=== PATIENT | male | born 1955 | race Caucasian/White ===

== ENCOUNTER → 2016-06-18 | Outpatient (CLI) | payer MEDICARE, OTHER ==
--- NOTE | 2016-06-18 15:26 | XR ---
Abdomen HISTORY: Renal stone Correlation to abdomen film 25 July 2014, CT abdomen pelvis 27 August 2015 Degenerative disc changes are present in the visualized spine, there is a spinal curvature. There may be underlying femoral acetabular impingement within the hips. Postop changes are noted. Surgical cli ps in the right upper quadrant. Lung bases are clear. Overlying bowel gas, retained fecal debris may obscure underlying detail. Right-sided calculus is suspected mid to lower pole of the right kidney me asuring approximately 6 mm. IMPRESSION: Right-sided nephrolithiasis.
== END | disposition home or self-care (01) ==
LOC: RADXRMAIN 14:53
PROVIDERS: ATTEND Physician Assistant
DX: N20.0 Calculus of kidney (principal)
CPT/HCPCS: 74000

== ENCOUNTER → 2016-07-14 | Outpatient (CLI) | payer MEDICARE, OTHER ==
--- NOTE | 2016-07-14 14:16 | MR ---
MR lumbar spine wo con danika sciatica Multiplanar, multiecho imaging of the lumbar spine was obtained without contrast on a 3 Breann magnet. REFERENCE:None. FINDINGS: Paraspinal soft tissues are normal. There is a mild levoscoliosis. There are mild retrolisthesis of L1 on L2 and L2 on L3 and there is a grade 1 anterolisthesis of L4 a nd L5. Cord signal is normal. The conus ends normally at the level of the superior endplate of L2. At T12-L1, there is disc space loss. The intervertebral foramina appear well maintained. There is a b road-based disc displacement. The facets are unremarkable. At L1-2, there is severe disc space loss. There is a mild retrolisthesis. There is a bilobed disc dis placement. There is mild, bilateral intervertebral foraminal narrowing. There is mild hypertrophic ch marine and capsulitis within the facets. There is moderate central canal stenosis. At L2-3, there is severe disc space loss. There is a mild retrolisthesis. There is a broad-based disc displacement. There are hypertrophic changes in the facets. There is moderate central canal compromi se. There is mild right-sided intervertebral foraminal narrowing. At L3-4, there is disc space loss. There is a broad-based disc displacement extending into the interv ertebral foramina bilaterally causing intervertebral foraminal narrowing. There are fairly marked hyp ertrophic changes in the facets. There is moderate central canal stenosis. At L4-5, there is a grade 1 anterolisthesis of L4 on L5. This prominent pseudodisc. The intervertebra l foramina appear reasonably well-maintained. There are marked degenerative changes in the facets. At L5-S1, there is disc space loss. There is a broad-based disc protrusion extending into both interv ertebral foramina and causing bilateral intervertebral foraminal narrowing. There is effacement of th e thecal sac without definite neural compression. There is mild hypertrophic changes and capsulitis w ithin the facets. IMPRESSION: 1. DIFFUSE DEGENERATIVE DISC DISEASE AND FACET ARTHROPATHY. 2. MULTILEVEL INTERVERTEBRAL FORAMINAL NARROWING. 3. VARYING DEGREES OF CENTRAL CANAL COMPROMISE, MOST MARKED AT L1-2. 4. GRADE 1 ANTEROLISTHESIS OF L4 ON L5. 5. BROAD-BASED DISC PROTRUSION, L5-S1, EXTENDING INTO BOTH INTERVERTEBRAL FORAMINA AND CAUSING BILATE RAL INTERVERTEBRAL FORAMINAL NARROWING.
== END | disposition home or self-care (01) ==
LOC: RADMRIMAIN 12:03
PROVIDERS: ATTEND Specialist
DX: M99.73 Connective tissue and disc stenosis of intervertebral foramina of lumbar region (principal); M51.27 Other intervertebral disc displacement, lumbosacral region; M43.16 Spondylolisthesis, lumbar region; M51.36 Other intervertebral disc degeneration, lumbar region; M46.96 Unspecified inflammatory spondylopathy, lumbar region
CPT/HCPCS: 72148

== ENCOUNTER → 2016-07-14 | Outpatient (CLI) | payer MEDICARE, OTHER ==
--- NOTE | 2016-07-14 14:09 | MR ---
EXAMINATION TYPE: MR shoulder LT wo con DATE OF EXAM: 07/14/2016 1:41 PM COMPARISON: Chest x-ray April 22, 2015 HISTORY: Left shoulder pain with difficulty raising overhead. TECHNIQUE: Multiplanar, multisequence imaging of the left shoulder is performed without contrast. FINDINGS: Exam is noted suboptimal as is significantly degraded by patient motion. Rotator Cuff: Increased signal is seen in the distal supraspinatus and infraspinatus tendons without definitive focal partial or full-thickness retracted tear. Rotator cuff muscle bulk is preserved. Sub scapularis tendon is grossly intact on axial image 17. Acromioclavicular Joint: There is joint space loss with moderate spurring and capsular hypertrophy. I nferior fat plane is maintained. Distal acromion morphology is unremarkable. Glenohumeral Joint: There is small to moderate glenohumeral joint effusion. Labrum: The labrum appears grossly intact given limitation of non-arthrogram study. Biceps Tendon: The long head of biceps is in normal location within bicipital groove. Bone marrow signal: No focal abnormal marrow signal is appreciated. Other: No additional significant abnormality is appreciated. IMPRESSION: Suboptimal study, there is tendinosis of distal supraspinatus and infraspinatus tendons. No significant rotator cuff or labral tear is identified. Other findings as noted above.
== END | disposition home or self-care (01) ==
LOC: RADMRIMAIN 12:10
PROVIDERS: ATTEND Physical Medicine & Rehabilitation
DX: M67.814 Other specified disorders of tendon, left shoulder (principal); M25.812 Other specified joint disorders, left shoulder

== ENCOUNTER → 2016-10-12 | Outpatient (CLI) | payer OTHER ==
--- NOTE | 2016-10-12 14:02 | MR ---
EXAMINATION TYPE: MR cervical spine wo con DATE OF EXAM: 10/12/2016 11:54 AM COMPARISON: Prior MR cervical spine 28 February 2015 HISTORY: cervical facet syndrome TECHNIQUE: Multiplanar, multisequence images of the cervical spine were acquired. C2-C3: There is some mild right-sided foraminal encroachment. No sizable disc herniation or significa nt central canal stenosis.. C3-C4: Posterior central disc herniation causes anterior mass effect on the thecal sac. There is bila teral foraminal encroachment similar to prior exam. Mild anterolisthesis grade 1 C3-4. There may be c ontact of the disc herniation with the anterior cervical cord. C4-C5: Foraminal encroachment is present right greater than left. Disc herniation is somewhat smaller than on prior exam. There may be contact the anterior cervical cord, there is mild central canal cody nosis. C5-C6: Posterior extension of endplate disc complex results in moderate central canal stenosis. There is bilateral foraminal encroachment due to lateral extension of endplate disc complex, uncovertebral joint hypertrophy facet arthropathy. Findings similar to prior exam. C6-C7: Bilateral foraminal encroachment is present. Posterior extension of endplate disc complex resu lts in mild anterior mass effect on the thecal sac. C7-T1: Left-sided greater than right foraminal encroachment is present. Cervical segments are intact. There is normal alignment. Cervical spinal cord is of normal signal. Craniovertebral junction relationships are within normal limits. Patient is status post anterior ce rvical discectomy and cervical fusion. Susceptibility artifact is present due to the anterior hardwar e at C4-5. IMPRESSION: Multilevel degenerative disc disease is noted as on prior exam. Multilevel foraminal encroachment. Po stop changes.
--- NOTE | 2016-10-12 14:58 | MR ---
EXAMINATION TYPE: MR shoulder LT wo con DATE OF EXAM: 10/12/2016 11:55 AM COMPARISON: Prior shoulder MRI June HISTORY: pain in lt shoulder TECHNIQUE: Multiplanar, multisequence imaging of the left shoulder is performed without contrast. FINDINGS: Rotator Cuff: Abnormal thickening and increased signal is present within the rotator cuff similar to previous exam. Partial tear is suspected at the level of the posterior insertion of the rotator cuff. Acromioclavicular Joint: Hypertrophic changes present causing mass effect on the musculotendinous mauro ction of supraspinatus. Glenohumeral Joint: Intact. Mild arthropathy change is suspected with remodeling present at the humer al head. Labrum: Similar appearance to prior exam. No definite labral tear. Biceps Tendon: Long head of biceps tendon shows normal position in the bicipital groove, there is ravi e fluid signal present along the tendon. Bone marrow signal: Maintained. No significant marrow edema. Other: Distal acromial spur is suspected. Fluid signal present in the subacromial subdeltoid bursa. IMPRESSION: Findings are similar to prior exam. Partial tear is suspected of the rotator cuff, there is tendinosi s present, correlate for impingement. There is some motion on the exam. Additional findings above.
--- NOTE | 2016-10-12 15:05 | MR ---
EXAMINATION TYPE: MR shoulder RT wo con DATE OF EXAM: 10/12/2016 12:14 PM COMPARISON: NONE HISTORY: pain in rt shoulder TECHNIQUE: Multiplanar, multisequence imaging of the right shoulder is performed without contrast. FINDINGS: Rotator Cuff: There is abnormal increased signal involving the rotator cuff. Partial inferior surface tear is suspected of the infraspinatus, there is some motion on the exam. Abnormal thickening presen t at the rotator cuff tendon. Acromioclavicular Joint: Hypertrophic changes present causing mass effect on the musculotendinous mauro ction of supraspinatus Glenohumeral Joint: Intact. Labrum: Superior labrum shows a tear, findings compatible with SLAP lesion. Biceps Tendon: The long head of biceps is in normal location within bicipital groove. Bone marrow signal: No focal abnormal marrow signal is appreciated. Other: Fluid signal is present in the subacromial subdeltoid bursa. Suspect a small distal acromial s pur. IMPRESSION: Partial full-thickness tear of the rotator cuff, correlate for impingement. Findings suggest SLAP les ion.
== END | disposition home or self-care (01) ==
LOC: RADMRIMAIN 10:46
PROVIDERS: ATTEND Physical Medicine & Rehabilitation
DX: M75.111 Incomplete rotator cuff tear or rupture of right shoulder, not specified as traumatic (principal); M50.30 Other cervical disc degeneration, unspecified cervical region; M75.82 Other shoulder lesions, left shoulder; V89.2XXA Person injured in unspecified motor-vehicle accident, traffic, initial encounter; Z98.890 Other specified postprocedural states
CPT/HCPCS: 72141

== ENCOUNTER 2017-03-06 13:03 | Emergency (ER) | payer MEDICARE, OTHER ==
[2017-03-06 13:17] VITALS: BP 141/83; PULSE 63; RESP 18; TEMP 97.9
--- NOTE | 2017-03-06 14:31 | XR ---
EXAMINATION TYPE: XR forearm RT, XR wrist complete RT DATE OF EXAM: 03/06/2017 CLINICAL HISTORY: Pain since yesterday TECHNIQUE: Two views of the right forearm are obtained. 4 views of the right wrist are acquired. COMPARISON: None. FINDINGS: There is no acute fracture or dislocation seen in the right radius or ulna. The right elb ow and joint appears within normal limits. The overlying soft tissue appears within normal limits. Images of right wrist show no acute fracture or dislocation. The carpal joint spaces are maintained. Overlying soft tissue is unremarkable. IMPRESSION: Unremarkable studies.
--- NOTE | 2017-03-06 14:35 | ED ---
Extremity Problem HPI - General Chief complaint: Extremity Problem,Nontraumatic Stated complaint: Wrist/Hand Injury Time Seen by Provider: 03/06/17 13:44 Source: patient Mode of arrival: ambulatory Limitations: no limitations - History of Present Illness Initial comments: Patient is a right-handed 61-year-old male with medical history significant for right carpal tunnel syndrome, bilateral rotator cuff disease, chronic neck pain, and chronic lower back pain. Patient presents to the emergency department with chief complaint of right wrist pain that started yesterday at 12 PM. Patient currently rates pain 8 out of 10 described as sharp and burning. Pain is exacerbated with movement, minimally relieved at rest. Patient states the pain is radiating up his right forearm and down into his hand. Patient denies trauma or injury to right wrist. Patient states he see a neurologist in [place] for chronic pain management and received steroid injections approximately 2 weeks ago for neck and shoulder pain. Patient denies recent fevers, chills, nausea, vomiting, shortness of breath, chest pain, or abdominal pain. Patient reports chronic numbness and tingling to his right ring finger and right middle finger. Patient states he normally takes [place] and Lyrica for pain but is currently out of [place]. Patient states he took Lyrica this morning without relief. - Related Data Home Medications Medication Instructions Recorded Confirmed Amitriptyline HCl [Elavil] 75 mg PO HS 07/25/14 07/27/14 Aspirin EC [Ecotrin] 81 mg PO DAILY 07/25/14 07/27/14 Atorvastatin [Lipitor] 10 mg PO DAILY 07/25/14 07/27/14 Furosemide [Lasix] 20 mg PO DAILY 07/25/14 07/27/14 Lisinopril [Zestril] 5 mg PO DAILY 07/25/14 07/27/14 Metoprolol Tartrate [Lopressor] 25 mg PO BID 07/25/14 07/27/14 Modafinil [Provigil] 100 mg PO DAILY 07/25/14 07/27/14 Multivitamin [Men's Multi-Vitamin] 1 each PO DAILY 07/25/14 07/27/14 Potassium Chloride [K-Tab ER] 10 meq PO DAILY 07/25/14 07/27/14 Sertraline HCl [Zoloft] 100 mg PO DAILY 07/25/14 07/27/14 lamoTRIgine [LaMICtal] 150 mg PO BID 07/25/14 07/27/14 metFORMIN HCL [Glucophage] 500 mg PO DAILY 07/25/14 07/27/14 Ferrous Sulfate [Feosol] 325 mg PO DAILY 03/06/17 03/06/17 Fish Oil/Dha/Epa [Fish Oil 1,200 1 cap PO DAILY 03/06/17 03/06/17 mg Fish Oil] Gabapentin 800 mg PO BID 03/06/17 03/06/17 HYDROcodone/APAP 5-325MG [[place] 1 tab PO BID 03/06/17 03/06/17 5-325] Previous Rx's Medication Instructions Recorded HYDROcodone/APAP 5-325MG [[place] 1 tab PO Q4HR PRN #12 tab 03/06/17 5-325] Allergies Allergy/AdvReac Type Severity Reaction Status Date / Time codeine Allergy Hallucinati Verified 03/06/17 14:33 ons donepezil HCl [From Aricept] Allergy Hallucinati Verified 03/06/17 14:33 ons Penicillins Allergy Unknown Verified 03/06/17 14:33 Childhood Review of Systems ROS Statement: Those systems with pertinent positive or pertinent negative responses have been documented in the HPI. ROS Other: All systems not noted in ROS Statement are negative. Past Medical History Past Medical History: Diabetes Mellitus, Hyperlipidemia, Hypertension, Rheumatoid Arthritis (RA) Additional Past Medical History / Comment(s): brain injury, neuropathy, chronic back and shoulder pain History of Any Multi-Drug Resistant Organisms: None Reported Past Surgical History: Cholecystectomy, Hernia Repair Additional Past Surgical History / Comment(s): splenectomy, neck surg, left eye Past Psychological History: Anxiety, Bipolar, Depression, Schizophrenia Smoking Status: Current every day smoker Past Alcohol Use History: Daily Past Drug Use History: None Reported General Exam Limitations: no limitations General appearance: alert, in no apparent distress Head exam: Present: atraumatic, normocephalic, normal inspection Eye exam: Present: normal appearance ENT exam: Present: normal exam, mucous membranes moist, normal external ear exam Neck exam: Present: normal inspection, full ROM. Absent: tenderness, lymphadenopathy Respiratory exam: Present: normal lung sounds bilaterally. Absent: respiratory distress, wheezes, rales, rhonchi, chest wall tenderness Cardiovascular Exam: Present: regular rate, normal rhythm, normal heart sounds. Absent: systolic murmur GI/Abdominal exam: Present: soft, normal bowel sounds. Absent: distended, tenderness Right Elbow exam: Present: normal inspection, full ROM. Absent: tenderness, swelling Forearm Wrist exam: Present: normal inspection, tenderness (Right wrist tender to palpation over both distal ulnar and radial bones. Decreased range of motion with flexion and extension, ulnar and radial deviation secondary to pain. ). Absent: full ROM (Decreased range of motion), swelling, ecchymosis, deformity Hand Wrist exam: Absent: full ROM Neuro motor exam: Present: wrist extension intact (Painful), thumb IP flexion intact, thumb adduction intact, fingers 2-5 abduction intact. Absent: thumb opposition intact Neurosensory exam: Present: 2-point discrimination, radial nerve intact, median nerve intact. Absent: ulnar nerve intact Vascular: Present: normal capillary refill, radial pulse, brachial pulse, ulnar pulse. Absent: vascular compromise, Pallo Neurological exam: Present: alert, oriented X3 Psychiatric exam: Present: normal affect, normal mood Skin exam: Present: warm, dry, intact, normal color Course Vital Signs 03/06/17 13:14 Temperature 97.9 F Pulse Rate 63 Respiratory 18 Rate Blood Pressure 141/83 O2 Sat by Pulse 100 Oximetry Procedures - Orthopedic Splinting/Casting Injury #1 Side: right Upper Extremity Injury Location: wrist Upper Extremity Immobilizer: volar splint Additional Comments: No neurovascular compromise after splint application; the splint was in good alignment and the patient had good sensation and capillary refill at time of discharge. Medical Decision Making - Medical Decision Making Right wrist sprain. X-ray of right wrist and right forearm with no acute fracture or dislocation. Patient placed in a volar splint and given prescription for [place] 5 for 2 days until he can pick up attendant his regular prescription. Patient instructed to [facility]. Patient instructed to return to the emergency department with any new or worsening symptoms. Patient agrees to treatment plan. - Radiology Data Radiology results: report reviewed X-ray right wrist and right forearm: No acute fracture or dislocation seen on the right radius ulna. The right elbow joint appears within normal limits. Overlying soft tissue appears within normal limits. Images of right wrist show no acute fracture or dislocation. Carpal joint spaces are maintained. Overlying soft tissue is unremarkable. Disposition Clinical Impression: Right wrist sprain Disposition: HOME SELF-CARE Condition: Good Instructions: Splint Care (ED) Additional Instructions: Avoid activity that causes pain Ice 20 minutes 4 times a day usually for 2-3 days Splint applied to provide support and limit swelling Keep elevated as much as possible 24-48 hours. Return to the emergency department with symptoms of increased swelling, pain, numbness, tingling, or hand feeling cold to touch. Follow-up with primary service and orthopedic service as directed. Prescriptions: HYDROcodone/APAP 5-325MG [[place] 5-325] 1 tab PO Q4HR PRN #12 tab PRN Reason: Pain Referrals: Rishi Pettit DO [Primary Care Provider] - 1-2 days Rishi Rush DO [Doctor of Osteopathic Medicine] - 1-2 days Time of Disposition: 15:01
[2017-03-06] MEDS ORDERED: HYDROcodone/APAP 5-325MG 1 EACH TAB PO STA (14:57)
== END 2017-03-06 15:18 | disposition home or self-care (01) ==
LOC: EC 13:03
DX: S63.501A Unspecified sprain of right wrist, initial encounter (principal); M54.2 Cervicalgia; M54.5 Low back pain; G89.29 Other chronic pain; E78.5 Hyperlipidemia, unspecified; I10 Essential (primary) hypertension; M06.9 Rheumatoid arthritis, unspecified; E11.40 Type 2 diabetes mellitus with diabetic neuropathy, unspecified; F41.9 Anxiety disorder, unspecified; F31.9 Bipolar disorder, unspecified; F20.9 Schizophrenia, unspecified; F17.200 Nicotine dependence, unspecified, uncomplicated; Z79.82 Long term (current) use of aspirin; Z79.84 Long term (current) use of oral hypoglycemic drugs; Z79.891 Long term (current) use of opiate analgesic; Z79.899 Other long term (current) drug therapy; Z88.0 Allergy status to penicillin; Z88.5 Allergy status to narcotic agent; Z88.8 Allergy status to other drugs, medicaments and biological substances
CPT/HCPCS: 29125; 99283

== ENCOUNTER 2017-04-21 12:35 | Emergency (ER) | payer MEDICARE, OTHER ==
[2017-04-21 13:17] LABS: Basophils # (A) 0.1 k/uL (0-0.2); Basophils % (A) 1 %; CH 32.4; Eosinophils # (A) 0.5 k/uL (0-0.7); Eosinophils % (A) 4 %; HDW 2.54; HGB 15.2 gm/dL (13.0-17.5); Luc # (Auto) 0.19; Luc % (Auto) 2; Lymphocytes # (A) 3.6 k/uL (1.0-4.8); Lymphocytes % (A) 34 %; MCH 31.4 pg (25.0-35.0); MCHC 31.7 g/dL (31.0-37.0); MCV 98.8 fL (80.0-100.0); Mean Platelet Volume 7.8; Monocytes # (A) 0.8 k/uL (0-1.0); Monocytes % (A) 7 %; Neutrophils # (A) 5.6 k/uL (1.3-7.7); Neutrophils % (A) 52 %; RBC 4.86 m/uL (4.30-5.90); RDW 14.3 % (11.5-15.5); WBC 10.8 k/uL (3.8-10.6); WBC (Perox) 11.01
[2017-04-21 13:22] LABS: Partial Thromboplastin Time 24.5 sec (22.0-30.0); Prothrombin Time 10.3 sec (9.0-12.0)
--- NOTE | 2017-04-21 13:22 | ED ---
General Adult HPI - General Chief complaint: Fall Stated complaint: fall Time Seen by Provider: 04/21/17 12:40 Source: patient, EMS, RN notes reviewed Mode of arrival: EMS Limitations: no limitations - History of Present Illness Initial comments: 61-year-old male with history of traumatic brain injury presents status post fall fall. Patient fell striking his head. EMS believe there was loss of consciousness. Patient does not remember the events immediately after the fall. He does remember falling, states he lost his balance and tripped. Denied any preceding symptoms. Denied chest pain or shortness of breath. Currently complaining of head and neck pain and left shoulder pain. Denies chest pain, denies abdominal pain. Denies lower extremity pain. Patient was ambulatory after the fall. Denies fever or chills. Denies nausea vomiting or diarrhea. - Related Data Home Medications Medication Instructions Recorded Confirmed Amitriptyline HCl [Elavil] 75 mg PO HS 07/25/14 04/21/17 Aspirin EC [Ecotrin] 81 mg PO DAILY 07/25/14 04/21/17 Atorvastatin [Lipitor] 10 mg PO DAILY 07/25/14 04/21/17 Furosemide [Lasix] 20 mg PO DAILY 07/25/14 04/21/17 Lisinopril [Zestril] 5 mg PO DAILY 07/25/14 04/21/17 Metoprolol Tartrate [Lopressor] 25 mg PO BID 07/25/14 04/21/17 Modafinil [Provigil] 100 mg PO DAILY 07/25/14 04/21/17 Multivitamin [Men's Multi-Vitamin] 1 tab PO DAILY 07/25/14 04/21/17 Potassium Chloride [K-Tab ER] 10 meq PO DAILY 07/25/14 04/21/17 Sertraline HCl [Zoloft] 100 mg PO DAILY 07/25/14 04/21/17 lamoTRIgine [LaMICtal] 150 mg PO BID 07/25/14 04/21/17 metFORMIN HCL [Glucophage] 500 mg PO DAILY 07/25/14 04/21/17 Fish Oil/Dha/Epa [Fish Oil 1,200 1 cap PO DAILY 03/06/17 04/21/17 mg Fish Oil] Gabapentin 800 mg PO BID 03/06/17 04/21/17 Ferrous Sulfate [Iron] 325 mg PO DAILY 04/21/17 04/21/17 HYDROcodone/APAP 7.5-325MG [[place] 1 tab PO BID PRN 04/21/17 04/21/17 7.5-325] Allergies Allergy/AdvReac Type Severity Reaction Status Date / Time codeine Allergy Hallucinati Verified 04/21/17 12:54 ons donepezil HCl [From Aricept] Allergy Hallucinati Verified 04/21/17 12:54 ons Penicillins Allergy Unknown Verified 04/21/17 12:54 Childhood Review of Systems ROS Statement: Those systems with pertinent positive or pertinent negative responses have been documented in the HPI. ROS Other: All systems not noted in ROS Statement are negative. Past Medical History Past Medical History: Diabetes Mellitus, Hyperlipidemia, Hypertension, Rheumatoid Arthritis (RA) Additional Past Medical History / Comment(s): brain injury, neuropathy, chronic back and shoulder pain History of Any Multi-Drug Resistant Organisms: None Reported Past Surgical History: Cholecystectomy, Hernia Repair Additional Past Surgical History / Comment(s): splenectomy, neck surg, left eye Past Psychological History: Anxiety, Bipolar, Depression, Schizophrenia Smoking Status: Current every day smoker Past Alcohol Use History: Daily Past Drug Use History: None Reported General Exam Limitations: no limitations General appearance: alert, in no apparent distress Head exam: Present: atraumatic, normocephalic Eye exam: Absent: PERRL (Left pupil nonreactive status post lensectomy) ENT exam: Present: normal exam Neck exam: Present: normal inspection. Absent: tenderness Respiratory exam: Present: normal lung sounds bilaterally. Absent: respiratory distress Cardiovascular Exam: Present: regular rate, normal rhythm GI/Abdominal exam: Present: soft. Absent: distended, tenderness Extremities exam: Present: normal inspection. Absent: full ROM, tenderness Back exam: Present: normal inspection, full ROM. Absent: tenderness Neurological exam: Present: alert, oriented X3. Absent: motor sensory deficit Psychiatric exam: Present: normal affect, normal mood Skin exam: Present: warm, dry, intact. Absent: cyanosis, diaphoretic Course Vital Signs 04/21/17 04/21/17 04/21/17 12:41 13:45 15:00 Temperature 98.6 F Pulse Rate 65 56 L 71 Respiratory 18 18 20 Rate Blood Pressure 135/77 151/56 141/58 O2 Sat by Pulse 97 97 99 Oximetry EKG Findings - EKG Comments: EKG Findings:: EKG shows normal sinus rhythm, ventricular rate 64, NC interval 162, QRS duration 112, QTC 420, no signs of arrhythmia or ischemia Medical Decision Making - Medical Decision Making 61-year-old presents status post fall. Patient states he lost his balance, mechanical fall. Complaining of head and neck pain. As well as shoulder pain. Laboratory studies obtained, within normal limits. EKG shows no arrhythmia or ischemia. CT head is negative for intracranial process, CT cervical spine negative for fracture subluxation. X-ray of shoulder negative for fracture dislocation. Chest x-ray shows possible right 10th rib fracture, however patient has no pain in this region. Doubt acute fracture. Pelvis x-ray shows no acute findings. Patient will follow-up with primary care physician. Discharged in stable condition. - Lab Data Result diagrams: 04/21/17 13:00 04/21/17 13:00 Lab Results 04/21/17 04/21/17 04/21/17 Range/Units 13:00 13:00 13:00 WBC 10.8 H (3.8-10.6) k/uL RBC 4.86 (4.30-5.90) m/uL Hgb 15.2 (13.0-17.5) gm/dL Hct 48.0 (39.0-53.0) % MCV 98.8 (80.0-100.0) fL MCH 31.4 (25.0-35.0) pg MCHC 31.7 (31.0-37.0) g/dL RDW 14.3 (11.5-15.5) % Plt Count 306 (150-450) k/uL Neutrophils % 52 % Lymphocytes % 34 % Monocytes % 7 % Eosinophils % 4 % Basophils % 1 % Neutrophils # 5.6 (1.3-7.7) k/uL Lymphocytes # 3.6 (1.0-4.8) k/uL Monocytes # 0.8 (0-1.0) k/uL Eosinophils # 0.5 (0-0.7) k/uL Basophils # 0.1 (0-0.2) k/uL PT 10.3 (9.0-12.0) sec INR 1.0 (<1.2) APTT 24.5 (22.0-30.0) sec Sodium 139 (137-145) mmol/L Potassium 4.4 (3.5-5.1) mmol/L Chloride 102 (98-107) mmol/L Carbon Dioxide 29 (22-30) mmol/L Anion Gap 8 mmol/L BUN 13 (9-20) mg/dL Creatinine 0.76 (0.66-1.25) mg/dL Est GFR (MDRD) Af Amer >60 (>60 ml/min/1.73 sqM) Est GFR (MDRD) Non-Af >60 (>60 ml/min/1.73 sqM) Glucose 95 (74-99) mg/dL Calcium 9.7 (8.4-10.2) mg/dL Total Bilirubin 0.3 (0.2-1.3) mg/dL AST 21 (17-59) U/L ALT 30 (21-72) U/L Alkaline Phosphatase 109 (38-126) U/L Total Protein 7.4 (6.3-8.2) g/dL Albumin 4.2 (3.5-5.0) g/dL Disposition Clinical Impression: Fall, Shoulder contusion, Closed head injury Disposition: HOME SELF-CARE Condition: Good Instructions: Fall Prevention for Older Adults (ED), Concussion (ED), Facial Contusion (ED) Referrals: Rishi Pettit DO [Primary Care Provider] - 1-2 days Time of Disposition: 15:40
[2017-04-21 13:30] LABS: ALT 30 U/L (21-72); AST 21 U/L (17-59); Alkaline Phosphatase 109 U/L (38-126); Anion Gap 8 mmol/L; Blood Urea Nitrogen 13 mg/dL (9-20); Calcium 9.7 mg/dL (8.4-10.2); Carbon Dioxide 29 mmol/L (22-30); Chloride 102 mmol/L (98-107); Glucose 95 mg/dL (74-99); Non-African American GFR(MDRD) >60 (>60 ml/min/1.73 sqM); Potassium 4.4 mmol/L (3.5-5.1); Sodium 139 mmol/L (137-145); Total Bilirubin 0.3 mg/dL (0.2-1.3); Total Protein 7.4 g/dL (6.3-8.2)
--- NOTE | 2017-04-21 14:05 | CT ---
EXAMINATION TYPE: CT brain cspine wo con DATE OF EXAM: 04/21/2017 COMPARISON: CT cervical spine April 08, 2015. CT brain December 17, 2011 HISTORY: Patient poor historian. Fall. CT DLP: 1836 mGycm. Automated Exposure Control for Dose Reduction was Utilized. TECHNIQUE: CT scan of the head and cervical spine are performed without contrast. FINDINGS: There is no acute intracranial hemorrhage or midline shift identified. The ventricles an d sulci are within normal limits in size. Some vague areas of low-attenuation throughout the white ma tter redemonstrated, this is nonspecific finding but most likely on basis of product of chronic small vessel ischemic change in patient this age. There is mild to moderate mucosal thickening in visualiz ed portion of ethmoid and sphenoid sinuses as well as inferior frontal sinuses. Cervical spine is visualized in its entirety from C1 through upper thoracic levels and demonstrates s table and straightened alignment without evidence of acute fracture or dislocation. Prevertebral sof t tissue appears within normal limits. The C1-C2 articulation is within normal limits on the coronal images. There is new anterior fusion plate and anterior disc material C4-C5 level. There is now moderate to s evere disc space narrowing posteriorly at this level. There is persistent moderate to severe spurring and disc space narrowing C5-C6 and C6-C7 levels. Spinal canal is grossly preserved. Review of axial images show some uncovertebral facet degenerative changes right C2-C3 level, and bilateral C3-C4 leve l contributing to bilateral neural foraminal narrowing. There are some marginal spurring contributing to bilateral neural foraminal narrowing in the mid to lower cervical spine. Emphysematous change is seen in visualized lung apices. Prominent but subcentimeter lymph nodes scattered throughout the neck are appreciated bilaterally. IMPRESSION: 1. There is no acute fracture or dislocation evident in the cervical spine. Interval surgery C4-C5 le rolando. Stable and straightening alignment is noted. 2. No acute intracranial hemorrhage or midline shift. Mild to moderate nonspecific white matter bennett es most likely on basis of product of chronic small vessel ischemic change in patient of this age red emonstrated.
--- NOTE | 2017-04-21 15:06 | XR ---
EXAMINATION TYPE: XR chest 1V portable DATE OF EXAM: 04/21/2017 COMPARISON: Prior chest x-ray 04/22/2015 HISTORY: Fall, pain TECHNIQUE: Single frontal view of the chest is obtained. FINDINGS: There is no focal air space opacity, pleural effusion, or pneumothorax seen. The cardiac silhouette size is within normal limits. There are overlying cardiac leads. The osseous structures a re remarkable for possible displaced posterior rib fracture on the right 10th rib. IMPRESSION: Possible posterior right 10th rib fracture.
--- NOTE | 2017-04-21 15:07 | XR ---
AP pelvis HISTORY: Trauma and pain Single frontal view of the pelvis, no comparisons Bone mineralization, joint spaces and alignment are maintained. Degenerative disc changes in the visu alized spine. Postop changes are noted in the abdomen. IMPRESSION: No acute fracture or dislocation is evident.
--- NOTE | 2017-04-21 15:09 | XR ---
Left shoulder HISTORY: Trauma and pain 3 views of the left shoulder No comparisons Hypertrophic change present at the acromioclavicular joint. Ossific density present lateral to the pr oximal left humerus is well-corticated and not felt likely to be acute. Alignment, bone mineralizatio n are maintained. Left lung apex as visualized is normal. Suspect local soft tissue swelling. IMPRESSION: No acute fracture or dislocation.
[2017-04-21] MEDS ORDERED: MORPHINE SULFATE 2 MG/ML SYRINGE IVP STA (15:47)
[2017-04-21] MEDS ORDERED: KETOROLAC 30 MG/ML 1 ML VIAL IVP STA (15:47)
[2017-04-21 16:10] VITALS: BP 124/68; PULSE 66; RESP 18; TEMP 98.3
== END 2017-04-21 16:15 | disposition home or self-care (01) ==
LOC: EC 12:35
DX: S40.012A Contusion of left shoulder, initial encounter (principal); S09.90XA Unspecified injury of head, initial encounter; H27.02 Aphakia, left eye; M54.2 Cervicalgia; E78.5 Hyperlipidemia, unspecified; I10 Essential (primary) hypertension; G62.9 Polyneuropathy, unspecified; E11.9 Type 2 diabetes mellitus without complications; G89.29 Other chronic pain; F31.9 Bipolar disorder, unspecified; F41.9 Anxiety disorder, unspecified; F17.200 Nicotine dependence, unspecified, uncomplicated; Z79.82 Long term (current) use of aspirin; Z79.84 Long term (current) use of oral hypoglycemic drugs; Z79.899 Other long term (current) drug therapy; Z88.0 Allergy status to penicillin; Z88.5 Allergy status to narcotic agent; Z88.8 Allergy status to other drugs, medicaments and biological substances; Z98.890 Other specified postprocedural states; W01.10XA Fall on same level from slipping, tripping and stumbling with subsequent striking against unspecified object, initial encounter; Y92.59 Other trade areas as the place of occurrence of the external cause
CPT/HCPCS: 36415; 93005; 80053; 85025; 85610; 85730; 71010; 72170; 73030; 72125; 70450; 99285; 96374; 96375; J1885; J2270

== ENCOUNTER → 2017-06-21 | Outpatient (CLI) | payer MEDICARE, OTHER ==
[2017-06-21 15:43] LABS: Basophils # (A) 0.1 k/uL (0-0.2); Basophils % (A) 1 %; Eosinophils # (A) 0.3 k/uL (0-0.7); Eosinophils % (A) 3 %; HCT 50.3 % (39.0-53.0); HGB 16.4 gm/dL (13.0-17.5); Lymphocytes # (A) 4.1 k/uL (1.0-4.8); Lymphocytes % (A) 35 %; MCH 31.5 pg (25.0-35.0); MCHC 32.6 g/dL (31.0-37.0); MCV 96.6 fL (80.0-100.0); Mean Platelet Volume 7.5; Monocytes # (A) 0.6 k/uL (0-1.0); Monocytes % (A) 5 %; Neutrophils # (A) 6.3 k/uL (1.3-7.7); Neutrophils % (A) 54 %; Platelet Count 281 k/uL (150-450); RBC 5.21 m/uL (4.30-5.90); RDW 13.4 % (11.5-15.5); WBC 11.7 k/uL (3.8-10.6)
[2017-06-21 16:14] LABS: ALT 25 U/L (21-72); AST 20 U/L (17-59); Albumin 4.8 g/dL (3.5-5.0); Alkaline Phosphatase 126 U/L (38-126); Anion Gap 12 mmol/L; Blood Urea Nitrogen 15 mg/dL (9-20); Calcium 10.9 mg/dL (8.4-10.2); Carbon Dioxide 31 mmol/L (22-30); Chloride 99 mmol/L (98-107); Cholesterol 158 mg/dL (<200); Creatine Kinase 83 U/L (55-170); Glucose 108 mg/dL (74-99); HDL Cholesterol 47 mg/dL (40-60); LDL Cholesterol,Calculated 91 mg/dL (0-99); Sodium 142 mmol/L (137-145); Total Bilirubin 0.6 mg/dL (0.2-1.3); Total Protein 8.2 g/dL (6.3-8.2); Triglycerides 98 mg/dL (<150)
== END | disposition home or self-care (01) ==
LOC: LABWHC1 14:40
PROVIDERS: ATTEND Physician Assistant Medical
DX: E78.2 Mixed hyperlipidemia (principal); E11.9 Type 2 diabetes mellitus without complications; I10 Essential (primary) hypertension; E55.9 Vitamin D deficiency, unspecified
CPT/HCPCS: 36415; 80053; 80061; 82306; 82550; 84153; 84154; 84443; 85025

== ENCOUNTER 2017-10-14 18:36 | Emergency (ER) | payer MEDICARE, OTHER ==
[2017-10-14 18:56] VITALS: BP 126/73; PULSE 83; RESP 18; TEMP 99.1
--- NOTE | 2017-10-14 19:40 | XR ---
EXAMINATION TYPE: XR foot limited RT DATE OF EXAM: 10/14/2017 COMPARISON: NONE HISTORY: Laceration. Pain. TECHNIQUE: 2 views FINDINGS: There is some spurring at the first MP joint. I see no fracture nor dislocation. There is n o sign of a foreign body. There are small plantar and Achilles calcaneal spurs. IMPRESSION: Mild spurring. No fracture seen. No foreign body seen.
--- NOTE | 2017-10-14 19:50 | ED ---
Lower Extremity Injury HPI - General Chief Complaint: Extremity Injury, Lower Stated Complaint: Stepped on glass Time Seen by Provider: 10/14/17 19:13 Source: patient, RN notes reviewed Mode of arrival: ambulatory Limitations: no limitations - History of Present Illness Initial Comments: This is a 62-year-old male who presents to the emergency department with chief complaint of right foot injury. Patient states that 2 hours prior to arrival he was walking barefoot outside. He states that he stepped on what he thought was a piece of glass. He states that he felt something in there and pulled but was unsure if he pulled it out. He called his friend who came over and cleaned the wound with alcohol and then wrapped it. Patient states that when he steps down he feels something in his foot. Denies any other injuries or trauma. Denies recent fevers or chills, chest pain or shortness breath, abdominal pain, nausea or vomiting. - Related Data Home Medications Medication Instructions Recorded Confirmed Amitriptyline HCl [Elavil] 75 mg PO HS 07/25/14 10/14/17 Aspirin EC [Ecotrin] 81 mg PO DAILY 07/25/14 10/14/17 Atorvastatin [Lipitor] 10 mg PO DAILY 07/25/14 10/14/17 Furosemide [Lasix] 20 mg PO DAILY 07/25/14 10/14/17 Lisinopril [Zestril] 5 mg PO DAILY 07/25/14 10/14/17 Metoprolol Tartrate [Lopressor] 25 mg PO BID 07/25/14 10/14/17 Modafinil [Provigil] 100 mg PO DAILY 07/25/14 10/14/17 Multivitamin [Men's Multi-Vitamin] 1 tab PO DAILY 07/25/14 10/14/17 Potassium Chloride [K-Tab ER] 10 meq PO DAILY 07/25/14 10/14/17 Sertraline HCl [Zoloft] 100 mg PO DAILY 07/25/14 10/14/17 lamoTRIgine [LaMICtal] 150 mg PO BID 07/25/14 10/14/17 metFORMIN HCL [Glucophage] 500 mg PO DAILY 07/25/14 10/14/17 Fish Oil/Dha/Epa [Fish Oil 1,200 1 cap PO DAILY 03/06/17 10/14/17 mg Fish Oil] Gabapentin 800 mg PO BID 03/06/17 10/14/17 Ferrous Sulfate [Iron] 325 mg PO DAILY 04/21/17 10/14/17 HYDROcodone/APAP 7.5-325MG [[place] 1 tab PO BID PRN 04/21/17 10/14/17 7.5-325] Allergies Allergy/AdvReac Type Severity Reaction Status Date / Time codeine Allergy Hallucinati Verified 10/14/17 19:13 ons donepezil HCl [From Aricept] Allergy Hallucinati Verified 10/14/17 19:13 ons Penicillins Allergy Unknown Verified 10/14/17 19:13 Childhood Review of Systems ROS Statement: Those systems with pertinent positive or pertinent negative responses have been documented in the HPI. ROS Other: All systems not noted in ROS Statement are negative. Past Medical History Past Medical History: Diabetes Mellitus, Hyperlipidemia, Hypertension, Rheumatoid Arthritis (RA) Additional Past Medical History / Comment(s): brain injury, neuropathy, chronic back and shoulder pain History of Any Multi-Drug Resistant Organisms: None Reported Past Surgical History: Cholecystectomy, Hernia Repair Additional Past Surgical History / Comment(s): splenectomy, neck surg, left eye Past Psychological History: Anxiety, Bipolar, Depression, Schizophrenia Smoking Status: Current every day smoker Past Alcohol Use History: Daily Past Drug Use History: None Reported General Exam - General Exam Comments Initial Comments: General: Awake and alert, well-developed; in no apparent distress. Patient lying comfortably in ED stretcher. HEENT: Head atraumatic, normocephalic. Pupils are equal, round and reactive to light. Extraocular movements intact. Oropharynx moist without erythema or exudate. Neck: Supple. Normal ROM. Cardiovascular: Regular rate and rhythm. No murmurs, rubs or gallops. Chest symmetrical. Respiratory: Lungs clear to auscultation bilaterally. No wheezes, rales or rhonchi. Normal respiratory effort with no use of accessory muscles. Musculoskeletal: Normal ROM, no tenderness bilateral upper and lower extremities. Ambulates with a cane. Skin: [place], warm and dry. There is an approximately 1.0 cm superficial laceration distal lateral plantar surface of the right foot. No bleeding. Neurological: Alert and oriented x3. CN II-XII grossly intact. Speech is fluent and answers are appropriate. No focal neuro deficits. Psychiatric: Normal mood and affect. No overt signs of depression or anxiety noted. Limitations: no limitations Course Vital Signs 10/14/17 18:53 Temperature 99.1 F Pulse Rate 83 Respiratory 18 Rate Blood Pressure 126/73 O2 Sat by Pulse 96 Oximetry Medical Decision Making - Medical Decision Making This is a 62-year-old male who presents to the emergency department with chief complaint of right foot injury. Patient states that he believes that there is a piece of glass stuck in his foot. There is an approximately 1.0 cm superficial linear laceration at the plantar surface of the right foot. This area was irrigated and cleansed extensively. Wound was explored. No evidence of a foreign body. X-ray was obtained which also revealed no evidence for foreign body. Tetanus will be updated. Patient's vital signs are stable and he is in acute distress. He will be discharged home at this time. All questions answered. - Radiology Data Radiology results: report reviewed, image reviewed X-ray right foot impression: Mild sprain. No fracture seen. No foreign body seen. Disposition Clinical Impression: Laceration of right foot Disposition: HOME SELF-CARE Condition: Good Instructions: Laceration (ED) Additional Instructions: Please follow up with primary care provider within 1-2 days. Return to emergency department if symptoms should worsen or any concerns arise. Is patient prescribed a controlled substance at d/c from ED?: No Referrals: Rishi Pettit DO [Primary Care Provider] - 1-2 days Time of Disposition: 19:50
[2017-10-14] MEDS ORDERED: DIPH,PERTUS(ACELL)TETVAC-LF 0.5 ML VIAL IM ONE (20:00)
== END 2017-10-14 20:16 | disposition home or self-care (01) ==
LOC: EC 18:36
DX: S91.311A Laceration without foreign body, right foot, initial encounter (principal); E78.5 Hyperlipidemia, unspecified; I10 Essential (primary) hypertension; M06.9 Rheumatoid arthritis, unspecified; E11.40 Type 2 diabetes mellitus with diabetic neuropathy, unspecified; F31.9 Bipolar disorder, unspecified; F20.9 Schizophrenia, unspecified; F41.9 Anxiety disorder, unspecified; F17.200 Nicotine dependence, unspecified, uncomplicated; Z79.82 Long term (current) use of aspirin; Z79.899 Other long term (current) drug therapy; Z79.84 Long term (current) use of oral hypoglycemic drugs; Z88.0 Allergy status to penicillin; Z88.5 Allergy status to narcotic agent; Z88.8 Allergy status to other drugs, medicaments and biological substances; Z23 Encounter for immunization; W25.XXXA Contact with sharp glass, initial encounter
CPT/HCPCS: 90471; 90715; 99283

== ENCOUNTER 2018-03-12 06:22 | Emergency (ER) | payer MEDICARE, OTHER ==
[2018-03-12 06:42] VITALS: TEMP 98
[2018-03-12] MEDS ORDERED: ORPHENADRINE 30 MG/ML 2 ML VIAL IVP STA (07:21)
[2018-03-12] MEDS ORDERED: KETOROLAC 30 MG/ML 1 ML VIAL IVP STA ×2 (07:21→09:13)
--- NOTE | 2018-03-12 07:24 | ED ---
Back Pain HPI - General Chief Complaint: Back Pain/Injury Stated Complaint: Lower Back Pain Time Seen by Provider: 03/12/18 07:00 Source: patient, RN notes reviewed Limitations: no limitations - History of Present Illness Initial Comments: This is a 62-year-old male with a history of closed head injury and history of cervical disc surgery as well as lumbar disc disease who states he had the onset 2 days ago stabbing severe left low back pain that radiates down to his left buttock. He denies any injury denies any cough or sneeze a slip and falls bending or lifting. He states that he does have a closed head injury and sometimes memory isn't the best. He denies any fevers chills nausea vomiting sweats dysuria hematuria. No weakness to his lower extremities no urinary or fecal incontinence. No other modifying factors he is not sure when he did he also states she's not been sleeping very well because of the pain. MD Complaint: back pain - Related Data Home Medications Medication Instructions Recorded Confirmed Amitriptyline HCl [Elavil] 75 mg PO HS 07/25/14 03/12/18 Aspirin EC [Ecotrin] 81 mg PO DAILY 07/25/14 03/12/18 Atorvastatin [Lipitor] 10 mg PO DAILY 07/25/14 03/12/18 Furosemide [Lasix] 20 mg PO DAILY 07/25/14 03/12/18 Lisinopril [Zestril] 5 mg PO DAILY 07/25/14 03/12/18 Metoprolol Tartrate [Lopressor] 25 mg PO BID 07/25/14 03/12/18 Modafinil [Provigil] 100 mg PO DAILY 07/25/14 03/12/18 Multivitamin [Men's Multi-Vitamin] 1 tab PO DAILY 07/25/14 03/12/18 Potassium Chloride [K-Tab ER] 10 meq PO DAILY 07/25/14 03/12/18 Sertraline HCl [Zoloft] 100 mg PO DAILY 07/25/14 03/12/18 lamoTRIgine [LaMICtal] 150 mg PO BID 07/25/14 03/12/18 metFORMIN HCL [Glucophage] 500 mg PO DAILY 07/25/14 03/12/18 Fish Oil/Dha/Epa [Fish Oil 1,200 1 cap PO DAILY 03/06/17 03/12/18 mg Fish Oil] Gabapentin 800 mg PO BID 03/06/17 03/12/18 Ferrous Sulfate [Iron] 325 mg PO DAILY 04/21/17 03/12/18 HYDROcodone/APAP 7.5-325MG [[place] 1 tab PO BID PRN 04/21/17 03/12/18 7.5-325] Previous Rx's Medication Instructions Recorded Ibuprofen 800 mg PO Q6HR PRN #20 tablet 03/12/18 Ketorolac [Toradol] 10 mg PO Q6HR #20 tab 03/12/18 Allergies Allergy/AdvReac Type Severity Reaction Status Date / Time codeine Allergy Hallucinati Verified 10/14/17 19:13 ons donepezil HCl [From Aricept] Allergy Hallucinati Verified 10/14/17 19:13 ons Penicillins Allergy Unknown Verified 10/14/17 19:13 Childhood Review of Systems ROS Statement: Those systems with pertinent positive or pertinent negative responses have been documented in the HPI. ROS Other: All systems not noted in ROS Statement are negative. Past Medical History Past Medical History: Diabetes Mellitus, Hyperlipidemia, Hypertension, Rheumatoid Arthritis (RA) Additional Past Medical History / Comment(s): brain injury, neuropathy, chronic back and shoulder pain History of Any Multi-Drug Resistant Organisms: None Reported Past Surgical History: Cholecystectomy, Hernia Repair Additional Past Surgical History / Comment(s): splenectomy, neck surg, left eye Past Psychological History: Anxiety, Bipolar, Depression, Schizophrenia Smoking Status: Current every day smoker Past Alcohol Use History: Daily Past Drug Use History: None Reported General Exam - General Exam Comments Initial Comments: This is a well-developed well-nourished awake alert oriented 3 male Limitations: no limitations General appearance: alert, anxious Head exam: Present: atraumatic, normocephalic, normal inspection Eye exam: Present: normal appearance, PERRL, EOMI. Absent: scleral icterus, conjunctival injection, periorbital swelling ENT exam: Present: normal exam, mucous membranes moist Neck exam: Present: normal inspection. Absent: tenderness, meningismus, lymphadenopathy Respiratory exam: Present: normal lung sounds bilaterally. Absent: respiratory distress, wheezes, rales, rhonchi, stridor Cardiovascular Exam: Present: regular rate, normal rhythm, normal heart sounds. Absent: systolic murmur, diastolic murmur, rubs, gallop, clicks GI/Abdominal exam: Present: soft, normal bowel sounds. Absent: distended, tenderness, guarding, rebound, rigid Rectal exam: Present: deferred Extremities exam: Present: normal inspection, full ROM, normal capillary refill. Absent: tenderness, pedal edema, joint swelling, calf tenderness Back exam: Present: normal inspection, tenderness, paraspinal tenderness. Absent: full ROM, CVA tenderness (R), CVA tenderness (L), muscle spasm, vertebral tenderness (Tenderness of the left SI joint into the left gluteus consistent with sciatica) Neurological exam: Present: alert, oriented X3, CN II-XII intact, reflexes normal. Absent: motor sensory deficit Psychiatric exam: Present: normal mood, flat affect Skin exam: Present: warm, dry, intact, normal color. Absent: rash Course Vital Signs 03/12/18 06:37 Temperature 98.0 F Pulse Rate 70 Respiratory 20 Rate Blood Pressure 124/75 O2 Sat by Pulse 96 Oximetry - Reevaluation(s) Reevaluation #1: 03/12/18 09:29 Reevaluation the patient reveals improvement in his pain Medical Decision Making - Medical Decision Making I did discuss findings with the patient he will be discharged with appropriate medication is a follow-up with his doctor return when necessary - Lab Data Result diagrams: 03/12/18 07:41 Lab Results 03/12/18 03/12/18 Range/Units 07:41 07:41 Sodium 141 (137-145) mmol/L Potassium 5.4 H (3.5-5.1) mmol/L Chloride 104 (98-107) mmol/L Carbon Dioxide 26 (22-30) mmol/L Anion Gap 11 mmol/L BUN 21 H (9-20) mg/dL Creatinine 0.75 (0.66-1.25) mg/dL Est GFR (CKD-EPI)AfAm >90 (>60 ml/min/1.73 sqM) Est GFR (CKD-EPI)NonAf >90 (>60 ml/min/1.73 sqM) Glucose 138 H (74-99) mg/dL Calcium 10.1 (8.4-10.2) mg/dL Magnesium 2.1 (1.6-2.3) mg/dL Total Bilirubin 0.4 (0.2-1.3) mg/dL AST 23 (17-59) U/L ALT 29 (21-72) U/L Alkaline Phosphatase 94 (38-126) U/L Total Protein 7.4 (6.3-8.2) g/dL Albumin 4.3 (3.5-5.0) g/dL Urine Color Light Yellow Urine Appearance Clear (Clear) Urine pH 5.0 (5.0-8.0) Ur Specific [place] 1.010 (1.001-1.035) Urine Protein Negative (Negative) Urine Glucose (UA) Negative (Negative) Urine Ketones Negative (Negative) Urine Blood Negative (Negative) Urine Nitrite Negative (Negative) Urine Bilirubin Negative (Negative) Urine Urobilinogen <2.0 (<2.0) mg/dL Ur Leukocyte Esterase Negative (Negative) - Radiology Data Radiology results: report reviewed (I did review the imaging and reports evidence of degenerative disease in the lumbar spine), image reviewed Disposition Clinical Impression: Mechanical back pain, Sciatica Disposition: HOME SELF-CARE Condition: Good Instructions: Chronic Back Pain (ED), Acute Low Back Pain (ED), Sciatica (ED), Lower Back Exercises (ED) Prescriptions: Ibuprofen 800 mg PO Q6HR PRN #20 tablet PRN Reason: Pain Ketorolac [Toradol] 10 mg PO Q6HR #20 tab Is patient prescribed a controlled substance at d/c from ED?: No Referrals: Rishi Pettit DO [Primary Care Provider] - 1-2 days
[2018-03-12 07:55] LABS: Appearance,Urine Clear (Clear); Bilirubin,Urine Negative (Negative); Blood,Urine Negative (Negative); Color,Urine Light Yellow; Glucose,Urine (UA) Negative (Negative); Ketones,Urine Negative (Negative); Leukocyte Esterase,Urine Negative (Negative); Nitrite,Urine Negative (Negative); Protein,Urine Negative (Negative); Urobilinogen,Urine <2.0 mg/dL (<2.0)
[2018-03-12 08:06] LABS: ALT 29 U/L (21-72); AST 23 U/L (17-59); Albumin 4.3 g/dL (3.5-5.0); Alkaline Phosphatase 94 U/L (38-126); Anion Gap 11 mmol/L; Blood Urea Nitrogen 21 mg/dL (9-20); Calcium 10.1 mg/dL (8.4-10.2); Carbon Dioxide 26 mmol/L (22-30); Chloride 104 mmol/L (98-107); Glucose 138 mg/dL (74-99); Magnesium 2.1 mg/dL (1.6-2.3); Potassium 5.4 mmol/L (3.5-5.1); Sodium 141 mmol/L (137-145); Total Bilirubin 0.4 mg/dL (0.2-1.3); Total Protein 7.4 g/dL (6.3-8.2)
--- NOTE | 2018-03-12 08:13 | XR ---
EXAMINATION TYPE: XR lumbosacral spine min 4V , 5 VIEWS DATE OF EXAM ORDERED: 03/12/2018 HISTORY: Pain. COMPARISON: Previous study dated 02/05/2013. FINDINGS: There has been a previous cholecystectomy as well as a ventral hernia. There is a mild levoscoliosis. This has increased from previous. There is an antegrade listhesis of L4 on L5 and retrograde listhesis of L3 on L4 and L2 on L1. There is diffuse disc space loss which is present previously. There is diffuse hypertrophic spondylosis and spondylosis deformans. The pedicles are intact. There is mild, diffuse facet arthropathy. IMPRESSION: 1. NO ACUTE OSSEOUS LESION. 2. EXTENSIVE DEGENERATIVE CHANGE. 3. POSTSURGICAL CHANGE.
[2018-03-12] MEDS ORDERED: methylPREDNISolone SOD SUCCI 125 MG/2 ML VIAL IV STA (09:12)
[2018-03-12 09:51] VITALS: BP 120/90; PULSE 61; RESP 18
== END 2018-03-12 09:53 | disposition home or self-care (01) ==
LOC: EC 06:22
DX: M54.40 Lumbago with sciatica, unspecified side (principal); I10 Essential (primary) hypertension; E78.5 Hyperlipidemia, unspecified; E11.9 Type 2 diabetes mellitus without complications; F31.9 Bipolar disorder, unspecified; F41.9 Anxiety disorder, unspecified; F17.200 Nicotine dependence, unspecified, uncomplicated; Z79.82 Long term (current) use of aspirin; Z79.84 Long term (current) use of oral hypoglycemic drugs; Z79.899 Other long term (current) drug therapy; Z88.0 Allergy status to penicillin; Z88.5 Allergy status to narcotic agent; Z88.8 Allergy status to other drugs, medicaments and biological substances
CPT/HCPCS: 36415; 80053; 83735; 81003; 72110; 99283; J2360; J2930; J1885

== ENCOUNTER 2018-03-20 17:30 | Emergency (ER) | payer MEDICARE, OTHER ==
[2018-03-20] MEDS ORDERED: KETOROLAC 30 MG/ML 1 ML VIAL IM STA (18:08)
--- NOTE | 2018-03-20 18:11 | ED ---
General Adult HPI - General Chief complaint: Extremity Problem,Nontraumatic Stated complaint: Possible DVT, Sent by Time Seen by Provider: 03/20/18 17:59 Source: patient, RN notes reviewed, old records reviewed Mode of arrival: wheelchair Limitations: no limitations - History of Present Illness Initial comments: 62-year-old male presented for evaluation of left leg swelling. Patient was sent in by his primary care physician with request for ultrasound DVT of the left lower extremity. Symptoms have been present for approximately one week. He does report some anterior knee pain as well states he has chronic back pain and has been favoring this leg. No specific injury or trauma. No fever or chills. No pain in the foot - Related Data Home Medications Medication Instructions Recorded Confirmed Amitriptyline HCl [Elavil] 75 mg PO HS 07/25/14 03/20/18 Aspirin EC [Ecotrin] 81 mg PO DAILY 07/25/14 03/20/18 Atorvastatin [Lipitor] 10 mg PO DAILY 07/25/14 03/20/18 Furosemide [Lasix] 20 mg PO DAILY 07/25/14 03/20/18 Lisinopril [Zestril] 5 mg PO DAILY 07/25/14 03/20/18 Metoprolol Tartrate [Lopressor] 25 mg PO BID 07/25/14 03/20/18 Modafinil [Provigil] 100 mg PO DAILY 07/25/14 03/20/18 Multivitamin [Men's Multi-Vitamin] 1 tab PO DAILY 07/25/14 03/20/18 Potassium Chloride [K-Tab ER] 10 meq PO DAILY 07/25/14 03/20/18 Sertraline HCl [Zoloft] 100 mg PO DAILY 07/25/14 03/20/18 lamoTRIgine [LaMICtal] 150 mg PO BID 07/25/14 03/20/18 metFORMIN HCL [Glucophage] 500 mg PO DAILY 07/25/14 03/20/18 Fish Oil/Dha/Epa [Fish Oil 1,200 1 cap PO DAILY 03/06/17 03/20/18 mg Fish Oil] Gabapentin 800 mg PO BID 03/06/17 03/20/18 Ferrous Sulfate [Iron] 325 mg PO DAILY 04/21/17 03/20/18 HYDROcodone/APAP 7.5-325MG [[place] 1 tab PO BID PRN 04/21/17 03/20/18 7.5-325] Previous Rx's Medication Instructions Recorded Ibuprofen 800 mg PO Q6HR PRN #20 tablet 03/12/18 Allergies Allergy/AdvReac Type Severity Reaction Status Date / Time codeine Allergy Hallucinati Verified 03/20/18 18:34 ons donepezil HCl [From Aricept] Allergy Hallucinati Verified 03/20/18 18:34 ons Penicillins Allergy Unknown Verified 03/20/18 18:34 Childhood Review of Systems ROS Statement: Those systems with pertinent positive or pertinent negative responses have been documented in the HPI. ROS Other: All systems not noted in ROS Statement are negative. Past Medical History Past Medical History: Diabetes Mellitus, Hyperlipidemia, Hypertension, Rheumatoid Arthritis (RA) Additional Past Medical History / Comment(s): brain injury, neuropathy, chronic back and shoulder pain History of Any Multi-Drug Resistant Organisms: None Reported Past Surgical History: Cholecystectomy, Hernia Repair Additional Past Surgical History / Comment(s): splenectomy, neck surg, left eye Past Psychological History: Anxiety, Bipolar, Depression, Schizophrenia Smoking Status: Current every day smoker Past Alcohol Use History: Daily Past Drug Use History: None Reported General Exam Limitations: no limitations General appearance: alert, in no apparent distress Head exam: Present: atraumatic, normocephalic Eye exam: Present: normal appearance, PERRL Neck exam: Present: normal inspection. Absent: tenderness, meningismus Respiratory exam: Present: normal lung sounds bilaterally. Absent: respiratory distress, wheezes, rales Cardiovascular Exam: Present: regular rate, normal rhythm GI/Abdominal exam: Present: soft. Absent: distended, tenderness, guarding Extremities exam: Present: pedal edema, calf tenderness, other (Left leg 1+ Pitting Edema, distal pulses 2+. No erythema. Normal range of motion at the hip, knee, and ankle on the left.) Neurological exam: Present: alert, oriented X3, CN II-XII intact. Absent: motor sensory deficit Psychiatric exam: Present: normal affect, normal mood Skin exam: Present: warm, dry. Absent: cyanosis, diaphoretic Course Vital Signs 03/20/18 03/20/18 17:31 18:55 Temperature 98.2 F 98.1 F Pulse Rate 75 71 Respiratory 18 16 Rate Blood Pressure 161/81 144/104 O2 Sat by Pulse 96 96 Oximetry Medical Decision Making - Medical Decision Making 62-year-old male presenting with left lower extremity swelling, concern for DVT. Patient's primary care sent him for study of the left leg. Ultrasound is obtained, negative for acute DVT. X-rays also obtained as patient had some anterior knee tenderness, this is negative for acute bony abnormality. Patient will continue anti-inflammatories at home. Follow-up with primary care physician. Disposition Clinical Impression: Osteoarthritis, Dependent edema Disposition: HOME SELF-CARE Condition: Good Instructions: Osteoarthritis (ED) Is patient prescribed a controlled substance at d/c from ED?: No Referrals: Rishi Pettit DO [Primary Care Provider] - 1-2 days Time of Disposition: 20:20
[2018-03-20 18:58] VITALS: TEMP 98.1
--- NOTE | 2018-03-20 20:09 | XR ---
PROCEDURE: XR knee complete LT 3V DATE AND TIME: 03/20/2018 6:37 PM CLINICAL INDICATION: [facility] Pain TECHNIQUE: Department protocol. 3V COMPARISON: 02/05/2013 FINDINGS: There is no fracture or malalignment. The soft tissues are unremarkable. IMPRESSION: NO ACUTE PROCESS.
--- NOTE | 2018-03-20 20:12 | US ---
EXAMINATION TYPE: US venous doppler duplex LE LT DATE OF EXAM: 03/20/2018 7:11 PM COMPARISON: NONE CLINICAL HISTORY: Pain. Pain. SIDE PERFORMED: Left TECHNIQUE: The lower extremity deep venous system is examined utilizing real time linear array sonog gato with graded compression, doppler sonography and color-flow sonography. VESSELS IMAGED: External Iliac Vein (EIV) Common Femoral Vein Deep Femoral Vein Greater Saphenous Vein * Femoral Vein Popliteal Vein Small Saphenous Vein * Proximal Calf Veins (* superficial vessels) FINDINGS: Grayscale, color doppler, spectral doppler imaging performed of the deep veins of the lower extremities. There is normal flow, compressibility, vascular waveforms. IMPRESSION: NEGATIVE FOR DVT, LEFT LOWER EXTREMITY.
[2018-03-20 21:00] VITALS: BP 142/89; PULSE 75; RESP 18
== END 2018-03-20 21:00 | disposition home or self-care (01) ==
LOC: EC 17:30
DX: M19.90 Unspecified osteoarthritis, unspecified site (principal); R60.0 Localized edema; M25.569 Pain in unspecified knee; G89.29 Other chronic pain; M54.9 Dorsalgia, unspecified; E78.5 Hyperlipidemia, unspecified; I10 Essential (primary) hypertension; E11.40 Type 2 diabetes mellitus with diabetic neuropathy, unspecified; F31.9 Bipolar disorder, unspecified; F41.9 Anxiety disorder, unspecified; F17.200 Nicotine dependence, unspecified, uncomplicated; Z88.0 Allergy status to penicillin; Z88.5 Allergy status to narcotic agent; Z88.8 Allergy status to other drugs, medicaments and biological substances; Z79.82 Long term (current) use of aspirin; Z79.84 Long term (current) use of oral hypoglycemic drugs; Z79.899 Other long term (current) drug therapy; Z98.890 Other specified postprocedural states
CPT/HCPCS: 73562; 93971; 99284; 96372; J1885

== ENCOUNTER → 2018-06-28 | Outpatient (CLI) | payer MEDICARE ==
[2018-06-28 12:39] LABS: Basophils # (A) 0.1 k/uL (0-0.2); Basophils % (A) 1 %; Eosinophils # (A) 0.4 k/uL (0-0.7); Eosinophils % (A) 5 %; HCT 45.1 % (39.0-53.0); HGB 14.9 gm/dL (13.0-17.5); Lymphocytes # (A) 3.3 k/uL (1.0-4.8); Lymphocytes % (A) 37 %; MCH 32.3 pg (25.0-35.0); MCHC 33.1 g/dL (31.0-37.0); MCV 97.6 fL (80.0-100.0); Mean Platelet Volume 7.4; Monocytes # (A) 0.6 k/uL (0-1.0); Monocytes % (A) 6 %; Neutrophils # (A) 4.3 k/uL (1.3-7.7); Neutrophils % (A) 49 %; Platelet Count 313 k/uL (150-450); RBC 4.62 m/uL (4.30-5.90); RDW 13.6 % (11.5-15.5); WBC 8.9 k/uL (3.8-10.6)
[2018-06-28 19:48] LABS: Albumin/Globulin Ratio 1.9 (1.60-3.17); Anion Gap 4.4 mmol/L (4.00-12.00); Calcium 9.4 mg/dL (8.7-10.3); Carbon Dioxide 27.6 mmol/L (21.6-31.8); Globulin 2.1 g/dL (1.6-3.3); LDL Cholesterol,Calculated 52.2 mg/dL (0.0-131.0); Potassium 4.7 mmol/L (3.5-5.5); Total Bilirubin 0.5 mg/dL (0.2-1.2); Total Protein 6.1 g/dL (6.2-8.2); VLDL Calculation 30.8 mg/dL (5.00-40.00)
== END | disposition home or self-care (01) ==
LOC: LABWHC1 11:13
PROVIDERS: ATTEND Urology
DX: E78.2 Mixed hyperlipidemia (principal); E83.52 Hypercalcemia; E11.42 Type 2 diabetes mellitus with diabetic polyneuropathy; I10 Essential (primary) hypertension; Z12.5 Encounter for screening for malignant neoplasm of prostate; R97.20 Elevated prostate specific antigen [PSA]
CPT/HCPCS: 36415; 80053; 80061; 82550; 84153; 84443; 85025

== ENCOUNTER 2018-11-26 06:37 | Emergency (ER) | payer MEDICARE ==
[2018-11-26 06:47] VITALS: BP 170/84; PULSE 79; RESP 17; TEMP 97.4
[2018-11-26] MEDS ORDERED: HYDROcodone/APAP 10-325MG 1 EACH TAB PO ONE (07:03)
[2018-11-26] MEDS ORDERED: KETOROLAC 60 MG/2 ML VIAL IM STA (07:03)
--- NOTE | 2018-11-26 07:07 | ED ---
Upper Extremity HPI - General Chief Complaint: Extremity Injury, Upper Stated Complaint: Lt Arm numbness Time Seen by Provider: 11/26/18 06:55 Source: patient, RN notes reviewed Mode of arrival: ambulatory Limitations: no limitations - History of Present Illness Initial Comments: This a 63-year-old male presents emergency Department chief complaint of left arm pain and numbness. This is a chronic issue in which she's had cubital tunnel surgery in the past. Patient states he never alleviated symptoms. He's been having worsening symptoms over the last week. Patient currently takes ibuprofen, Mackay, gabapentin. Patient states that he cannot tolerate the pain today. He has no associated weakness. Patient denies any trauma. Denies any neck pain but he does admit that he's had prior neck surgery. Denies chest pain or shortness of breath. Patient states that he's been keeping his elbow bent in a flexed 90 angle. Patient has not contacted his PCP regarding the symptoms. Patient also complains of intermittent symptoms in his right arm symptoms are all pertaining to the fifth digit. Extremities - Related Data Home Medications Medication Instructions Recorded Confirmed Amitriptyline HCl [Elavil] 75 mg PO HS 07/25/14 03/20/18 Aspirin EC [Ecotrin] 81 mg PO DAILY 07/25/14 03/20/18 Atorvastatin [Lipitor] 10 mg PO DAILY 07/25/14 03/20/18 Furosemide [Lasix] 20 mg PO DAILY 07/25/14 03/20/18 Lisinopril [Zestril] 5 mg PO DAILY 07/25/14 03/20/18 Metoprolol Tartrate [Lopressor] 25 mg PO BID 07/25/14 03/20/18 Modafinil [Provigil] 100 mg PO DAILY 07/25/14 03/20/18 Multivitamin [Men's Multi-Vitamin] 1 tab PO DAILY 07/25/14 03/20/18 Potassium Chloride [K-Tab ER] 10 meq PO DAILY 07/25/14 03/20/18 Sertraline HCl [Zoloft] 100 mg PO DAILY 07/25/14 03/20/18 lamoTRIgine [LaMICtal] 150 mg PO BID 07/25/14 03/20/18 metFORMIN HCL [Glucophage] 500 mg PO DAILY 07/25/14 03/20/18 Fish Oil/Dha/Epa [Fish Oil 1,200 1 cap PO DAILY 03/06/17 03/20/18 mg Fish Oil] Gabapentin 800 mg PO BID 03/06/17 03/20/18 Ferrous Sulfate [Iron] 325 mg PO DAILY 04/21/17 03/20/18 HYDROcodone/APAP 7.5-325MG [[place] 1 tab PO BID PRN 04/21/17 03/20/18 7.5-325] Previous Rx's Medication Instructions Recorded Ibuprofen 800 mg PO Q6HR PRN #20 tablet 03/12/18 Allergies Allergy/AdvReac Type Severity Reaction Status Date / Time codeine Allergy Hallucinati Verified 03/20/18 18:34 ons donepezil HCl [From Aricept] Allergy Hallucinati Verified 03/20/18 18:34 ons Penicillins Allergy Unknown Verified 03/20/18 18:34 Childhood Review of Systems ROS Statement: Those systems with pertinent positive or pertinent negative responses have been documented in the HPI. ROS Other: All systems not noted in ROS Statement are negative. Past Medical History Past Medical History: Diabetes Mellitus, Hyperlipidemia, Hypertension, Rheumatoid Arthritis (RA) Additional Past Medical History / Comment(s): brain injury, neuropathy, chronic back and shoulder pain History of Any Multi-Drug Resistant Organisms: None Reported Past Surgical History: Cholecystectomy, Hernia Repair Additional Past Surgical History / Comment(s): splenectomy, neck surg, left eye Past Psychological History: Anxiety, Bipolar, Depression, Schizophrenia Smoking Status: Current every day smoker Past Alcohol Use History: Daily Past Drug Use History: None Reported General Exam Limitations: no limitations General appearance: alert, in no apparent distress Head exam: Present: atraumatic, normocephalic, normal inspection ENT exam: Present: mucous membranes moist Neck exam: Present: normal inspection, full ROM. Absent: tenderness, meningismus, lymphadenopathy Respiratory exam: Present: normal lung sounds bilaterally. Absent: respiratory distress, wheezes, rales, rhonchi, stridor Cardiovascular Exam: Present: regular rate, normal rhythm, normal heart sounds. Absent: systolic murmur, diastolic murmur, rubs, gallop, clicks Extremities exam: Present: other (Full range motion of bilateral upper extremities, Reflexes and 2 seconds radial pulses equal bilaterally +5/5 no erythema no swelling) Neurological exam: Present: alert, oriented X3, CN II-XII intact, reflexes normal. Absent: motor sensory deficit Course Vital Signs 11/26/18 06:43 Temperature 97.4 F L Pulse Rate 79 Respiratory 17 Rate Blood Pressure 170/84 O2 Sat by Pulse 95 Oximetry Medical Decision Making - Medical Decision Making 63-year-old male presented for left and right arm/hand numbness and pain. This is related to acute tunnel syndrome. Patient we given a shot of Toradol, given Mackay he is R Young gabapentin and Mackay at home. He is advised follow-up with Dr. Suh return parameters were discussed. Disposition Clinical Impression: Cubital tunnel syndrome Disposition: HOME SELF-CARE Condition: Stable Instructions (If sedation given, give patient instructions): Cubital Tunnel Syndrome (ED) Additional Instructions: Please return to the Emergency Department if symptoms worsen or any other concerns. Is patient prescribed a controlled substance at d/c from ED?: No Referrals: Eva Rodríguez, JAZZY [Primary Care Provider] - 1-2 days Stevie Andrea DO [Medical Doctor] - 1-2 days Time of Disposition: 07:06
== END 2018-11-26 07:28 | disposition home or self-care (01) ==
LOC: EC 06:37
DX: G56.23 Lesion of ulnar nerve, bilateral upper limbs (principal); E78.5 Hyperlipidemia, unspecified; I10 Essential (primary) hypertension; E11.40 Type 2 diabetes mellitus with diabetic neuropathy, unspecified; F41.9 Anxiety disorder, unspecified; F31.9 Bipolar disorder, unspecified; F20.9 Schizophrenia, unspecified; F17.200 Nicotine dependence, unspecified, uncomplicated; Z79.84 Long term (current) use of oral hypoglycemic drugs; Z79.82 Long term (current) use of aspirin; Z79.899 Other long term (current) drug therapy; Z88.0 Allergy status to penicillin; Z88.5 Allergy status to narcotic agent; Z88.8 Allergy status to other drugs, medicaments and biological substances
CPT/HCPCS: 99283; 96372; J1885

== ENCOUNTER → 2018-12-20 | Outpatient (CLI) | payer OTHER ==
--- NOTE | 2018-12-20 12:15 | MR ---
EXAMINATION TYPE: MR cervical spine wo/w con DATE OF EXAM: 12/20/2018 COMPARISON: Prior cervical spine MRI 04/30/2016 HISTORY: radiculopathy TECHNIQUE: Multiplanar, multisequence images of the cervical spine were acquired utilizing 10 mL intravenous Jose avist gadolinium contrast. Diffusion weighted imaging was performed. C2-C3: There is some right-sided foraminal encroachment similar to prior exam, uncovertebral joint hy pertrophy is present. No evident disc herniation or significant spinal stenosis. C3-C4: Similar findings are present. There is foraminal encroachment bilaterally due to uncovertebral joint hypertrophy and facet arthropathy, there is a mild anterolisthesis grade 1 C3-4. Posterior bro ad-based disc bulge may contact the anterior cervical cord, there is mild to moderate central stenosi s. C4-C5: Bilateral foraminal encroachment is present right greater than left. There is uncovertebral jatin int hypertrophy and facet arthropathy change. Mild to moderate central stenosis, question some mild d ecreased AP distance of the cervical cord. C5-C6: Broad-based posterior disc bulge contacts the anterior cervical cord, there is moderate to sev ere central canal stenosis which may progressed slightly in the interval. Bilateral foraminal encroac hment is present. C6-C7: Broad-based posterior disc bulge, posterior extension endplate disc complex causes some mild a nterior mass effect on the thecal sac, there is mild central stenosis. Bilateral foraminal encroachme nt is present due to uncovertebral joint hypertrophy facet arthropathy. C7-T1: Posterior broad-based disc bulge causes mild anterior mass effect on the thecal sac. Bilateral foraminal encroachment is present. Cervical segments are intact. Patient is status post anterior cervical fusion and discectomy at C4-5. There is multilevel loss of disc height and signal at intervertebral levels, endplate discogenic mar row signal change with spondylosis. There is stable alignment. Cervical spinal cord is of normal sig nal. Craniovertebral junction relationships are within normal limits. No abnormal enhancement follo wing contrast administration. IMPRESSION: Multilevel spinal stenosis, degenerative disc disease, foraminal encroachment, postop changes.
== END | disposition home or self-care (01) ==
LOC: RADMRIMAIN 07:17
PROVIDERS: ATTEND Physical Medicine & Rehabilitation
DX: M48.02 Spinal stenosis, cervical region (principal); M50.10 Cervical disc disorder with radiculopathy, unspecified cervical region; Z98.890 Other specified postprocedural states
CPT/HCPCS: 72156; A9585

== ENCOUNTER → 2018-12-21 | Outpatient (CLI) | payer MEDICARE, OTHER ==
[2018-12-21 12:34] LABS: Basophils # (A) 0.1 k/uL (0-0.2); Basophils % (A) 1 %; Eosinophils # (A) 0.5 k/uL (0-0.7); Eosinophils % (A) 4 %; HCT 46.8 % (39.0-53.0); HGB 15.2 gm/dL (13.0-17.5); Lymphocytes # (A) 4.9 k/uL (1.0-4.8); Lymphocytes % (A) 34 %; MCH 32.2 pg (25.0-35.0); MCHC 32.6 g/dL (31.0-37.0); MCV 98.8 fL (80.0-100.0); Mean Platelet Volume 7.6; Monocytes # (A) 0.9 k/uL (0-1.0); Monocytes % (A) 6 %; Neutrophils # (A) 7.8 k/uL (1.3-7.7); Neutrophils % (A) 54 %; Platelet Count 299 k/uL (150-450); RBC 4.74 m/uL (4.30-5.90); RDW 13.5 % (11.5-15.5); WBC 14.7 k/uL (3.8-10.6)
[2018-12-21 19:17] LABS: African American GFR (CKD) 111.7 (60.0-200.0); Albumin 4.6 g/dL (3.80-4.90); Albumin/Globulin Ratio 2.19 (1.60-3.17); Globulin 2.1 g/dL (1.6-3.3); LDL Cholesterol,Calculated 67.4 mg/dL (0.0-131.0); Potassium 5.2 mmol/L (3.5-5.5); Total Bilirubin 0.4 mg/dL (0.2-1.2); Total Protein 6.7 g/dL (6.2-8.2); VLDL Calculation 31.6 mg/dL (5.00-40.00)
== END | disposition home or self-care (01) ==
LOC: LABWHC1 12:04
PROVIDERS: ATTEND Physician Assistant Medical
DX: I10 Essential (primary) hypertension (principal); E11.42 Type 2 diabetes mellitus with diabetic polyneuropathy; E83.52 Hypercalcemia; E78.2 Mixed hyperlipidemia; Z12.5 Encounter for screening for malignant neoplasm of prostate
CPT/HCPCS: 36415; 80053; 80061; 82550; 84443; 85025

== ENCOUNTER 2019-01-13 16:59 | Emergency (ER) | payer MEDICARE, OTHER ==
[2019-01-13 17:09] VITALS: BP 124/72; PULSE 75; RESP 18; TEMP 97.6
--- NOTE | 2019-01-13 18:07 | XR ---
EXAMINATION TYPE: XR foot complete LT DATE OF EXAM: 01/13/2019 COMPARISON: NONE HISTORY: Possible foreign body TECHNIQUE: 3 views FINDINGS: There is narrowing and spurring at the first tarsometatarsal joint. I see no fracture nor d islocation. There is plantar calcaneal spurring. There are no erosions. IMPRESSION: No evidence of a foreign body. 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
[2019-01-13] MEDS ORDERED: LIDOCAINE 1% INJ 10MG/ML (20 ML MDV) SQ ONE (18:13)
--- NOTE | 2019-01-13 18:14 | ED ---
Skin/Abscess/FB HPI - General Chief complaint: Skin/Abscess/Foreign Body Stated complaint: Object in Left Foot Time Seen by Provider: 01/13/19 17:36 Source: patient, RN notes reviewed Mode of arrival: wheelchair Limitations: no limitations - History of Present Illness Initial comments: This a 63-year-old male presents emergency Department chief complaint foreign body in his left foot. Patient states that he stepped on something outside and he felt a poke. Patient is unsure what this was. Patient states is up-to-date on his tetanus. Denies any paresthesias. Patient states he has done at his foot was unable to get anything out. - Related Data Home Medications Medication Instructions Recorded Confirmed Amitriptyline HCl [Elavil] 75 mg PO HS 07/25/14 03/20/18 Aspirin EC [Ecotrin] 81 mg PO DAILY 07/25/14 03/20/18 Atorvastatin [Lipitor] 10 mg PO DAILY 07/25/14 03/20/18 Furosemide [Lasix] 20 mg PO DAILY 07/25/14 03/20/18 Lisinopril [Zestril] 5 mg PO DAILY 07/25/14 03/20/18 Metoprolol Tartrate [Lopressor] 25 mg PO BID 07/25/14 03/20/18 Modafinil [Provigil] 100 mg PO DAILY 07/25/14 03/20/18 Multivitamin [Men's Multi-Vitamin] 1 tab PO DAILY 07/25/14 03/20/18 Potassium Chloride [K-Tab ER] 10 meq PO DAILY 07/25/14 03/20/18 Sertraline HCl [Zoloft] 100 mg PO DAILY 07/25/14 03/20/18 lamoTRIgine [LaMICtal] 150 mg PO BID 07/25/14 03/20/18 metFORMIN HCL [Glucophage] 500 mg PO DAILY 07/25/14 03/20/18 Fish Oil/Dha/Epa [Fish Oil 1,200 1 cap PO DAILY 03/06/17 03/20/18 mg Fish Oil] Gabapentin 800 mg PO BID 03/06/17 03/20/18 Ferrous Sulfate [Iron] 325 mg PO DAILY 04/21/17 03/20/18 HYDROcodone/APAP 7.5-325MG [Standard 1 tab PO BID PRN 04/21/17 03/20/18 7.5-325] Previous Rx's Medication Instructions Recorded Ibuprofen 800 mg PO Q6HR PRN #20 tablet 03/12/18 Cephalexin [Keflex] 500 mg PO Q6HR #28 cap 01/13/19 Allergies Allergy/AdvReac Type Severity Reaction Status Date / Time codeine Allergy Hallucinati Verified 03/20/18 18:34 ons donepezil HCl [From Aricept] Allergy Hallucinati Verified 03/20/18 18:34 ons Penicillins Allergy Unknown Verified 03/20/18 18:34 Childhood Review of Systems ROS Statement: Those systems with pertinent positive or pertinent negative responses have been documented in the HPI. ROS Other: All systems not noted in ROS Statement are negative. Past Medical History Past Medical History: Diabetes Mellitus, Hyperlipidemia, Hypertension, Rheumatoid Arthritis (RA) Additional Past Medical History / Comment(s): brain injury, neuropathy, chronic back and shoulder pain History of Any Multi-Drug Resistant Organisms: None Reported Past Surgical History: Cholecystectomy, Hernia Repair Additional Past Surgical History / Comment(s): splenectomy, neck surg, left eye Past Psychological History: Anxiety, Bipolar, Depression, Schizophrenia Smoking Status: Current every day smoker Past Alcohol Use History: Daily Past Drug Use History: None Reported General Exam Limitations: no limitations General appearance: alert, in no apparent distress Head exam: Present: atraumatic, normocephalic, normal inspection Respiratory exam: Present: normal lung sounds bilaterally. Absent: respiratory distress, wheezes, rales, rhonchi, stridor Cardiovascular Exam: Present: regular rate, normal rhythm, normal heart sounds. Absent: systolic murmur, diastolic murmur, rubs, gallop, clicks Extremities exam: Present: other (Left foot there is small opening in the callused skin there is no obvious foreign body no redness no drainage.) Skin exam: Present: warm, dry, intact, normal color. Absent: rash Course Vital Signs 01/13/19 17:07 Temperature 97.6 F Pulse Rate 75 Respiratory 18 Rate Blood Pressure 124/72 O2 Sat by Pulse 99 Oximetry Procedures - Procedures Initial comment: Procedure foreign body removal soft tissue: There is cleaned with alcohol wipe, 1% without epinephrine was used to anesthetize area 5 mL I did use a #10 scalpel to remove callous, skin is able to identify a glass piece/foreign body and was removed. Medical Decision Making - Medical Decision Making 63-year-old male presented for foreign body in his left foot. X-rays were negative. I did do an procedure and was able to remove a small piece of glass. Patient will be discharged on antibiotics there is cleaned and dressed. Disposition Clinical Impression: Foreign body in foot, left Disposition: HOME SELF-CARE Condition: Stable Instructions (If sedation given, give patient instructions): Soft Tissue Foreign Body (ED) Additional Instructions: Please return to the Emergency Department if symptoms worsen or any other concerns. Prescriptions: Cephalexin [Keflex] 500 mg PO Q6HR #28 cap Is patient prescribed a controlled substance at d/c from ED?: No Referrals: Rishi Pettit DO [Primary Care Provider] - 1-2 days Time of Disposition: 18:44
== END 2019-01-13 19:16 | disposition home or self-care (01) ==
LOC: EC 16:59
DX: S90.852A Superficial foreign body, left foot, initial encounter (principal); E11.40 Type 2 diabetes mellitus with diabetic neuropathy, unspecified; E78.5 Hyperlipidemia, unspecified; I10 Essential (primary) hypertension; F41.9 Anxiety disorder, unspecified; F32.9 Major depressive disorder, single episode, unspecified; F20.9 Schizophrenia, unspecified; F17.200 Nicotine dependence, unspecified, uncomplicated; Z79.82 Long term (current) use of aspirin; Z79.84 Long term (current) use of oral hypoglycemic drugs; Z79.899 Other long term (current) drug therapy; Z88.5 Allergy status to narcotic agent; Z88.8 Allergy status to other drugs, medicaments and biological substances; Z88.0 Allergy status to penicillin; W45.8XXA Other foreign body or object entering through skin, initial encounter; Y92.009 Unspecified place in unspecified non-institutional (private) residence as the place of occurrence of the external cause
CPT/HCPCS: 73630; 99283; 10120; J2001

== ENCOUNTER 2019-01-18 07:18 | Day surgery (SDC) | payer MEDICARE, OTHER ==
[2019-01-15 13:17] VITALS: BMI 31.8
[~2019-01-18 07:18] MED LIST: LACTATED RINGERS 1,000 ML IV SCH; LIDOCAINE 1% 20 ML VIAL (10MG/ML) FOR IV START INTRADERMA PRN
[2019-01-18] MEDS ORDERED: LACTATED RINGERS 1,000 ML IV ONE (07:21)
[2019-01-18 07:38] VITALS: TEMP 97.4
[2019-01-18 07:39] LABS: Glucose,Whole Blood 134 mg/dL (75-99)
[2019-01-18] MEDS ORDERED: PROPOFOL 10 MG/ML 20 ML VIAL IV ONE (07:43)
[2019-01-18 08:46] VITALS: RESP 16
--- NOTE | 2019-01-18 09:00 | P.PCN ---
Date of Procedure: 01/18/19 Description of Procedure: BRIEF HISTORY: Patient is a 63-year-old pleasant male scheduled for an elective colonoscopy as a part of screening for malignant neoplasm colon. Patient has reported history of colonoscopy but is unsure what the indication was and what the findings were. Denies any change in bowel habits, blood per rectum, constipation or diarrhea. Denies any family history of colon cancer. PROCEDURE PERFORMED: Colonoscopy. PREOPERATIVE DIAGNOSIS: Screening for malignant neoplasm of the colon. ESTIMATED BLOOD LOSS: Minimal. IV sedation per Anesthesia. PROCEDURE: After informed consent was obtained, the patient, was brought into the endoscopy unit. IV sedation was administered by Anesthesia under continuous monitoring. Digital rectal examination was normal. Initially the Olympus CF-190 flexible video colonoscope was then inserted in the rectum, gradually advanced into the cecum without any difficulty. Careful examination was performed as the scope was gradually being withdrawn. Ileocecal valve and the appendiceal orifice were visualized and appeared normal. Prep was excellent. Mucosa of the cecum, ascending colon, transverse colon, descending colon, sigmoid colon, and rectum appeared normal. Retroflexion was performed in the rectum and no lesions were se en, with mild internal hemorrhoids noted. The patient tolerated the procedure well. IMPRESSION: Normal-appearing colon from rectum to cecum. Mild internal hemorrhoids. RECOMMENDATIONS: Findings of this examination were discussed with the patient and his friend. Okay to resume diet and medications. Repeat colonoscopy in 10 years, unless polyps were previously noted in which case colonoscopy should be in 5 years.
[2019-01-18 09:29] VITALS: BP 158/87; PULSE 67
== END 2019-01-18 10:13 | disposition home or self-care (01) ==
LOC: ORWHC2ENDO 07:18
PROVIDERS: ATTEND Internal Medicine
DX: Z12.11 Encounter for screening for malignant neoplasm of colon (principal); K64.8 Other hemorrhoids; Z90.49 Acquired absence of other specified parts of digestive tract; E78.5 Hyperlipidemia, unspecified; I10 Essential (primary) hypertension; G47.33 Obstructive sleep apnea (adult) (pediatric); F17.200 Nicotine dependence, unspecified, uncomplicated; F41.9 Anxiety disorder, unspecified; F32.9 Major depressive disorder, single episode, unspecified; G43.909 Migraine, unspecified, not intractable, without status migrainosus; G62.9 Polyneuropathy, unspecified; M06.9 Rheumatoid arthritis, unspecified; Z79.84 Long term (current) use of oral hypoglycemic drugs; Z79.82 Long term (current) use of aspirin; Z79.899 Other long term (current) drug therapy; Z88.5 Allergy status to narcotic agent; Z88.0 Allergy status to penicillin; Z88.2 Allergy status to sulfonamides; Z88.8 Allergy status to other drugs, medicaments and biological substances; Z80.0 Family history of malignant neoplasm of digestive organs
CPT/HCPCS: J2704; G0121

== ENCOUNTER → 2019-03-12 | Outpatient (CLI) | payer MEDICARE, OTHER ==
[2019-03-13 00:38] LABS: African American GFR (CKD) 111.7 (60.0-200.0); Non-African American GFR(CKD) 96.4 (60.0-200.0); Potassium 4.9 mmol/L (3.5-5.5)
== END | disposition home or self-care (01) ==
LOC: LABWHC1 14:43
PROVIDERS: ATTEND Physician Assistant Medical
DX: R25.2 Cramp and spasm (principal)
CPT/HCPCS: 36415; 82565; 83735; 84132; 84520

== ENCOUNTER → 2019-06-22 | Outpatient (CLI) | payer MEDICARE ==
[2019-06-22 17:04] LABS: Basophils # (A) 0.2 k/uL (0-0.2); Basophils % (A) 2 %; Eosinophils # (A) 0.5 k/uL (0-0.7); Eosinophils % (A) 4 %; HCT 45.5 % (39.0-53.0); HGB 14.8 gm/dL (13.0-17.5); Lymphocytes # (A) 4.1 k/uL (1.0-4.8); Lymphocytes % (A) 33 %; MCH 32.1 pg (25.0-35.0); MCHC 32.6 g/dL (31.0-37.0); MCV 98.5 fL (80.0-100.0); Mean Platelet Volume 8.3; Monocytes # (A) 0.7 k/uL (0-1.0); Monocytes % (A) 5 %; Neutrophils # (A) 6.6 k/uL (1.3-7.7); Neutrophils % (A) 54 %; Platelet Count 301 k/uL (150-450); RBC 4.62 m/uL (4.30-5.90); RDW 13.3 % (11.5-15.5); WBC 12.4 k/uL (3.8-10.6)
[2019-06-22 23:30] LABS: African American GFR (CKD) 93.1 (60.0-200.0); Albumin 4.4 g/dL (3.80-4.90); Albumin/Globulin Ratio 2.32 (1.60-3.17); Anion Gap 3.7 mmol/L (4.00-12.00); Calcium 9.6 mg/dL (8.7-10.3); Carbon Dioxide 32.3 mmol/L (21.6-31.8); Chol/HDL Ratio 4.47; Globulin 1.9 g/dL (1.6-3.3); LDL Cholesterol,Calculated 45.2 mg/dL (0.0-131.0); Non-African American GFR(CKD) 80.3 (60.0-200.0); Potassium 4.3 mmol/L (3.5-5.5); Total Bilirubin 0.5 mg/dL (0.2-1.2); Total Protein 6.3 g/dL (6.2-8.2); VLDL Calculation 65.8 mg/dL (5.00-40.00)
== END | disposition home or self-care (01) ==
LOC: LABWHC1 16:41
PROVIDERS: ATTEND Physician Assistant Medical
DX: E78.2 Mixed hyperlipidemia (principal); E11.42 Type 2 diabetes mellitus with diabetic polyneuropathy; I10 Essential (primary) hypertension; Z12.5 Encounter for screening for malignant neoplasm of prostate
CPT/HCPCS: 36415; 80053; 80061; 82550; 84443; 85025

== ENCOUNTER 2019-10-16 17:55 | Inpatient (IN) | payer MEDICARE ==
[2019-10-16] MEDS ORDERED: SODIUM CHLORIDE 0.9% 1,000 ML IV STA (18:12)
--- NOTE | 2019-10-16 18:15 | ED ---
General Adult HPI - General Chief complaint: Dizziness Stated complaint: Dizziness, Headache Time Seen by Provider: 10/16/19 18:02 Source: patient, EMS, RN notes reviewed Mode of arrival: EMS Limitations: no limitations - History of Present Illness Initial comments: Patient is a pleasant 64-year-old male presenting to the emergency department with dizziness. Patient states he has had mild symptoms for a couple of weeks, worse the past couple of days. Patient feels somewhat weak all over. Patient is having difficulty with walking now. Patient thinks he has been eating and drinking close to normal. No vomiting or diarrhea. Patient has been having some headaches that have been moderate to severe. Headaches are not sudden onset and have been gradual onset over hours and waxing and waning. - Related Data Home Medications Medication Instructions Recorded Confirmed Amitriptyline HCl [Elavil] 75 mg PO HS 07/25/14 01/18/19 Aspirin EC [Ecotrin] 81 mg PO DAILY 07/25/14 01/18/19 Atorvastatin [Lipitor] 10 mg PO DAILY 07/25/14 01/18/19 Furosemide [Lasix] 20 mg PO DAILY 07/25/14 01/18/19 Lisinopril [Zestril] 5 mg PO DAILY 07/25/14 01/18/19 Metoprolol Tartrate [Lopressor] 25 mg PO BID 07/25/14 01/18/19 Modafinil [Provigil] 100 mg PO DAILY 07/25/14 01/18/19 Multivitamin [Men's Multi-Vitamin] 1 tab PO DAILY 07/25/14 01/18/19 Potassium Chloride [K-Tab ER] 10 meq PO DAILY 07/25/14 01/18/19 Sertraline HCl [Zoloft] 100 mg PO DAILY 07/25/14 01/18/19 lamoTRIgine [LaMICtal] 150 mg PO BID 07/25/14 01/18/19 metFORMIN HCL [Glucophage] 500 mg PO DAILY 07/25/14 01/18/19 Fish Oil/Dha/Epa [Fish Oil 1,200 1 cap PO DAILY 03/06/17 01/18/19 mg Fish Oil] Gabapentin 800 mg PO BID 03/06/17 01/18/19 HYDROcodone/APAP 7.5-325MG [[place] 1 tab PO BID 04/21/17 01/18/19 7.5-325] Previous Rx's Medication Instructions Recorded Ibuprofen 800 mg PO Q6HR PRN #20 tablet 03/12/18 Allergies Allergy/AdvReac Type Severity Reaction Status Date / Time codeine Allergy Hallucinati Verified 10/16/19 18:03 ons donepezil HCl [From Aricept] Allergy Hallucinati Verified 10/16/19 18:03 ons Penicillins Allergy Unknown Verified 10/16/19 18:03 Childhood Sulfa (Sulfonamide Allergy Unknown Verified 10/16/19 18:03 Antibiotics) Childhood Review of Systems ROS Statement: Those systems with pertinent positive or pertinent negative responses have been documented in the HPI. ROS Other: All systems not noted in ROS Statement are negative. Constitutional: Denies: fever Eyes: Denies: eye pain ENT: Denies: ear pain Respiratory: Denies: cough, dyspnea Cardiovascular: Denies: chest pain Endocrine: Denies: fatigue Gastrointestinal: Denies: abdominal pain, vomiting Genitourinary: Denies: dysuria Musculoskeletal: Denies: back pain Skin: Denies: rash Neurological: Reports: as per HPI, headache, weakness (Generalized, nonlocalized). Denies: confusion Past Medical History Past Medical History: Diabetes Mellitus, Hyperlipidemia, Hypertension, Rheumatoid Arthritis (RA) Additional Past Medical History / Comment(s): brain injury, neuropathy, chronic back and shoulder pain History of Any Multi-Drug Resistant Organisms: None Reported Past Surgical History: Cholecystectomy, Hernia Repair Additional Past Surgical History / Comment(s): splenectomy, neck surg, left eye Past Psychological History: Anxiety, Bipolar, Depression, Schizophrenia Smoking Status: Current every day smoker Past Alcohol Use History: Daily Past Drug Use History: None Reported General Exam Limitations: no limitations General appearance: alert, in no apparent distress Head exam: Present: normocephalic Eye exam: Present: normal appearance, PERRL, EOMI ENT exam: Present: normal oropharynx Neck exam: Present: normal inspection Respiratory exam: Present: normal lung sounds bilaterally Cardiovascular Exam: Present: regular rate, normal rhythm Expanded Peripheral pulses: 2+: Radial (R), Radial (L), Dorsalis Pedis (R), Dorsalis Pedis (L) GI/Abdominal exam: Present: soft. Absent: distended, tenderness, pulsatile mass Extremities exam: Present: normal inspection Neurological exam: Present: alert, oriented X3, CN II-XII intact. Absent: motor sensory deficit Expanded Speech: Present: fluid speech Cranial nerves: EOM's Intact: Normal Sensory exam: Upper Extremity Light Touch: Normal, Lower Extremity Light Touch: Normal Motor strength exam: RUE: 5, LUE: 5, RLE: 5, LLE: 5 Eye Response: (4) open spontaneously Motor Response: (6) obeys commands Verbal Response: (5) oriented Psychiatric exam: Present: normal affect, normal mood Skin exam: Present: normal color Course Vital Signs 10/16/19 10/16/19 17:57 19:00 Temperature 98.0 F Pulse Rate 73 73 Respiratory 18 18 Rate Blood Pressure 79/48 95/56 O2 Sat by Pulse 96 99 Oximetry Medical Decision Making - Medical Decision Making Case was discussed in detail with Dr. Iniguez who did evaluate patient and will admit covering for Dr. Kerr ut. - Lab Data Result diagrams: 10/16/19 18:16 10/16/19 18:16 Lab Results 10/16/19 10/16/19 10/16/19 Range/Units 18:16 18:16 18:16 WBC 14.6 H (3.8-10.6) k/uL RBC 4.27 L (4.30-5.90) m/uL Hgb 13.9 (13.0-17.5) gm/dL Hct 42.0 (39.0-53.0) % MCV 98.2 (80.0-100.0) fL MCH 32.4 (25.0-35.0) pg MCHC 33.0 (31.0-37.0) g/dL RDW 13.1 (11.5-15.5) % Plt Count 266 (150-450) k/uL Neutrophils % 59 % Lymphocytes % 27 % Monocytes % 8 % Eosinophils % 3 % Basophils % 1 % Neutrophils # 8.6 H (1.3-7.7) k/uL Lymphocytes # 3.9 (1.0-4.8) k/uL Monocytes # 1.2 H (0-1.0) k/uL Eosinophils # 0.4 (0-0.7) k/uL Basophils # 0.1 (0-0.2) k/uL PT 10.1 (9.0-12.0) sec INR 1.0 (<1.2) APTT 24.9 (22.0-30.0) sec D-Dimer 4.66 H (<0.60) mg/L FEU Sodium 134 L (137-145) mmol/L Potassium 5.0 (3.5-5.1) mmol/L Chloride 101 (98-107) mmol/L Carbon Dioxide 22 (22-30) mmol/L Anion Gap 11 mmol/L BUN 50 H (9-20) mg/dL Creatinine 4.53 H (0.66-1.25) mg/dL Est GFR (CKD-EPI)AfAm 15 (>60 ml/min/1.73 sqM) Est GFR (CKD-EPI)NonAf 13 (>60 ml/min/1.73 sqM) Glucose 82 (74-99) mg/dL Plasma Lactic Acid John (0.7-2.0) mmol/L Calcium 9.2 (8.4-10.2) mg/dL Phosphorus 7.5 H (2.5-4.5) mg/dL Magnesium 2.3 (1.6-2.3) mg/dL Total Bilirubin 0.8 (0.2-1.3) mg/dL AST 29 (17-59) U/L ALT 20 (4-49) U/L Alkaline Phosphatase 98 (38-126) U/L Total Protein 7.0 (6.3-8.2) g/dL Albumin 4.0 (3.5-5.0) g/dL 10/16/19 Range/Units 18:16 WBC (3.8-10.6) k/uL RBC (4.30-5.90) m/uL Hgb (13.0-17.5) gm/dL Hct (39.0-53.0) % MCV (80.0-100.0) fL MCH (25.0-35.0) pg MCHC (31.0-37.0) g/dL RDW (11.5-15.5) % Plt Count (150-450) k/uL Neutrophils % % Lymphocytes % % Monocytes % % Eosinophils % % Basophils % % Neutrophils # (1.3-7.7) k/uL Lymphocytes # (1.0-4.8) k/uL Monocytes # (0-1.0) k/uL Eosinophils # (0-0.7) k/uL Basophils # (0-0.2) k/uL PT (9.0-12.0) sec INR (<1.2) APTT (22.0-30.0) sec D-Dimer (<0.60) mg/L FEU Sodium (137-145) mmol/L Potassium (3.5-5.1) mmol/L Chloride (98-107) mmol/L Carbon Dioxide (22-30) mmol/L Anion Gap mmol/L BUN (9-20) mg/dL Creatinine (0.66-1.25) mg/dL Est GFR (CKD-EPI)AfAm (>60 ml/min/1.73 sqM) Est GFR (CKD-EPI)NonAf (>60 ml/min/1.73 sqM) Glucose (74-99) mg/dL Plasma Lactic Acid John 1.3 (0.7-2.0) mmol/L Calcium (8.4-10.2) mg/dL Phosphorus (2.5-4.5) mg/dL Magnesium (1.6-2.3) mg/dL Total Bilirubin (0.2-1.3) mg/dL AST (17-59) U/L ALT (4-49) U/L Alkaline Phosphatase (38-126) U/L Total Protein (6.3-8.2) g/dL Albumin (3.5-5.0) g/dL - Radiology Data Radiology results: report reviewed (Computed tomography scan the brain shows stable mild changes of chronic small vessel ischemic disease. No acute in tercranial abnormality.), image reviewed (Chest x-ray shows focal left basilar opacity) Critical Care Time Critical Care Time: Yes Total Critical Care Time: 33 Disposition Clinical Impression: Community acquired pneumonia, Hypotension, ARF (acute renal failure) Disposition: ADMITTED IP TO THIS HOSP Is patient prescribed a controlled substance at d/c from ED?: No Decision Time: 19:27
--- NOTE | 2019-10-16 18:49 | XR ---
EXAMINATION TYPE: XR chest 1V portable DATE OF EXAM: 10/16/2019 Comparison: 04/21/2017 Clinical History: 64-year-old male General weakness Findings: Heart upper limits of normal in size. Aorta and pulmonary vasculature within normal limits. Focal lef t basilar opacity. No sizable effusion. Impression: Focal left basilar opacity. Correlate for possible early developing pneumonia. Follow-up as indicated .
--- NOTE | 2019-10-16 19:12 | CT ---
EXAMINATION TYPE: CT brain wo con DATE OF EXAM: 10/16/2019 COMPARISON: 04/21/2017 HISTORY: 64-year-old male with weakness TECHNIQUE: Examination was done in axial plane without intravenous contrast. Coronal and sagittal r econstructions performed. CT DLP: 1099.4 mGycm Automated exposure control for dose reduction was used. FINDINGS: There is no evidence of acute intracranial hemorrhage, acute ischemic changes, mass, mass-effect, or extra-axial fluid collection. There is no effacement of cerebral sulci or basal subarachnoid cister ns. There is no hydrocephalus. There is no midline shift. Hill-white matter distinction is preserv ed. Mild patchy periventricular white matter hypodensities. Stable subcortical hypodensity in the anterio r left subinsular region. Moderate mucosal thickening throughout the ethmoid air cells. Mastoid air cells are well pneumatized. Orbits and globes appear intact. IMPRESSION: Stable mild changes of chronic small vessel ischemic disease. No acute intracranial abnormality seen.
[2019-10-16] MEDS ORDERED: AZITHROMYCIN 500 MG in SODIUM CHLORIDE 0.9% 250 ML IVPB STA (19:19)
[2019-10-16] MEDS ORDERED: PNEUMONIA PROTOCOL UTILIZED 1 EACH MISC PO PRN (19:19)
[2019-10-16 19:29] LABS: Basophils # (A) 0.1 k/uL (0-0.2); Basophils % (A) 1 %; Eosinophils # (A) 0.4 k/uL (0-0.7); Eosinophils % (A) 3 %; HGB 13.9 gm/dL (13.0-17.5); Lymphocytes # (A) 3.9 k/uL (1.0-4.8); Lymphocytes % (A) 27 %; MCH 32.4 pg (25.0-35.0); MCV 98.2 fL (80.0-100.0); Mean Platelet Volume 8.9; Monocytes # (A) 1.2 k/uL (0-1.0); Monocytes % (A) 8 %; Neutrophils # (A) 8.6 k/uL (1.3-7.7); Neutrophils % (A) 59 %; Platelet Count 266 k/uL (150-450); RBC 4.27 m/uL (4.30-5.90); RDW 13.1 % (11.5-15.5); WBC 14.6 k/uL (3.8-10.6)
[2019-10-16 19:34] LABS: Calcium 9.2 mg/dL (8.4-10.2); Magnesium 2.3 mg/dL (1.6-2.3); Phosphorus 7.5 mg/dL (2.5-4.5); Total Bilirubin 0.8 mg/dL (0.2-1.3)
[2019-10-16 19:51] LABS: Partial Thromboplastin Time 24.9 sec (22.0-30.0); Prothrombin Time 10.1 sec (9.0-12.0)
[2019-10-16 19:58] LABS: D-Dimer 4.66 mg/L FEU (<0.60)
[2019-10-16] MEDS: SODIUM CHLORIDE 0.9% 1,000 ML IV SCH (20:03)
[2019-10-16 20:59] LABS: C Reactive Protein 9.6 mg/L (<10.0)
--- NOTE | 2019-10-16 23:25 | HP ---
HISTORY AND PHYSICAL CHIEF COMPLAINTS: Dizziness and headache as well as weakness. HISTORY OF PRESENT ILLNESS: This 64-year-old gentleman with a past medical history of multiple medical problems, including diabetes mellitus, hypertension, hyperlipidemia, history of rheumatoid arthritis, history of traumatic brain injury, history of cholecystectomy, anxiety, bipolar depression, schizophrenia, nicotine dependence, being followed by [facility] and Dr. Rishi Pettit in the outpatient setting, was not feeling well over the past several days. The patient was apparently feeling weak and tired. The patient came to [facility] for further evaluation and treatment. The patient also has some difficulty in walking. The patient has been eating and drinking. No fever. No diarrhea. No contact with any sick individuals. At the time of admission the patient was found to be hypotensive with a blood pressure of 79/48. After IV fluids, blood pressure improved to 95/56. The basic labs showed some significant renal failure at 4.53, indicating prerenal acute renal failure. White count was elevated to 14.7. Patient was admitted for further evaluation and treatment. There is no history of any fever, rigor or chills. No history of headache, loss of consciousness, seizures at this time. PAST MEDICAL HISTORY: Diabetes mellitus, hypertension, hyperlipidemia, rheumatoid arthritis, history of brain injury, history of cholecystectomy, anxiety, bipolar, depression. HOME MEDICATIONS: 1. Glucophage 500 mg p.o. daily. 2. Lamictal 150 mg p.o. b.i.d. 3. Zoloft 100 mg p.o. daily. 4. K-Tab 10 mEq p.o. daily. 5. Multivitamins 1 p.o. daily. 6. Provigil 100 mg p.o. daily. 7. Lopressor 25 mg p.o. b.i.d. 8. Zestril 5 mg p.o. daily. 9. Ibuprofen 800 mg q.6 p.r.n. 10.[place] 7.5 mg b.i.d. 11.Gabapentin 800 mg p.o. b.i.d. 12.Lasix 20 mg p.o. daily. 13.Fish oil 1 p.o. daily. 14.Lipitor 10 mg p.o. daily. 15.Ecotrin 81 mg p.o. daily. 16.Elavil 75 mg at bedtime. ALLERGIES: CODEINE, ARICEPT, PENICILLIN, SULFA. FAMILY HISTORY: No history of heart disease or strokes in the family. SOCIAL HISTORY: History of smoking. Occasional alcohol intake. REVIEW OF SYSTEMS: ENT: No diminished hearing. No diminished vision. CARDIOVASCULAR SYSTEM: No angina, palpitations. RESPIRATORY SYSTEM: No cough, hemoptysis. GI: As mentioned earlier. : As mentioned earlier. NERVOUS SYSTEM: As mentioned earlier. ALLERGY/IMMUNOLOGY: No asthma, hayfever. MUSCULOSKELETAL: As mentioned earlier. HEMATOLOGY/ONCOLOGY: No history of anemia. ENDOCRINE: Diabetes mellitus. CONSTITUTIONAL: As mentioned earlier. DERMATOLOGY: Negative. RHEUMATOLOGY: Negative. PSYCHIATRY: As mentioned earlier. PHYSICAL EXAMINATION: Patient is alert, oriented x3. The pulse is 73, blood pressure 79/48, respiration 18, temperature 98 degrees, pulse ox 96% on room air. HEENT: Conjunctivae normal. Oral mucosa dry. NECK: No jugular venous distention. No carotid bruit. No lymph node enlargement. CARDIOVASCULAR SYSTEM: S1, S2 muffled. No S3. No S4. RESPIRATORY SYSTEM: Breath sounds diminished at the bases. A few scattered rhonchi. No crackles. ABDOMEN: Soft, non-tender. No mass palpable. LEGS: No edema. No swelling. NERVOUS SYSTEM: Higher functions as mentioned earlier. Moves all 4 limbs. No focal motor or sensory deficit. LYMPHATICS: No lymph node palpable in neck, axillae or groin. SKIN: No ulcer, rash, bleeding. JOINTS: No active deforming arthropathy. LABS: WBC 14.6, hemoglobin 13.9. Sodium 134, potassium 5, creatinine 4.53. ASSESSMENT: 1. Severe acute renal failure, possibly acute prerenal renal failure with acute tubular necrosis. 2. Severe dehydration, present on admission. 3. Generalized weakness. Rule out COVID-19. 4. Hyponatremia. 5. Increased white count. 6. History of diabetes mellitus, type 2. 7. Hypertension. 8. Hyperlipidemia. 9. History of rheumatoid arthritis. 10.History of traumatic brain injury. 11.History of peripheral neuropathy. 12.Degenerative joint disease with chronic back and shoulder pain. 13.History of cholecystectomy. 14.History of splenectomy. 15.History of anxiety, bipolar, depression, schizophrenia. 16.History of nicotine dependence. 17.History of alcohol usage daily. RECOMMENDATIONS AND DISCUSSION: In this 64-year-old gentleman who presented with multiple complex medical issues, we will monitor the patient closely, continue the current medications. Exact etiology of the renal failure is unknown at this time. The patient's symptoms are also not explained at this time. Will continue with hydration. Nephrology consultation. I would also obtain cultures and initiate the patient on empiric IV antibiotics. COVID-19 has been requested. Otherwise, we will proceed with the basic labs, including UA with micro. See orders for further details. Further recommendations to follow. A copy of this dictation is being forwarded to Dr. Pettit, who is the primary physician. Discussed with the patient at length, who understands and agrees. MMODL / IJN: [id number] /
--- NOTE | 2019-10-16 23:26 | NM ---
EXAMINATION TYPE: NM pul vent and perfuse DATE OF EXAM: 10/16/2019 COMPARISON: NONE HISTORY: Weakness. Fatigue. Elevated d-dimer TECHNIQUE: Utilizing inhalation of 34.6 mCi Tc 99m DTPA aerosol and intravenous injection of 5.3 mCi of Tc 99m MAA, ventilation and perfusion images are acquired post injection in multiple projections. FINDINGS: There are small subsegmental perfusion defects in the anterior segment of the right upper lobe and in the superior segment left lower lobe. Perfusion abnormalities are small compared to the multiple hermelinda tilation abnormalities. IMPRESSION: There is evidence of airway disease with multiple segmental sized ventilation abnormalities. No signi ficant perfusion defect. There is a low probability of pulmonary embolism.
[2019-10-17] MEDS: lamoTRIgine 100 MG TAB PO SCH ×3 (00:52→20:36)
[2019-10-17] MEDS: AMITRIPTYLINE HCL 25 MG TAB PO SCH ×2 (00:52→20:35)
[2019-10-17] MEDS: METOPROLOL TARTRATE 25 MG TAB PO SCH ×2 (00:53→08:29)
[2019-10-17 01:15] LABS: Appearance,Urine Cloudy (Clear); Bacteria,Urine Rare /hpf; Bilirubin,Urine Negative (Negative); Blood,Urine Moderate (Negative); Calcium Oxalate Crystals,Urine Occasional /hpf; Color,Urine Yellow; Glucose,Urine (UA) Negative (Negative); Hyaline Casts,Urine 191 /lpf (0-2); Ketones,Urine Negative (Negative); Leukocyte Esterase,Urine Negative (Negative); Mucus,Urine Occasional /hpf; Nitrite,Urine Negative (Negative); PH, Urine 5.5 (5.0-8.0); Protein,Urine 1+ (Negative); RBC,Urine 26 /hpf (0-5); Specific Gravity,Urine 1.016 (1.001-1.035); Squamous Epithelial Cell,Urine 1 /hpf (0-4); Urobilinogen,Urine <2.0 mg/dL (<2.0); WBC,Urine 5 /hpf (0-5)
[2019-10-17 06:33] LABS: Basophils # (A) 0.1 k/uL (0-0.2); Basophils % (A) 1 %; Eosinophils # (A) 0.6 k/uL (0-0.7); Eosinophils % (A) 4 %; HCT 41.5 % (39.0-53.0); HGB 13.5 gm/dL (13.0-17.5); Lymphocytes # (A) 3.1 k/uL (1.0-4.8); Lymphocytes % (A) 25 %; MCH 31.8 pg (25.0-35.0); MCHC 32.6 g/dL (31.0-37.0); MCV 97.7 fL (80.0-100.0); Mean Platelet Volume 9.1; Monocytes # (A) 0.9 k/uL (0-1.0); Monocytes % (A) 7 %; Neutrophils # (A) 7.5 k/uL (1.3-7.7); Neutrophils % (A) 60 %; Platelet Count 265 k/uL (150-450); RBC 4.25 m/uL (4.30-5.90); RDW 12.9 % (11.5-15.5); WBC 12.5 k/uL (3.8-10.6)
[2019-10-17 06:43] LABS: Potassium 4.1 mmol/L (3.5-5.1)
--- NOTE | 2019-10-17 07:45 | XR ---
EXAMINATION TYPE: XR chest 1V DATE OF EXAM: 10/17/2019 COMPARISON: 10/16/2019 HISTORY: Abnormal x-ray TECHNIQUE: Single frontal view of the chest is obtained. FINDINGS: Subsegmental changes at the lung bases persist. No overt failure. No pneumothorax. Postsur gical change overlying the cervical spine. Heart size stable. IMPRESSION: Basilar atelectasis or infiltrate stable.
[2019-10-17] MEDS: HYDROcodone/APAP 7.5-325MG 1 EACH TAB PO SCH ×2 (08:27→20:36)
[2019-10-17] MEDS: GABAPENTIN 400 MG CAP PO SCH ×2 (08:29→20:36)
[2019-10-17] MEDS: ASPIRIN 81 MG PO SCH (08:29)
[2019-10-17] MEDS ORDERED: SERTRALINE 100 MG TAB PO SCH (09:00)
[2019-10-17] MEDS ORDERED: FUROSEMIDE 20 MG TAB PO SCH (09:00)
[2019-10-17] MEDS ORDERED: LISINOPRIL 20 MG TAB PO SCH (09:00)
[2019-10-17] MEDS ORDERED: ATORVASTATIN 10 MG TAB PO SCH (09:00)
[2019-10-17] MEDS ORDERED: metFORMIN 500 MG TAB PO SCH (09:00)
[2019-10-17] MEDS ORDERED: LISINOPRIL 5 MG TAB PO SCH (09:00)
[2019-10-17] MEDS: POTASSIUM CHLORIDE ER 10 MEQ TAB.ER.PRT PO SCH (09:49)
--- NOTE | 2019-10-17 13:01 | P.NPCON ---
History of Present Illness - Reason for Consult acute renal failure - History of Present Illness Reason for consultation: Acute kidney injury History of present illness: Patient is a 64-year-old male seen in renal consultation for acute kidney injury. Patient's creatinine was 4.53 on admission and is 1.83 today. Patient presented to the hospital due to dizziness. Patient states he went to his primary care physician's office and felt quite lightheaded when he got there. Patient states when he got out of the car he felt towards the car. He denies losing consciousness. He was then taken inside the doctor's office by wheelchair and subsequently sent here. He's currently receiving normal saline at 100 mL an hour. Admits to good urine output. No hematuria or dysuria. Denies chest pain or shortness of breath. No edema. He did receive 1 L of normal saline bolus on admission as well. Blood pressure was in the systolic 70s on admission and most recent blood pressure reading was 104/46. He was taking antihypertensives at home including lisinopril, hydrochlorothiazide and Lasix. Additionally he does admit to taking Motrin 800 mg 3 times daily for the last 1 year. He denies family history of renal disease. No abdominal pain. No fever. No cough. Vital signs are stable. General: The patient appeared well nourished and normally developed. HEENT: Head exam is unremarkable. Neck is without jugular venous distension. LUNGS: Lungs are clear to auscultation and percussion. Breath sounds decreased. HEART: Rate and Rhythm are regular. ABDOMEN: Soft, nontender. EXTREMITITES: No clubbing, cyanosis, or edema. Past Medical History Past Medical History: Diabetes Mellitus, Hyperlipidemia, Hypertension, Rheumatoid Arthritis (RA) Additional Past Medical History / Comment(s): brain injury, neuropathy, chronic back and shoulder pain History of Any Multi-Drug Resistant Organisms: None Reported Past Surgical History: Cholecystectomy, Hernia Repair Additional Past Surgical History / Comment(s): splenectomy, neck surg, left eye Past Psychological History: Anxiety, Bipolar, Depression, Schizophrenia Smoking Status: Current every day smoker Past Alcohol Use History: Daily Past Drug Use History: None Reported Medications and Allergies Home Medications Medication Instructions Recorded Confirmed Type Amitriptyline HCl [Elavil] 75 mg PO HS 07/25/14 10/17/19 History Aspirin EC [Ecotrin] 81 mg PO DAILY 07/25/14 10/17/19 History Atorvastatin [Lipitor] 10 mg PO DAILY 07/25/14 10/17/19 History Furosemide [Lasix] 20 mg PO DAILY 07/25/14 10/17/19 History Metoprolol Tartrate [Lopressor] 25 mg PO BID 07/25/14 10/17/19 History Modafinil [Provigil] 100 mg PO DAILY 07/25/14 10/17/19 History Multivitamin [Men's Multi-Vitamin] 1 tab PO DAILY 07/25/14 10/17/19 History Potassium Chloride [K-Tab ER] 10 meq PO Q48H 07/25/14 10/17/19 History Sertraline HCl [Zoloft] 100 mg PO DAILY 07/25/14 10/17/19 History lamoTRIgine [LaMICtal] 150 mg PO BID 07/25/14 10/17/19 History metFORMIN HCL [Glucophage] 500 mg PO DAILY 07/25/14 10/17/19 History Fish Oil/Dha/Epa [Fish Oil 1,200 1 cap PO DAILY 03/06/17 10/17/19 History mg Fish Oil] Gabapentin 800 mg PO TID 03/06/17 10/17/19 History HYDROcodone/APAP 7.5-325MG [[place] 1 tab PO BID 04/21/17 10/17/19 History 7.5-325] Ferrous Sulfate [Feosol] 325 mg PO DAILY 10/17/19 10/17/19 History Hydrochlorothiazide 25 mg PO DAILY 10/17/19 10/17/19 History Ibuprofen 800 mg PO TID PRN 10/17/19 10/17/19 History Lisinopril 20 mg PO BID 10/17/19 10/17/19 History Allergies Allergy/AdvReac Type Severity Reaction Status Date / Time codeine Allergy Hallucinati Verified 10/17/19 12:14 ons donepezil HCl [From Aricept] Allergy Hallucinati Verified 10/17/19 12:14 ons Penicillins Allergy Unknown Verified 10/17/19 12:14 Childhood Sulfa (Sulfonamide Allergy Unknown Verified 10/17/19 12:14 Antibiotics) Childhood Physical Exam Vitals: Vital Signs Temp Pulse Pulse Resp BP BP Pulse Ox 10/17/19 10:59 98 F 79 16 104/46 91 L 10/17/19 08:00 1 L 10/17/19 05:57 97.0 F L 77 16 101/56 96 10/17/19 05:00 80 16 10/17/19 04:00 76 18 106/63 10/17/19 03:00 18 10/17/19 00:33 97.1 F L 73 18 108/65 98 10/16/19 21:00 82 17 94/53 97 10/16/19 20:30 76 17 101/60 97 10/16/19 20:00 85 18 91/78 97 10/16/19 19:30 68 16 95/56 97 10/16/19 19:00 70 16 94/50 97 10/16/19 18:30 71 17 84/56 97 10/16/19 18:01 79/48 86 L 10/16/19 17:57 98.0 F 73 18 79/48 96 Intake and Output 10/16/19 10/17/19 10/17/19 22:59 06:59 14:59 Other: Weight 104.326 kg 104.326 kg Results - Lab Results Most recent lab results Calcium 9.0 mg/dL (8.4-10.2) 10/17/19 06:17 Phosphorus 7.5 mg/dL (2.5-4.5) H 10/16/19 18:16 Magnesium 2.3 mg/dL (1.6-2.3) 10/16/19 18:16 10/17/19 06:17 10/17/19 06:17 Assessment and Plan Plan: Assessment: 1. Acute kidney injury mostly prerenal secondary to hypotension and intravascular volume depletion. Creatinine was 4.53 on admission and is 1.83 today. Baseline creatinine near 1. 2. History of hypertension. Blood pressure currently in the lower side. Cortisol level normal. 3. Presyncope due to hypotension. 4. Diabetes mellitus. Plan: Maintain normal saline at 100 mL an hour. Discontinue all antihypertensives. Check a.m. cortisol level. Avoid nephrotoxins. Repeat electrolytes in the morning. Thank you for the consultation. I will continue to follow the patient with you during his hospital stay.
[2019-10-17] MEDS: SODIUM CHLORIDE 0.9% 1,000 ML IV SCH (17:12)
--- NOTE | 2019-10-17 19:44 | PN ---
PROGRESS NOTE DATE OF SERVICE: 10/17/2019 This 64-year-old gentleman who was admitted with severe acute renal failure also had possible acute tubular necrosis. The patient also had severe dehydration present on admission. COVID-19 is in progress at this time. The patient was given significant IV fluids. Creatinine has returned to 1.83 from 4.53. D-dimer was 4.66. The patient had a chest x-ray today that showed some bilateral atelectasis. Chest x-ray was personally reviewed by me. Otherwise, Nephrology has seen the patient and recommended continuing with IV fluids at 100 mL/hour and continue with antihypertensives, also. Past medical history reviewed. A V/Q scan was done which showed low probability. REVIEW OF SYSTEMS: CARDIOVASCULAR SYSTEM: No angina, palpitations. RESPIRATORY SYSTEM: As mentioned earlier. GI: As mentioned earlier. : No dysuria or retention. NERVOUS SYSTEM: No numbness, weakness. CURRENT MEDICATIONS: Reviewed. They include: 1. [place] 7.5 mg. 2. Elavil. 3. Aspirin 81 mg. 4. Lipitor 10 mg. 5. Zithromax. 6. Rocephin 1 gram. 7. Neurontin 800 mg. 8. Lamictal. 9. K-Dur. 10.Zoloft. PHYSICAL EXAMINATION: Patient is alert, oriented x3. Pulse 77, blood pressure 101/56, respirations 16, temperature 97 degrees, pulse ox 96% on 2 L. HEENT: Conjunctivae normal. NECK: No jugular venous distention. CARDIOVASCULAR SYSTEM: S1, S2 muffled. RESPIRATORY SYSTEM: Breath sounds diminished at the bases. A few scattered rhonchi and crackles. ABDOMEN: Soft, non-tender. LEGS: No edema. No swelling. NERVOUS SYSTEM: No focal deficit. LABS: WBC 12.3, hemoglobin 16.5, creatinine is 1.83. UA shows 26 WBCs. ASSESSMENT: 1. Severe acute renal failure, possibly prerenal acute renal failure with acute tubular necrosis, present on admission. 2. Severe dehydration, present on admission. 3. Generalized weakness; rule out COVID-19. 4. Hyponatremia. 5. Increased white count. 6. Bibasilar atelectasis. 7. History of diabetes mellitus, type 2. 8. Hypertension. 9. Hyperlipidemia. 10.History of rheumatoid arthritis. 11.History of traumatic brain injury. 12.History of peripheral neuropathy. 13.Degenerative joint disease with chronic back as well as shoulder pain. 14.History of cholecystectomy. 15.History of splenectomy. 16.Anxiety, bipolar, depression, schizophrenia. 17.History of nicotine dependence. 18.History of alcohol usage daily. RECOMMENDATIONS AND DISCUSSION: In this 64-year-old gentleman who presented with multiple complex medical issues, we will continue to monitor, continue with the cautious hydration, repeat labs and continue with the empiric antibiotics. The cultures are negative, but the patient is post splenectomy. Otherwise, continue the rest of the medications. I recommend that the patient follow up closely with Dr. Pettit after discharge. Further recommendations to follow. MMODL / IJN: [id number] /
[2019-10-17] MEDS: AZITHROMYCIN 500 MG TAB PO SCH (20:34)
[2019-10-17] MEDS: ATORVASTATIN 10 MG TAB PO SCH (20:41)
[2019-10-17] MEDS: SERTRALINE 100 MG TAB PO SCH (20:41)
[2019-10-18] MEDS: SODIUM CHLORIDE 0.9% 1,000 ML IV SCH ×2 (04:03→17:34)
[2019-10-18 08:08] LABS: African American GFR (CKD) >90 (>60 ml/min/1.73 sqM); Anion Gap 5 mmol/L; Blood Urea Nitrogen 22 mg/dL (9-20); Calcium 8.6 mg/dL (8.4-10.2); Carbon Dioxide 24 mmol/L (22-30); Chloride 107 mmol/L (98-107); Glucose 103 mg/dL (74-99); Magnesium 2.1 mg/dL (1.6-2.3); Non-African American GFR(CKD) >90 (>60 ml/min/1.73 sqM); Potassium 4.6 mmol/L (3.5-5.1); Sodium 136 mmol/L (137-145)
[2019-10-18 08:13] LABS: Basophils # (A) 0.1 k/uL (0-0.2); Basophils % (A) 1 %; Eosinophils # (A) 0.5 k/uL (0-0.7); Eosinophils % (A) 5 %; HCT 39.2 % (39.0-53.0); HGB 13.6 gm/dL (13.0-17.5); Lymphocytes % (A) 39 %; MCH 33.7 pg (25.0-35.0); MCHC 34.6 g/dL (31.0-37.0); MCV 97.3 fL (80.0-100.0); Mean Platelet Volume 9.3; Monocytes # (A) 0.7 k/uL (0-1.0); Monocytes % (A) 7 %; Neutrophils # (A) 4.7 k/uL (1.3-7.7); Neutrophils % (A) 45 %; Platelet Count 264 k/uL (150-450); RBC 4.03 m/uL (4.30-5.90); RDW 13.2 % (11.5-15.5); WBC 10.4 k/uL (3.8-10.6)
[2019-10-18] MEDS: GABAPENTIN 400 MG CAP PO SCH ×2 (08:16→20:01)
[2019-10-18] MEDS: POTASSIUM CHLORIDE ER 10 MEQ TAB.ER.PRT PO SCH (08:16)
[2019-10-18] MEDS: ASPIRIN 81 MG PO SCH (08:16)
[2019-10-18] MEDS: SERTRALINE 100 MG TAB PO SCH (08:16)
[2019-10-18] MEDS: lamoTRIgine 100 MG TAB PO SCH ×2 (08:17→20:00)
[2019-10-18] MEDS: ATORVASTATIN 10 MG TAB PO SCH (08:17)
[2019-10-18] MEDS: HYDROcodone/APAP 7.5-325MG 1 EACH TAB PO SCH ×2 (08:17→20:00)
--- NOTE | 2019-10-18 10:19 | P.PN ---
Subjective Patient is seen in follow for acute kidney injury. Creatinine was 4.5 on admission and is down to 0.74 today. Blood pressure stable. Oral intake is good. No vomiting or diarrhea. Vital signs are stable. General: The patient appeared well nourished and normally developed. HEENT: Head exam is unremarkable. Neck is without jugular venous distension. LUNGS: Lungs are clear to auscultation and percussion. Breath sounds decreased. HEART: Rate and Rhythm are regular. First and second heart sounds normal. ABDOMEN: Nontender, nondistended. EXTREMITITES: No clubbing, cyanosis, or edema. Objective - Vital Signs Vital signs: Vital Signs Temp 97.8 F 10/18/19 06:02 Pulse 72 10/18/19 06:02 Resp 16 10/18/19 06:02 BP 122/69 10/18/19 06:02 Pulse Ox 93 L 10/18/19 06:02 Intake & Output 10/17/19 10/18/19 10/18/19 18:59 06:59 18:59 Intake Total 1100 1340 240 Output Total 600 Balance 1100 740 240 Weight 104.326 kg Intake: Intake, IV Titration 700 1100 Amount Azithromycin 500 mg In 600 Sodium Chloride 0.9% 250 ml @ 250 mls/hr IVPB ONCE STA Rx#:[id number] Sodium Chloride 0.9% 1, 1100 000 ml @ 100 mls/hr IV . Q10H AYANNA Rx#:[id number] cefTRIAXone 1 gm In 100 Sodium Chloride 0.9% 50 ml @ 100 mls/hr IVPB ONCE STA Rx#:[id number] Oral 400 240 240 Output: Urine 600 Other: # Voids 2 2 - Labs CBC & Chem 7: 10/18/19 06:46 10/18/19 06:46 Labs: Abnormal Lab Results - Last 24 Hours (Table) 10/16/19 10/16/19 10/18/19 Range/Units 18:16 18:16 06:46 WBC 14.6 H (3.8-10.6) k/uL RBC 4.27 L 4.03 L (4.30-5.90) m/uL Neutrophils # 8.6 H (1.3-7.7) k/uL Monocytes # 1.2 H (0-1.0) k/uL Sodium (137-145) mmol/L BUN (9-20) mg/dL Glucose (74-99) mg/dL Procalcitonin 0.29 H (0.02-0.09) ng/mL 10/18/19 Range/Units 06:46 WBC (3.8-10.6) k/uL RBC (4.30-5.90) m/uL Neutrophils # (1.3-7.7) k/uL Monocytes # (0-1.0) k/uL Sodium 136 L (137-145) mmol/L BUN 22 H (9-20) mg/dL Glucose 103 H (74-99) mg/dL Procalcitonin (0.02-0.09) ng/mL Microbiology - Last 24 Hours (Table) 10/16/19 19:48 Blood Culture - Preliminary Blood No Growth after 24 hours Assessment and Plan Plan: Assessment: 1. Acute kidney injury mostly prerenal secondary to hypotension and intravascular volume depletion. Creatinine was 4.53 on admission and is 0.74 today. Baseline creatinine near 1. 2. History of hypertension. Controlled. Cortisol level normal. 3. Presyncope due to hypotension. Improved. 4. Diabetes mellitus. Plan: Decrease rate of normal saline to 50 mL an hour. Check orthostatic vital signs. Avoid nephrotoxins. I have advised the patient to avoid taking nonsteroidals on a regular basis.
--- NOTE | 2019-10-18 16:58 | PN ---
PROGRESS NOTE DATE OF SERVICE: 10/18/2019 This 64-year-old gentleman who was admitted with severe renal failure also had dehydration. The patient is also receiving empiric antibiotics. No chest pain. No palpitations. No fever. PHYSICAL EXAMINATION: Alert and oriented x3. Pulse is 72, blood pressure 137/77. No orthostatic changes. Respiration 16, temperature 97.8, pulse ox 93% on room air. HEENT: Conjunctivae normal. NECK: No jugular venous distention. CARDIOVASCULAR SYSTEM: S1, S2 muffled. RESPIRATORY SYSTEM: Breath sounds diminished at the bases. A few scattered rhonchi. No crackles. ABDOMEN: Soft, non-tender. LEGS: No edema. No swelling. NERVOUS SYSTEM: No focal deficit. LABS: WBC 10.4, hemoglobin 13.6, sodium 136. Cortisol is 8. ASSESSMENT: 1. Severe acute renal failure, possibly prerenal acute tubular necrosis with acute renal failure, present on admission. 2. Severe dehydration, present on admission. 3. Generalized weakness. COVID-19 ruled out. 4. Hyponatremia. 5. Increased white count. 6. Bibasilar atelectasis. 7. History of diabetes mellitus, type 2. 8. Hypertension. 9. Hyperlipidemia. 10.History of rheumatoid arthritis. 11.History of traumatic brain injury. 12.History of peripheral neuropathy. 13.History of degenerative joint disease with chronic back pain and left shoulder pain. 14.History of cholecystectomy. 15.History of splenectomy. 16.Anxiety, bipolar, depression, schizophrenia. 17.History of nicotine dependence. 18.History of alcohol usage daily. RECOMMENDATIONS AND DISCUSSION: I recommend to continue current medications, continue with the monitoring, symptomatic treatment. The cultures are negative at this time. The labs are as noted. Will continue to monitor. Continue with IV fluids cautiously. Cortisol level noted. As mentioned, other cultures are negative. Further recommendations to follow. MMODL / IJN: [id number] /
[2019-10-18] MEDS: AZITHROMYCIN 500 MG TAB PO SCH (17:33)
[2019-10-18] MEDS: AMITRIPTYLINE HCL 25 MG TAB PO SCH (20:00)
[2019-10-19 05:55] LABS: Basophils # (A) 0.1 k/uL (0-0.2); Basophils % (A) 1 %; Eosinophils # (A) 0.5 k/uL (0-0.7); Eosinophils % (A) 5 %; HCT 41.9 % (39.0-53.0); HGB 13.7 gm/dL (13.0-17.5); Lymphocytes % (A) 37 %; MCH 31.8 pg (25.0-35.0); MCHC 32.6 g/dL (31.0-37.0); MCV 97.6 fL (80.0-100.0); Mean Platelet Volume 8.6; Monocytes # (A) 0.8 k/uL (0-1.0); Monocytes % (A) 7 %; Neutrophils # (A) 5.2 k/uL (1.3-7.7); Neutrophils % (A) 48 %; Platelet Count 260 k/uL (150-450); RDW 12.7 % (11.5-15.5); WBC 10.8 k/uL (3.8-10.6)
[2019-10-19] MEDS: SODIUM CHLORIDE 0.9% 1,000 ML IV SCH (06:01)
[2019-10-19 06:05] LABS: African American GFR (CKD) >90 (>60 ml/min/1.73 sqM); Anion Gap 4 mmol/L; Blood Urea Nitrogen 20 mg/dL (9-20); Carbon Dioxide 26 mmol/L (22-30); Chloride 106 mmol/L (98-107); Glucose 98 mg/dL (74-99); Non-African American GFR(CKD) >90 (>60 ml/min/1.73 sqM); Potassium 4.8 mmol/L (3.5-5.1); Sodium 136 mmol/L (137-145)
[2019-10-19] MEDS: ATORVASTATIN 10 MG TAB PO SCH (09:33)
[2019-10-19] MEDS: ASPIRIN 81 MG PO SCH (09:33)
[2019-10-19] MEDS: GABAPENTIN 400 MG CAP PO SCH ×2 (09:34→21:07)
[2019-10-19] MEDS: lamoTRIgine 100 MG TAB PO SCH ×2 (09:34→21:07)
[2019-10-19] MEDS: HYDROcodone/APAP 7.5-325MG 1 EACH TAB PO SCH ×2 (09:34→21:06)
[2019-10-19] MEDS: POTASSIUM CHLORIDE ER 10 MEQ TAB.ER.PRT PO SCH (09:34)
[2019-10-19] MEDS: SERTRALINE 100 MG TAB PO SCH ×2 (09:47→21:13)
--- NOTE | 2019-10-19 13:15 | P.PN ---
Subjective Patient is seen in follow for acute kidney injury, now resolved. Blood pressure stable. Orthostatics negative. Oral intake is good. No vomiting or diarrhea. Vital signs are stable. General: The patient appeared well nourished and normally developed. HEENT: Head exam is unremarkable. Neck is without jugular venous distension. LUNGS: Lungs are clear to auscultation and percussion. Breath sounds decreased. HEART: Rate and Rhythm are regular. First and second heart sounds normal. ABDOMEN: Nontender, nondistended. EXTREMITITES: No clubbing, cyanosis, or edema. Objective - Vital Signs Vital signs: Vital Signs Temp 97.7 F 10/19/19 11:37 Pulse 68 10/19/19 11:37 Resp 18 10/19/19 11:37 BP 145/79 10/19/19 11:37 Pulse Ox 98 10/19/19 11:37 Intake & Output 10/18/19 10/19/19 10/19/19 18:59 06:59 18:59 Intake Total 1900 800 240 Balance 1900 800 240 Weight 105.5 kg Intake: Intake, IV Titration 450 800 Amount Sodium Chloride 0.9% 1, 400 400 000 ml @ 50 mls/hr IV . Q20H AYANNA Rx#:[id number] cefTRIAXone 1 gm In 50 400 Sodium Chloride 0.9% 50 ml @ 100 mls/hr IVPB Q24HR AYANNA Rx#:[id number] Oral 1450 240 Other: Voiding Method Toilet Urinal # Voids 2 1 - Labs CBC & Chem 7: 10/19/19 05:25 10/19/19 05:25 Labs: Abnormal Lab Results - Last 24 Hours (Table) 10/19/19 10/19/19 Range/Units 05:25 05:25 WBC 10.8 H (3.8-10.6) k/uL Sodium 136 L (137-145) mmol/L Microbiology - Last 24 Hours (Table) 10/16/19 19:48 Blood Culture - Preliminary Blood No Growth after 48 hours Assessment and Plan Plan: Assessment: 1. Acute kidney injury mostly prerenal secondary to hypotension and intravascular volume depletion. Creatinine was 4.53 on admission and is 0.73 today. Baseline creatinine near 1. 2. History of hypertension. Controlled. Cortisol level normal. 3. Presyncope due to hypotension. Improved. Orthostatics negative. 4. Diabetes mellitus. Plan: Heplock IVFs. Avoid nephrotoxins. I have advised the patient to avoid taking nonsteroidals on a regular basis.
--- NOTE | 2019-10-19 14:22 | P.DS ---
Providers Date of admission: 10/17/19 13:26 Expected date of discharge: 10/19/19 Attending physician: Noman Iniguez Consults: 10/16/19 19:49 Consult Physician Routine Consulting Provider: Vicente Stevens Consult Reason/Comments: arf Do you want consulting provider notified?: Yes Primary care physician: Rishi Pettit [facility] Course: Final diagnosis Severe acute renal failure, possibly prerenal acute tubular necrosis with acute renal failure, present on admission Severe dehydration, present on admission Generalized weakness. Covid 19 ruled out Hyponatremia Increased white blood count Bibasilar atelectasis History of diabetes mellitus type 2 Hypertension Hyperlipidemia next line history of rheumatoid arthritis history of traumatic brain injury History of peripheral neuropathy history of degenerative joint disease with chronic back pain and left shoulder pain History of cholecystectomy History of splenectomy anxiety, bipolar, depression, schizophrenia history of nicotine dependence History of alcohol use daily Discharge disposition Patient is being discharged in a stable condition with guarded prognosis to home and will follow-up with Dr. Pettit in the outpatient setting upon discharge. Total time taken is greater than 35 minutes. History of present illness This is a 64-year-old male who was recently admitted with severe renal failure and dehydration and was being closely monitored. Patient was seen evaluated by nephrology. Patient was treated with IV hydration along with empiric antibiotic and has shown improvement. Creatinine on admission was 4.53 and is currently 0.73. Patient instructed to avoid NSAIDs and will continue to hold metformin, Lasix, lisinopril, hydrochlorothiazide until follow-up with primary care provider. Patient is a diabetic and instructed to keep a diary of blood sugar readings for primary care follow-up along with following a low potassium diet. Currently no reports of chest pain, shortness of breath, or palpitations. Patient is afebrile. No reports of nausea or vomiting and patient is tolerating diet. Patient will be going home today. Guarded prognosis. On exam vital signs are stable. Temp is 97.7F, pulse is 68, respirations are 18, blood pressure is 145/79, oxygen saturation is 98% on room air. Cardio S1, S2 are muffled. Respiratory system shows diminished breath sounds at the bases with no wheezing or rhonchi noted. Abdomen is soft and obese, and nontender. Nervous system shows no focal deficits. Please refer to medication reconciliation sheet for a list of medications. Patient Condition at Discharge: Stable Plan - Discharge Summary Discharge Rx Participant: No New Discharge Prescriptions: New Azithromycin [Zithromax] 500 mg PO DAILY@1800 4 Days #4 tab Continue metFORMIN HCL [Glucophage] 500 mg PO DAILY Multivitamin [Men's Multi-Vitamin] 1 tab PO DAILY Aspirin EC [Ecotrin Low Dose] 81 mg PO DAILY Atorvastatin [Lipitor] 10 mg PO DAILY Sertraline HCl [Zoloft] 100 mg PO DAILY Potassium Chloride [K-Tab ER] 10 meq PO Q48H Modafinil [Provigil] 100 mg PO DAILY Amitriptyline HCl [Elavil] 75 mg PO HS lamoTRIgine [LaMICtal] 150 mg PO BID Gabapentin 800 mg PO TID Fish Oil/Dha/Epa [Fish Oil 1,200 mg Fish Oil] 1 cap PO DAILY HYDROcodone/APAP 7.5-325MG [[place] 7.5-325] 1 tab PO BID Ferrous Sulfate [Feosol] 325 mg PO DAILY Discontinued Metoprolol Tartrate [Lopressor] 25 mg PO BID Furosemide [Lasix] 20 mg PO DAILY Hydrochlorothiazide 25 mg PO DAILY Ibuprofen 800 mg PO TID PRN PRN Reason: Pain Lisinopril 20 mg PO BID Discharge Medication List Amitriptyline HCl [Elavil] 75 mg PO HS 07/25/14 [History] Aspirin EC [Ecotrin Low Dose] 81 mg PO DAILY 07/25/14 [History] Atorvastatin [Lipitor] 10 mg PO DAILY 07/25/14 [History] Modafinil [Provigil] 100 mg PO DAILY 07/25/14 [History] Multivitamin [Men's Multi-Vitamin] 1 tab PO DAILY 07/25/14 [History] Potassium Chloride [K-Tab ER] 10 meq PO Q48H 07/25/14 [History] Sertraline HCl [Zoloft] 100 mg PO DAILY 07/25/14 [History] lamoTRIgine [LaMICtal] 150 mg PO BID 07/25/14 [History] metFORMIN HCL [Glucophage] 500 mg PO DAILY 07/25/14 [History] Fish Oil/Dha/Epa [Fish Oil 1,200 mg Fish Oil] 1 cap PO DAILY 03/06/17 [History] Gabapentin 800 mg PO TID 03/06/17 [History] HYDROcodone/APAP 7.5-325MG [[place] 7.5-325] 1 tab PO BID 04/21/17 [History] Ferrous Sulfate [Feosol] 325 mg PO DAILY 10/17/19 [History] Azithromycin [Zithromax] 500 mg PO DAILY@1800 4 Days #4 tab 10/19/19 [Rx] Follow up Appointment(s)/Referral(s): Rishi Pettit DO [Primary Care Provider] - 1-2 days Ambulatory/Diagnostic Orders: Basic Metabolic Panel [LAB.AMB] Time Frame: 3 Days, Location: None Selected Activity/Diet/Wound Care/Special Instructions: Activity Limited until follow-up Continue current low potassium diet Follow-up with primary care provider upon discharge Continue holding lisinopril, Lasix, hydrochlorothiazide, metformin until follow- up with primary care provider this week Avoid NSAIDs Continue monitoring blood sugars and keep a diary for primary care follow-up Discharge Disposition: HOME SELF-CARE
--- NOTE | 2019-10-19 15:22 | P.PN ---
Subjective Progress Note Date: 10/19/19 Principal diagnosis: This is a 64-year-old male who was recently admitted with severe renal failure and dehydration and is being closely monitored. Nephrology following. Creatinine on admission was 4.53 and is currently 0.73 and was maintained on IV hydration. Patient continues to have some generalized weakness and may need physical therapy evaluation. No reports of chest pain, shortness of breath, or palpitations. Patient is afebrile. No reports of nausea or vomiting and patient is tolerating diet. Active Medications Hydrocodone Bitart/Acetaminophen ([place] 7.5-325) 1 each PO BID [facility] Last Admin: 10/19/19 09:34 Dose: 1 each Documented by: Amitriptyline HCl (Elavil) 75 mg PO HS [facility] Last Admin: 10/18/19 20:00 Dose: 75 mg Documented by: Aspirin (Aspirin) 81 mg PO DAILY [facility] Last Admin: 10/19/19 09:33 Dose: 81 mg Documented by: Atorvastatin Calcium (Lipitor) 10 mg PO DAILY [facility] Last Admin: 10/19/19 09:33 Dose: 10 mg Documented by: Azithromycin (Zithromax) 500 mg PO DAILY@1800 [facility] Last Admin: 10/18/19 17:33 Dose: 500 mg Documented by: Gabapentin (Neurontin) 800 mg PO BID [facility] Last Admin: 10/19/19 09:34 Dose: 800 mg Documented by: Ceftriaxone Sodium 1 gm/ (Sodium Chloride) 50 mls @ 100 mls/hr IVPB Q24HR [facility] Stop: 10/20/19 09:01 Last Admin: 10/19/19 09:33 Dose: 100 mls/hr Documented by: Lamotrigine (Lamictal) 150 mg PO BID [facility] Last Admin: 10/19/19 09:34 Dose: 150 mg Documented by: Miscellaneous Information (Pneumonia Protocol Utilized) 1 each PO ONCE PRN PRN Reason: Per Protocol Potassium Chloride (K-Dur 10) 10 meq PO DAILY [facility] Last Admin: 10/19/19 09:34 Dose: 10 meq Documented by: Sertraline HCl (Zoloft) 100 mg PO DAILY [facility] Last Admin: 10/19/19 09:47 Dose: Not Given Documented by: Objective - Vital Signs Vital signs: Vital Signs Temp 97.7 F 10/19/19 11:37 Pulse 68 05/29/20 11:37 Resp 18 10/19/19 11:37 BP 145/79 10/19/19 11:37 Pulse Ox 98 10/19/19 11:37 Intake & Output 10/18/19 10/19/19 10/19/19 18:59 06:59 18:59 Intake Total 1900 800 480 Balance 1900 800 480 Weight 105.5 kg Intake: Intake, IV Titration 450 800 Amount Sodium Chloride 0.9% 1, 400 400 000 ml @ 50 mls/hr IV . Q20H [facility] Rx#:[id number] cefTRIAXone 1 gm In 50 400 Sodium Chloride 0.9% 50 ml @ 100 mls/hr IVPB Q24HR [facility] Rx#:[id number] Oral 1450 480 Other: Voiding Method Toilet Urinal # Voids 2 1 3 - Exam Gen: This is a 64-year-old male sitting up in bed, awake, alert and oriented 3, well-developed, well-nourished. Temp is 97.7F, pulse is 68, respirations are 18, blood pressure is 145/79, oxygen saturation is 98% on room air. HEENT: Head is atraumatic, normocephalic. Pupils equal, round. Sclerae is anicteric. NECK: Supple. No JVD. No lymphadenopathy. No thyromegaly. LUNGS: Manage breath sounds at the bases with no wheezing or rhonchi noted. No intercostal retractions. HEART: S1, S2 are muffled ABDOMEN: Soft. Obese. Bowel sounds are present. No masses. No tenderness. EXTREMITIES: No pedal edema. No calf tenderness. NEUROLOGICAL: Patient is awake, alert and oriented x3. Cranial nerves 2 through 12 are grossly intact. - Labs CBC & Chem 7: 10/19/19 05:25 10/19/19 05:25 Labs: Abnormal Lab Results - Last 24 Hours (Table) 10/19/19 10/19/19 Range/Units 05:25 05:25 WBC 10.8 H (3.8-10.6) k/uL Sodium 136 L (137-145) mmol/L Microbiology - Last 24 Hours (Table) 10/16/19 19:48 Blood Culture - Preliminary Blood No Growth after 48 hours Assessment and Plan Assessment: Severe acute renal failure, possibly prerenal acute tubular necrosis with acute renal failure, present on admission Severe dehydration, present on admission Generalized weakness. Covid 19 ruled out Hyponatremia Increased white blood count Bibasilar atelectasis History of diabetes mellitus type 2 Hypertension Hyperlipidemia history of rheumatoid arthritis history of traumatic brain injury History of peripheral neuropathy history of degenerative joint disease with chronic back pain and left shoulder pain History of cholecystectomy History of splenectomy anxiety, bipolar, depression, schizophrenia history of nicotine dependence History of alcohol use daily Plan: Recommend continue current medications, management, and symptomatic treatment. She to continue on empiric antibiotics in the form of ceftriaxone along with oral Zithromax. IV fluids have been discontinued. Patient is eating and drinking with no reports of nausea or vomiting. PT/OT to evaluate the patient. Further recommendations to follow. Possible discharge in 24 hours.
[2019-10-19] MEDS: AZITHROMYCIN 500 MG TAB PO SCH (17:31)
[2019-10-19 21:01] VITALS: RESP 16
[2019-10-19] MEDS: AMITRIPTYLINE HCL 25 MG TAB PO SCH (21:06)
[2019-10-20] MEDS: ATORVASTATIN 10 MG TAB PO SCH (08:42)
[2019-10-20] MEDS: GABAPENTIN 400 MG CAP PO SCH (08:43)
[2019-10-20] MEDS: POTASSIUM CHLORIDE ER 10 MEQ TAB.ER.PRT PO SCH (08:43)
[2019-10-20] MEDS: HYDROcodone/APAP 7.5-325MG 1 EACH TAB PO SCH (08:43)
[2019-10-20] MEDS: lamoTRIgine 100 MG TAB PO SCH (08:44)
[2019-10-20] MEDS: ASPIRIN 81 MG PO SCH (08:46)
[2019-10-20 11:53] VITALS: BP 148/83; PULSE 68; TEMP 97.8
--- NOTE | 2019-10-20 12:55 | PN ---
PROGRESS NOTE Patient is seen for followup for acute kidney injury. Renal function has improved. Serum creatinine is actually down to 0.73. Patient is doing well. He is possibly going home. On examination, blood pressure was 148/83, heart rate 68 per minute, he is afebrile. Examination of the heart S1, S2. Examination of the lungs, bilateral breath sounds are heard. Abdomen is soft, nontender. Examination of lower extremities shows no significant edema. LAB: Show sodium of 136, potassium 4.8, chloride 106, BUN 20, creatinine 0.73, hemoglobin 13.7 g/dL. ASSESSMENT: 1. Acute kidney injury, currently improved. 2. Presyncope associated with hypotension. 3. Type 2 diabetes. 4. Previous history of hypotension with normal cortisol level. 5. Hypokalemia, maintained on potassium supplementation. Potassium is actually at 4.8 now. PLAN: Consider discontinuation of potassium for now and patient will need to monitor labs as outpatient. MMODL / IJN: [id number] /
--- NOTE | 2019-10-20 19:07 | DS ---
DISCHARGE SUMMARY DATE OF SERVICE: 10/20/2019 HISTORY OF PRESENT ILLNESS: This 64-year-old gentleman admitted with severe acute renal failure was treated with IV fluids empirically. Patient improved significantly. Patient had suspected pneumonia. Patient given IV antibiotics. COVID-19 was ruled out. Patient improved significantly. Patient discharged in stable condition. Guarded prognosis. On exam, vitals are stable. Cardiovascular S1/S2l. Abdomen soft. Nervous system: No focal deficits. Please refer to the previous dictation for discharge medication list and as well as discharge diagnosis. Prognosis remained guarded throughout hospitalization but currently stable. Recommend close followup in the outpatient setting with Dr. Pettit. CORINAL / BARBIEN: [id number] /
== END 2019-10-20 15:13 | disposition home or self-care (01) | DRG 683 ==
LOC: EC 17:55 → 5NMEDONC 19:21 → 3SCARD 21:15 → OBSVTOIN 10-17 13:26 → 3SCARD 10-17 16:26
PROVIDERS: ADMIT Hospitalist; ATTEND Hospitalist
DX: N17.0 Acute kidney failure with tubular necrosis (principal); E87.1 Hypo-osmolality and hyponatremia; J98.11 Atelectasis; E11.42 Type 2 diabetes mellitus with diabetic polyneuropathy; E66.9 Obesity, unspecified; E78.5 Hyperlipidemia, unspecified; E86.0 Dehydration; E87.6 Hypokalemia; F17.200 Nicotine dependence, unspecified, uncomplicated; F20.9 Schizophrenia, unspecified; F32.9 Major depressive disorder, single episode, unspecified; F41.9 Anxiety disorder, unspecified; G89.29 Other chronic pain; I10 Essential (primary) hypertension; M06.9 Rheumatoid arthritis, unspecified; M47.9 Spondylosis, unspecified; M19.012 Primary osteoarthritis, left shoulder; R55 Syncope and collapse; R26.2 Difficulty in walking, not elsewhere classified; I95.9 Hypotension, unspecified; Z11.59 Encounter for screening for other viral diseases; Z68.29 Body mass index [BMI] 29.0-29.9, adult; Z79.82 Long term (current) use of aspirin; Z79.84 Long term (current) use of oral hypoglycemic drugs; Z79.899 Other long term (current) drug therapy; Z79.891 Long term (current) use of opiate analgesic; Z87.820 Personal history of traumatic brain injury; Z90.49 Acquired absence of other specified parts of digestive tract; Z90.81 Acquired absence of spleen; Z88.5 Allergy status to narcotic agent; Z88.0 Allergy status to penicillin; Z88.2 Allergy status to sulfonamides; Z88.8 Allergy status to other drugs, medicaments and biological substances
CPT/HCPCS: 36415; 70450; 71045; 78582; 80048; 80053; 81001; 82533; 82728; 83605; 83615; 83735; 84100; 84145; 84443; 85025; 85379; 85610; 85730; 86140; 87040; 87635; 93005; 96361; 96365; 96366; 96367; 99291

== ENCOUNTER → 2019-12-05 | Outpatient (CLI) | payer MEDICARE, OTHER ==
--- NOTE | 2019-12-05 14:38 | XR ---
EXAMINATION TYPE: XR chest 2V DATE OF EXAM: 12/05/2019 COMPARISON: Chest radiograph 10/17/2019. HISTORY: Atelectasis. Presurgical. TECHNIQUE: Frontal and lateral views of the chest are obtained. FINDINGS: There is no focal air space opacity, pleural effusion, or pneumothorax seen. The cardiac silhouette size is within normal limits. The osseous structures are intact. IMPRESSION: No acute cardiopulmonary process.
== END | disposition home or self-care (01) ==
LOC: RADXRMAIN 11:54
PROVIDERS: ATTEND Physician Assistant Medical
DX: J98.11 Atelectasis (principal)
CPT/HCPCS: 71046

== ENCOUNTER → 2020-05-26 | Outpatient (CLI) | payer MEDICARE, OTHER ==
[2020-05-26 14:21] LABS: Basophils # (A) 0.1 k/uL (0-0.2); Basophils % (A) 1 %; Eosinophils # (A) 0.2 k/uL (0-0.7); Eosinophils % (A) 2 %; HCT 48.4 % (39.0-53.0); HGB 15.8 gm/dL (13.0-17.5); Lymphocytes # (A) 4.2 k/uL (1.0-4.8); Lymphocytes % (A) 36 %; MCH 31.4 pg (25.0-35.0); MCHC 32.6 g/dL (31.0-37.0); MCV 96.3 fL (80.0-100.0); Mean Platelet Volume 7.7; Monocytes # (A) 0.6 k/uL (0-1.0); Monocytes % (A) 5 %; Neutrophils # (A) 6.3 k/uL (1.3-7.7); Neutrophils % (A) 54 %; Platelet Count 340 k/uL (150-450); RBC 5.03 m/uL (4.30-5.90); WBC 11.8 k/uL (3.8-10.6)
[2020-05-26 20:09] LABS: African American GFR (CKD) 105.7 (60.0-200.0); Albumin 4.7 g/dL (3.80-4.90); Albumin/Globulin Ratio 1.96 (1.60-3.17); Anion Gap 6.6 mmol/L (4.00-12.00); BUN/Creat Ratio 16.67 Ratio (12.00-20.00); Calcium 10.2 mg/dL (8.7-10.3); Carbon Dioxide 28.4 mmol/L (21.6-31.8); Chol/HDL Ratio 3.54; Globulin 2.4 g/dL (1.6-3.3); LDL Cholesterol,Calculated 70.6 mg/dL (0.0-131.0); Non-African American GFR(CKD) 91.2 (60.0-200.0); Potassium 5.2 mmol/L (3.5-5.5); Total Bilirubin 0.4 mg/dL (0.2-1.2); Total Protein 7.1 g/dL (6.2-8.2); VLDL Calculation 28.4 mg/dL (5.00-40.00)
== END | disposition home or self-care (01) ==
LOC: LABWHC1 13:53
PROVIDERS: ATTEND Physician Assistant Medical
DX: I10 Essential (primary) hypertension (principal); E78.2 Mixed hyperlipidemia; E11.42 Type 2 diabetes mellitus with diabetic polyneuropathy; Z12.5 Encounter for screening for malignant neoplasm of prostate
CPT/HCPCS: 36415; 80053; 80061; 82550; 84443; 85025

== ENCOUNTER → 2020-11-28 | Outpatient (CLI) | payer MEDICARE, OTHER | END | disposition home or self-care (01) ==

== ENCOUNTER 2020-12-06 13:37 | Emergency (ER) | payer MEDICARE, OTHER ==
[2020-12-06 13:52] VITALS: BP 122/71; PULSE 80; RESP 18; TEMP 98
--- NOTE | 2020-12-06 14:23 | XR ---
EXAMINATION TYPE: XR finger RT DATE OF EXAM: 12/06/2020 COMPARISON: NONE HISTORY: Trauma. Crush injury. TECHNIQUE: 3 views FINDINGS: There is minor spurring at the IP joints of the middle finger. I see no fracture nor disloc ation. There is spurring at the third MP joint. IMPRESSION: No fracture seen. Mild osteoarthritis.
--- NOTE | 2020-12-06 14:29 | ED ---
General Adult HPI - General Chief complaint: Extremity Injury, Upper Stated complaint: Finger Injury Time Seen by Provider: 12/06/20 13:55 Source: patient, RN notes reviewed Mode of arrival: ambulatory Limitations: physical limitation - History of Present Illness Initial comments: Patient is a pleasant 65-year-old male presenting to the emergency Department with right middle finger injury. Patient excellently shut his right mid her finger in a door 2 or 3 days ago. Patient has discomfort since that time. Patient does have blood under his right fingernail with diffuse swelling and discomfort. Patient has difficulty with flexion at the DIP. No history of injury to this finger previously however patient does have history of similar injury to different finger. - Related Data Home Medications Medication Instructions Recorded Confirmed Amitriptyline HCl [Elavil] 75 mg PO HS 07/25/14 10/17/19 Aspirin EC [Ecotrin Low Dose] 81 mg PO DAILY 07/25/14 10/17/19 Atorvastatin [Lipitor] 10 mg PO DAILY 07/25/14 10/17/19 Modafinil [Provigil] 100 mg PO DAILY 07/25/14 10/17/19 Multivitamin [Men's Multi-Vitamin] 1 tab PO DAILY 07/25/14 10/17/19 Potassium Chloride [K-Tab ER] 10 meq PO Q48H 07/25/14 10/17/19 Sertraline HCl [Zoloft] 100 mg PO DAILY 07/25/14 10/17/19 lamoTRIgine [LaMICtal] 150 mg PO BID 07/25/14 10/17/19 metFORMIN HCL [Glucophage] 500 mg PO DAILY 07/25/14 10/17/19 Fish Oil/Dha/Epa [Fish Oil 1,200 1 cap PO DAILY 03/06/17 10/17/19 mg Fish Oil] Gabapentin 800 mg PO TID 03/06/17 10/17/19 HYDROcodone/APAP 7.5-325MG [[place] 1 tab PO BID 04/21/17 10/17/19 7.5-325] Ferrous Sulfate [Feosol] 325 mg PO DAILY 10/17/19 10/17/19 Previous Rx's Medication Instructions Recorded Azithromycin [Zithromax] 500 mg PO DAILY@1800 4 Days #4 tab 10/19/19 Allergies Allergy/AdvReac Type Severity Reaction Status Date / Time codeine Allergy Hallucinati Verified 12/06/20 13:53 ons donepezil HCl [From Aricept] Allergy Hallucinati Verified 12/06/20 13:53 ons ibuprofen Allergy Anaphylaxis Verified 12/06/20 13:53 Penicillins Allergy Unknown Verified 12/06/20 13:53 Childhood Sulfa (Sulfonamide Allergy Unknown Verified 12/06/20 13:53 Antibiotics) Childhood Review of Systems ROS Statement: Those systems with pertinent positive or pertinent negative responses have been documented in the HPI. ROS Other: All systems not noted in ROS Statement are negative. Past Medical History Past Medical History: Diabetes Mellitus, Hyperlipidemia, Hypertension, Rheumatoid Arthritis (RA) Additional Past Medical History / Comment(s): brain injury, neuropathy, chronic back and shoulder pain History of Any Multi-Drug Resistant Organisms: None Reported Past Surgical History: Cholecystectomy, Hernia Repair Additional Past Surgical History / Comment(s): splenectomy, neck surg, left eye Past Psychological History: Anxiety, Bipolar, Depression, Schizophrenia Smoking Status: Current every day smoker Past Alcohol Use History: Daily Past Drug Use History: None Reported General Exam Limitations: physical limitation General appearance: alert, in no apparent distress Head exam: Present: normocephalic Neck exam: Present: normal inspection. Absent: tenderness Respiratory exam: Present: normal lung sounds bilaterally Cardiovascular Exam: Present: regular rate, normal rhythm Extremities exam: Present: other (Right middle finger with tenderness and swelling near the DIP and distally. Fingernail with blood underneath and mild racing of the. Nail. Distal sensation is intact. Patient does have difficulty with flexion at the DIP) Neurological exam: Present: alert Psychiatric exam: Present: normal affect, normal mood Skin exam: Present: normal color Course Vital Signs 12/06/20 13:48 Temperature 98 F Pulse Rate 80 Respiratory 18 Rate Blood Pressure 122/71 O2 Sat by Pulse 99 Oximetry Procedures - Procedures Initial comment: Trephination: Verbal consent given Right middle fingernail cleansed with Betadine and washed off with water. 2 small holes placed in the nail using electrocautery with release of blood underneath. - Orthopedic Splinting/Casting Injury #1 Side: right Upper Extremity Injury Location: finger (Using finger splint, right middle finger) Medical Decision Making - Medical Decision Making Patient is advised that he will lose his fingernail. Patient is also advised to follow-up with orthopedics. - Radiology Data Radiology results: image reviewed (No evidence of fracture) Disposition Clinical Impression: Subungual hematoma Disposition: HOME SELF-CARE Condition: Stable Instructions (If sedation given, give patient instructions): Subungual Hematoma (ED) Additional Instructions: Please follow-up with primary care physician in the next couple days for recheck. Please also follow-up with orthopedics to evaluate for possible tendon injury. Use splint provided. Return for increased pain, swelling, worsening symptoms or other concerns. Is patient prescribed a controlled substance at d/c from ED?: No Referrals: Rishi Pettit DO [Primary Care Provider] - 1-2 days Rishi Rush DO [Doctor of Osteopathic Medicine] - 1-2 days Time of Disposition: 14:29
== END 2020-12-06 14:41 | disposition home or self-care (01) ==
LOC: EC 13:37
DX: S60.131A Contusion of right middle finger with damage to nail, initial encounter (principal); E11.9 Type 2 diabetes mellitus without complications; I10 Essential (primary) hypertension; M06.9 Rheumatoid arthritis, unspecified; E78.5 Hyperlipidemia, unspecified; F17.200 Nicotine dependence, unspecified, uncomplicated; Z88.5 Allergy status to narcotic agent; Z88.6 Allergy status to analgesic agent; Z88.0 Allergy status to penicillin; Z88.2 Allergy status to sulfonamides; Z88.8 Allergy status to other drugs, medicaments and biological substances; Z79.899 Other long term (current) drug therapy; Z79.82 Long term (current) use of aspirin; Z79.84 Long term (current) use of oral hypoglycemic drugs; W23.0XXA Caught, crushed, jammed, or pinched between moving objects, initial encounter
CPT/HCPCS: 11740; 99283

== ENCOUNTER → 2021-02-28 | Outpatient (CLI) | payer MEDICARE, OTHER ==
[2021-02-28 17:17] LABS: Basophils # (A) 0.13 X 10*3/uL (0.00-0.10); Eosinophils # (A) 0.48 X 10*3/uL (0.04-0.35); Eosinophils % (A) 3.7 %; HCT 46.2 % (39.6-50.0); HGB 15.5 g/dL (13.0-17.0); Lymphocytes # (A) 3.79 X 10*3/uL (0.90-5.00); Lymphocytes % (A) 29.2 %; MCHC 33.5 g/dL (32.0-37.0); MCV 98.5 fL (80.0-97.0); Mean Platelet Volume 10.7 fL (9.5-12.2); Monocytes # (A) 1.18 X 10*3/uL (0.20-1.00); Monocytes % (A) 9.1 %; Neutrophils # (A) 7.34 X 10*3/uL (1.80-7.70); Neutrophils % (A) 56.5 %; Platelet Count 386 X 10*3/uL (140-440); RBC 4.69 X 10*6/uL (4.40-5.60); RDW 14.3 % (11.5-14.5); WBC 12.98 X 10*3/uL (4.50-10.00)
[2021-02-28 20:57] LABS: African American GFR (CKD) 110.7 (60.0-200.0); Albumin 4.5 g/dL (3.8-4.9); Albumin/Globulin Ratio 1.65 (1.60-3.17); Anion Gap 14.4 mmol/L (4.00-12.00); BUN/Creat Ratio 11.62 Ratio (12.00-20.00); Blood Urea Nitrogen 9.2 mg/dL (9.0-27.0); Calcium 10.1 mg/dL (8.7-10.3); Carbon Dioxide 25.5 mmol/L (21.6-31.8); Chol/HDL Ratio 3.73 Ratio; Globulin 2.8 g/dL (1.6-3.3); HDL Cholesterol 41.3 mg/dL (40.00-60.00); LDL Cholesterol,Calculated 82.7 mg/dL (0.0-131.0); Non-African American GFR(CKD) 95.5 (60.0-200.0); Total Bilirubin 0.3 mg/dL (0.30-1.20); Total Protein 7.3 g/dL (6.2-8.2)
== END | disposition home or self-care (01) ==
LOC: LABWHC1 11:04
PROVIDERS: ATTEND Physician Assistant Medical
DX: Z12.5 Encounter for screening for malignant neoplasm of prostate (principal); I10 Essential (primary) hypertension; E78.2 Mixed hyperlipidemia; E11.42 Type 2 diabetes mellitus with diabetic polyneuropathy; E55.9 Vitamin D deficiency, unspecified
CPT/HCPCS: 36415; 80053; 80061; 82306; 82550; 84443; 85025

== ENCOUNTER → 2021-05-22 | Outpatient (CLI) | payer MEDICARE, OTHER ==
[2021-05-22 22:31] LABS: Urine Alcohol Negative (Negative); Urine Barbiturate Negative (Negative); Urine Cocaine Negative (Negative); Urine Methadone Negative (Negative); Urine Opiates Positive (Negative); Urine Phencyclidine Negative (Negative)
== END | disposition home or self-care (01) ==
LOC: LABMAIN 13:03
DX: M54.16 Radiculopathy, lumbar region (principal); Z79.891 Long term (current) use of opiate analgesic
CPT/HCPCS: 80306

== ENCOUNTER 2021-05-23 01:32 | Emergency (ER) | payer MEDICARE, OTHER ==
[2021-05-23 02:35] VITALS: RESP 18
--- NOTE | 2021-05-23 02:36 | ED ---
General Adult HPI - General Chief complaint: Chest Pain Stated complaint: rib pain Source: patient, EMS, RN notes reviewed Mode of arrival: EMS Limitations: no limitations - History of Present Illness Initial comments: This a 65-year-old male presents emergency Department with chief complaint of rib pain. Patient states that he had some discomfort after sneezing a few days ago but states that he has states that today presents for right rib pain. Patient reports no fevers or chills nonproductive cough. Patient states he has no falls no other trauma. - Related Data Home Medications Medication Instructions Recorded Confirmed Amitriptyline HCl [Elavil] 75 mg PO HS 07/25/14 10/17/19 Aspirin EC [Ecotrin Low Dose] 81 mg PO DAILY 07/25/14 10/17/19 Atorvastatin [Lipitor] 10 mg PO DAILY 07/25/14 10/17/19 Modafinil [Provigil] 100 mg PO DAILY 07/25/14 10/17/19 Multivitamin [Men's Multi-Vitamin] 1 tab PO DAILY 07/25/14 10/17/19 Potassium Chloride [K-Tab ER] 10 meq PO Q48H 07/25/14 10/17/19 Sertraline HCl [Zoloft] 100 mg PO DAILY 07/25/14 10/17/19 lamoTRIgine [LaMICtal] 150 mg PO BID 07/25/14 10/17/19 metFORMIN HCL [Glucophage] 500 mg PO DAILY 07/25/14 10/17/19 Fish Oil/Dha/Epa [Fish Oil 1,200 1 cap PO DAILY 03/06/17 10/17/19 mg Fish Oil] Gabapentin 800 mg PO TID 03/06/17 10/17/19 HYDROcodone/APAP 7.5-325MG [[place] 1 tab PO BID 04/21/17 10/17/19 7.5-325] Ferrous Sulfate [Feosol] 325 mg PO DAILY 10/17/19 10/17/19 Previous Rx's Medication Instructions Recorded Azithromycin [Zithromax] 500 mg PO DAILY@1800 4 Days #4 tab 10/19/19 Azithromycin [Zithromax Z-pack (6 0 mg PO DIRECTED #1 packet 05/23/21 tabs)] Cyclobenzaprine [Flexeril] 10 mg PO TID PRN #15 tab 05/23/21 Allergies Allergy/AdvReac Type Severity Reaction Status Date / Time codeine Allergy Hallucinati Verified 05/23/21 02:35 ons donepezil HCl [From Aricept] Allergy Hallucinati Verified 05/23/21 02:35 ons ibuprofen Allergy Anaphylaxis Verified 05/23/21 02:35 Penicillins Allergy Unknown Verified 05/23/21 02:35 Childhood Sulfa (Sulfonamide Allergy Unknown Verified 05/23/21 02:35 Antibiotics) Childhood Review of Systems ROS Statement: Those systems with pertinent positive or pertinent negative responses have been documented in the HPI. ROS Other: All systems not noted in ROS Statement are negative. Past Medical History Past Medical History: Diabetes Mellitus, Hyperlipidemia, Hypertension, Rheumatoid Arthritis (RA) Additional Past Medical History / Comment(s): brain injury, neuropathy, chronic back and shoulder pain History of Any Multi-Drug Resistant Organisms: None Reported Past Surgical History: Cholecystectomy, Hernia Repair Additional Past Surgical History / Comment(s): splenectomy, neck surg, left eye Past Psychological History: Anxiety, Bipolar, Depression, Schizophrenia Smoking Status: Current every day smoker Past Alcohol Use History: Daily Past Drug Use History: None Reported General Exam Limitations: no limitations General appearance: alert, in no apparent distress Head exam: Present: atraumatic, normocephalic, normal inspection Eye exam: Present: normal appearance, PERRL, EOMI. Absent: scleral icterus, conjunctival injection, periorbital swelling ENT exam: Present: normal exam, normal oropharynx, mucous membranes moist Neck exam: Present: normal inspection, full ROM. Absent: tenderness, meningismus, lymphadenopathy Respiratory exam: Present: normal lung sounds bilaterally, chest wall tenderness (Right anterior lateral). Absent: respiratory distress, wheezes, rales, rhonchi, stridor Cardiovascular Exam: Present: regular rate, normal rhythm, normal heart sounds. Absent: systolic murmur, diastolic murmur, rubs, gallop, clicks Course Vital Signs 05/23/21 02:32 Temperature 97.6 F Pulse Rate 78 Respiratory 18 Rate Blood Pressure 167/86 O2 Sat by Pulse 93 L Oximetry Medical Decision Making - Medical Decision Making Patient's chest x-ray shows evidence of pneumonia patient states he's slight cough though he has rib tenderness on the right consistent with costal injury. This is reproducible pain worse with movement. Patient will be given pain relief we discharged in stable condition with oral antibiotics. Disposition Clinical Impression: Rib pain on right side, Chest wall muscle strain, Acute costochondritis, Pneumonia Disposition: HOME SELF-CARE Condition: Stable Instructions (If sedation given, give patient instructions): Costochondritis (ED), Chest Pain (ED) Additional Instructions: Please return to the Emergency Department if symptoms worsen or any other concerns. Prescriptions: Cyclobenzaprine [Flexeril] 10 mg PO TID PRN #15 tab PRN Reason: Muscle Spasm Azithromycin [Zithromax Z-pack (6 tabs)] 0 mg PO DIRECTED #1 packet Is patient prescribed a controlled substance at d/c from ED?: No Referrals: Rishi Pettit DO [Primary Care Provider] - 1-2 days Time of Disposition: 03:50
--- NOTE | 2021-05-23 03:06 | XR ---
EXAMINATION TYPE: XR ribs RT w pa chest xray DATE OF EXAM: 05/23/2021 COMPARISON: Chest x-ray 12/05/2019 HISTORY: Pain. TECHNIQUE: 5 views FINDINGS: Heart and mediastinum are normal. There is a rounded 2 cm infiltrate over the left lower lo be. The right lung is clear. There is no pleural effusion or pneumothorax. The right ribs appear inta ct. There is no sign of a rib fracture. There are clips from cholecystectomy. IMPRESSION: No rib fracture. Normal heart. There is a small rounded infiltrate left lower lobe that a ppears new compared to old exam. Follow-up recommended.
[2021-05-23] MEDS ORDERED: HYDROmorphone 1 MG/ML 1 ML SYRINGE IM STA (03:46)
[2021-05-23] MEDS ORDERED: AZITHROMYCIN 250 MG TAB PO STA (03:46)
[2021-05-23] MEDS ORDERED: CYCLOBENZAPRINE 10 MG TAB PO STA (03:46)
[2021-05-23 04:23] VITALS: BP 161/85; PULSE 74; TEMP 98.6
== END 2021-05-23 04:27 | disposition home or self-care (01) ==
LOC: EC 01:32
DX: S29.011A Strain of muscle and tendon of front wall of thorax, initial encounter (principal); M94.0 Chondrocostal junction syndrome [Tietze]; J18.9 Pneumonia, unspecified organism; F17.200 Nicotine dependence, unspecified, uncomplicated; E11.9 Type 2 diabetes mellitus without complications; I10 Essential (primary) hypertension; E78.5 Hyperlipidemia, unspecified; Z88.6 Allergy status to analgesic agent; Z88.0 Allergy status to penicillin; Z88.2 Allergy status to sulfonamides; Z88.5 Allergy status to narcotic agent; Z79.82 Long term (current) use of aspirin; Z79.899 Other long term (current) drug therapy; Z79.84 Long term (current) use of oral hypoglycemic drugs; X58.XXXA Exposure to other specified factors, initial encounter
CPT/HCPCS: 71101; 99284; 96372; J1170

== ENCOUNTER → 2021-10-23 | Outpatient (CLI) | payer MEDICARE, OTHER ==
--- NOTE | 2021-10-23 12:26 | CTL ---
EXAMINATION TYPE: CT Low Dose Lung DATE OF EXAM ORDERED: 10/23/2021 HISTORY: Long-term tobacco use. Lung cancer screening CT DLP: 127.[address] CTDI: 3.5 mGy Automated exposure control for dose reduction was used. SCREENING VISIT: Baseline COMPARISON: None TECHNIQUE: Low dose computed tomography scan was performed through the chest at 1 mm thick sections a nd reconstructed images in multiple planes at 1 mm and [address] DIAGNOSTIC QUALITY: Satisfactory FINDINGS: LUNG NODULES: Present, detailed below: [id number] linear scarring in the anterior inferior ling sang has slightly more nodular appearance on coronal and sagittal images measuring 1.6 x 1.5 cm axial image 196. I strongly favor rounded atelectasis or nodular scarring, true pulmonary nodule not entire ly excluded. LUNGS: COPD: Severity: Mild to moderate Fibrosis: Severity: Additional focal curvilinear scarring in the right middle lobe abutting the peric ardial fat pad Lymph nodes: Nonspecific prominent 1.5 x 1.0 cm paratracheal lymph node axial image 21. Other findings: Elevated left hemidiaphragm. RIGHT PLEURAL SPACE: Effusion: None Calcification: None Thickening: None Pneumothorax: None LEFT PLEURAL SPACE: Effusion: None Calcification: None Thickening: None Pneumothorax: None HEART: Heart Size: Normal Coronary Calcification: Moderate 3 vesselNoneicardial Effusion: None OTHER FINoneGS: Upper abdoNone Benign calcification in the upper liver posteriorly axial image 49. Cholecystectomy cl ips. Anterior coils from ventral wall hernia repair surgery are partially imaged. Bony thorax: Slight scoliotic curvature with moderate multilevel spurring and disc space narrowing, t here is endplate sclerosis involving the T9-T10 level. SNoneclaviculNoneegion: None Ot : Prominent main pulmonary artery suggests underlying pulmonary hypertension. IMPRESSION: Mild to moderate underlying emphysematous change. Mild scarring with 1.6 cm nodular c omponent in the lingula. True pulmonary nodule not entirely excluded. CT LUNG RAD AND CT RECOMMENDATION: Consider PET/CT. Lung-Rad 4A Suspicious: Follow-up 3 month LDCT or PET/CT may be used when there is a > 8 mm solid com ponent.: S Modifier (other clinically nificant findings): None.
== END | disposition home or self-care (01) ==
LOC: RADCTMAIN 09:04
PROVIDERS: ATTEND Family Medicine
DX: Z12.2 Encounter for screening for malignant neoplasm of respiratory organs (principal); F17.210 Nicotine dependence, cigarettes, uncomplicated
CPT/HCPCS: 71271

== ENCOUNTER → 2021-11-20 | Outpatient (CLI) | payer MEDICARE, OTHER ==
[2021-11-20 14:19] LABS: Basophils % (A) 0.7 %; Eosinophils # (A) 0.55 X 10*3/uL (0.04-0.35); HCT 46.3 % (39.6-50.0); HGB 15.1 g/dL (13.0-17.0); Immature Grans, Automated 0.3 %; Lymphocytes # (A) 3.44 X 10*3/uL (0.90-5.00); Lymphocytes % (A) 25.1 %; MCH 31.7 pg (27.0-32.0); MCHC 32.6 g/dL (32.0-37.0); MCV 97.3 fL (80.0-97.0); Mean Platelet Volume 10.9 fL (9.5-12.2); Monocytes % (A) 7.3 %; NRBC Per 100 WBC 0 /100 WBCS (0.0-0.0); Neutrophils # (A) 8.56 X 10*3/uL (1.80-7.70); Neutrophils % (A) 62.6 %; Platelet Count 355 X 10*3/uL (140-440); RBC 4.76 X 10*6/uL (4.40-5.60); RDW 14.3 % (11.5-14.5); WBC 13.69 X 10*3/uL (4.50-10.00)
[2021-11-20 15:11] LABS: ALT 21 U/L (10-49); AST 17 U/L (14-35); African American GFR (CKD) 104.2 (60.0-200.0); Albumin 4.1 g/dL (3.8-4.9); Albumin/Globulin Ratio 1.58 (1.60-3.17); Alkaline Phosphatase 148 U/L (41-126); BUN/Creat Ratio 20.11 Ratio (12.00-20.00); Blood Urea Nitrogen 18.1 mg/dL (9.0-27.0); Calcium 9.3 mg/dL (8.7-10.3); Carbon Dioxide 25.4 mmol/L (20.0-27.5); Chloride 101 mmol/L (96-109); Chol/HDL Ratio 3.67 Ratio; Globulin 2.6 g/dL (1.6-3.3); Glucose 167 mg/dL (70-110); Non-African American GFR(CKD) 89.9 (60.0-200.0); Potassium 4.2 mmol/L (3.5-5.5); Sodium 137 mmol/L (135-145); Total Protein 6.7 g/dL (6.2-8.2)
== END | disposition home or self-care (01) ==
LOC: LABWHC1 09:00
PROVIDERS: ATTEND Physician Assistant Medical
DX: Z12.5 Encounter for screening for malignant neoplasm of prostate (principal); D64.9 Anemia, unspecified; E11.65 Type 2 diabetes mellitus with hyperglycemia; E78.2 Mixed hyperlipidemia; E83.52 Hypercalcemia; F10.10 Alcohol abuse, uncomplicated; F31.9 Bipolar disorder, unspecified; G40.909 Epilepsy, unspecified, not intractable, without status epilepticus
CPT/HCPCS: 36415; 80053; 80061; 84153; 84443; 85025

== ENCOUNTER → 2021-12-10 | Outpatient (CLI) | payer MEDICARE, OTHER ==
[2021-12-10 10:26] LABS: African American GFR (CKD) >90 (>60 ml/min/1.73 sqM); Blood Urea Nitrogen 22 mg/dL (9-20); Non-African American GFR(CKD) >90 (>60 ml/min/1.73 sqM)
--- NOTE | 2021-12-10 14:30 | CT ---
EXAMINATION TYPE: CT urogram wo/w con CT DLP: 3046.6 mGycm, Automated exposure control for dose reduction was used. DATE OF EXAM: 12/10/2021 11:15 AM COMPARISON: CLINICAL INDICATION:Male, 66 years old with history of R31.1 MICRO HEMATURIA; , Microscopic hematuria TECHNIQUE: Urogram with imaging of the abdomen and pelvis. Coronal and sagittal reformats were performed. 2D and 3D reconstructions are performed to assist visualization of the urinary tract on a separate workstat ion. Contrast used:100 mL of Isovue 370 without and with IV Contrast, Oral contrast used: None. FINDINGS: GENITOURINARY: RIGHT KIDNEY AND URETER: Multiple calculi measuring up to 9 mm.. No hydronephrosis or hydroureter. No renal mass or other lesions. No urothelial lesions: no filling defect, dilation, stricture or wall t hickening. LEFT KIDNEY AND URETER: No calculi. No hydronephrosis or hydroureter. No renal mass or other lesions. No urothelial lesions: no filling defect, dilation, stricture or wall thickening. URINARY BLADDER: distended, no calculi, mass or other lesions. REPRODUCTIVE: Unremarkable. ABDOMEN LIVER: Calcified granuloma noted. GALLBLADDER AND BILE DUCTS: Gallbladder surgically absent. PANCREAS: Unremarkable. SPLEEN: Splenosis. ADRENAL GLANDS: Unremarkable. STOMACH AND BOWEL: No evidence of bowel obstruction. PERITONEUM: No evidence of pneumoperitoneum, free fluid, or adenopathy. VASCULATURE: Atherosclerotic calcifications are present throughout the abdominal aorta and its branch es. MUSCULOSKELETAL: Multilevel degenerative changes are present throughout the thoracolumbar spine. Grad e 1 anterolisthesis of L4 and L5 with bilateral spondylolysis. There is disc uncovering. Additional m ultilevel disc bulging and osteophyte formation. SOFT TISSUE/ABDOMINAL WALL: Anterior abdominal wall postsurgical changes. Fatty changes to the bilate ral inguinal canals. Ventral wall repair changes with persistent hernia with loops of large bowel con tained within best appreciated on axial imaging. LOWER CHEST: Streaky atelectasis in the lung bases. IMPRESSION: 1. No evidence of urolithiasis or renal/urothelial neoplasm. 2. Right nonobstructing renal calculi. No evidence of hydronephrosis. 3. Persistent ventral wall hernia portions of large bowel, No evidence of bowel obstruction or wilmer ulation. 4. Fatty changes to the bilateral inguinal canals. 5. Moderate disc degeneration changes of the spine with grade 1 anterolisthesis of L4 and L5 with danika ateral spondylolysis. Multilevel disc bulging also present.
== END | disposition home or self-care (01) ==
LOC: RADCTMAIN 09:01
PROVIDERS: ATTEND Urology
DX: R31.1 Benign essential microscopic hematuria (principal)
CPT/HCPCS: 82565; 84520; 74178; 36415; 74400; Q9967

== ENCOUNTER 2022-01-22 16:31 | Emergency (ER) | payer MEDICARE, OTHER ==
[2022-01-22 16:49] VITALS: TEMP 98.5
--- NOTE | 2022-01-22 16:54 | ED ---
Wound/Laceration HPI - General Chief Complaint: Wound/Laceration Stated Complaint: L leg lac. 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 He reports that he immediately applied pressure to stop the bleeding. He denies the blade becoming embedded into any of the lacerations. He is unsure of his tetanus status. He has a past medical history significant for diabetes, hypertension, hyperlipidemia and rheumatoid arthritis. He denies any other complaints or concerns at this time. - Related Data Home Medications Medication Instructions Recorded Confirmed Amitriptyline HCl [Elavil] 75 mg PO HS 07/25/14 10/17/19 Aspirin EC [Ecotrin Low Dose] 81 mg PO DAILY 07/25/14 10/17/19 Atorvastatin [Lipitor] 10 mg PO DAILY 07/25/14 10/17/19 Multivitamin [Men's Multi-Vitamin] 1 tab PO DAILY 07/25/14 10/17/19 Potassium Chloride [K-Tab ER] 10 meq PO Q48H 07/25/14 10/17/19 Sertraline HCl [Zoloft] 100 mg PO DAILY 07/25/14 10/17/19 lamoTRIgine [LaMICtal] 150 mg PO BID 07/25/14 10/17/19 metFORMIN HCL [Glucophage] 500 mg PO DAILY 07/25/14 10/17/19 modafiniL [Provigil] 100 mg PO DAILY 07/25/14 10/17/19 Fish Oil/Dha/Epa [Fish Oil 1,200 1 cap PO DAILY 03/06/17 10/17/19 mg Fish Oil] Gabapentin 800 mg PO TID 03/06/17 10/17/19 HYDROcodone/APAP 7.5-325MG [[place] 1 tab PO BID 04/21/17 10/17/19 7.5-325] Ferrous Sulfate [Feosol] 325 mg PO DAILY 10/17/19 10/17/19 Previous Rx's Medication Instructions Recorded Azithromycin [Zithromax] 500 mg PO DAILY@1800 4 Days #4 tab 10/19/19 Azithromycin [Zithromax Z-pack (6 0 mg PO DIRECTED #1 packet 05/23/21 tabs)] Cyclobenzaprine [Flexeril] 10 mg PO TID PRN #15 tab 05/23/21 clindamycin HCL [Cleocin] 300 mg PO Q6HR 3 Days #12 cap 01/22/22 Allergies Allergy/AdvReac Type Severity Reaction Status Date / Time codeine Allergy Hallucinati Verified 01/22/22 16:49 ons donepezil HCl [From Aricept] Allergy Hallucinati Verified 01/22/22 16:49 ons ibuprofen Allergy Anaphylaxis Verified 01/22/22 16:49 Penicillins Allergy Unknown Verified 01/22/22 16:49 Childhood Sulfa (Sulfonamide Allergy Unknown Verified 01/22/22 16:49 Antibiotics) Childhood Review of Systems ROS Statement: Those systems with pertinent positive or pertinent negative responses have been documented in the HPI. ROS Other: All systems not noted in ROS Statement are negative. Past Medical History Past Medical History: Diabetes Mellitus, Hyperlipidemia, Hypertension, Rheumatoid Arthritis (RA) Additional Past Medical History / Comment(s): brain injury, neuropathy, chronic back and shoulder pain History of Any Multi-Drug Resistant Organisms: None Reported Past Surgical History: Cholecystectomy, Hernia Repair Additional Past Surgical History / Comment(s): splenectomy, neck surg, left eye Past Psychological History: Anxiety, Bipolar, Depression, Schizophrenia Smoking Status: Current every day smoker Past Alcohol Use History: Daily Past Drug Use History: None Reported General Exam Limitations: no limitations General appearance: alert, in no apparent distress Head exam: Present: atraumatic, normocephalic, normal inspection Eye exam: Present: normal appearance, PERRL, EOMI. Absent: scleral icterus, conjunctival injection, periorbital swelling ENT exam: Present: normal exam Neck exam: Present: normal inspection Respiratory exam: Absent: respiratory distress, accessory muscle use Left Lower Leg exam: Present: full ROM, tenderness, laceration (Multiple 3 deeper requiring suture closure. 2 surface lacerations and scattered abrasions noted.). Absent: dislocation Neurovascular tendon exam: Present: no vascular compromise Gait: observed and limited by pain Back exam: Present: normal inspection Neurological exam: Present: alert, oriented X3, CN II-XII intact Psychiatric exam: Present: normal affect, normal mood Course Vital Signs 01/22/22 01/22/22 16:45 18:53 Temperature 98.5 F Pulse Rate 90 77 Respiratory 18 16 Rate Blood Pressure 109/65 132/69 O2 Sat by Pulse 95 96 Oximetry Procedures - Laceration Laceration #1 Consent Obtained: verbal consent Indication: laceration Site: lower extremity Size (cm): 4 Description: linear Depth: simple, single layer Anesthetic Used: lidocaine 1% Anesthesia Technique: local infiltration Pre-repair: wound explored, irrigated extensively Type of Sutures: nylon Size of Sutures: 4-0 Number of Sutures: 6 Technique: simple, interrupted Patient Tolerated Procedure: well, no complications Laceration #2 Consent Obtained: verbal consent Indication: laceration Site: lower extremity Size (cm): 3 Description: linear Depth: simple, single layer Anesthetic Used: lidocaine 1% Anesthesia Technique: local infiltration Pre-repair: wound explored, extensive debridement, wound margins revised Size of Sutures: 4-0 Number of Sutures: 5 Patient Tolerated Procedure: well, no complications Laceration #3 Consent Obtained: verbal consent Indication: laceration Site: lower extremity Size (cm): 2 (2.5) Description: linear Depth: simple, single layer Anesthetic Used: lidocaine 1% Anesthesia Technique: local infiltration Pre-repair: wound explored, irrigated extensively Type of Sutures: nylon Size of Sutures: 4-0 Number of Sutures: 4 Technique: simple, interrupted Patient Tolerated Procedure: well, no complications Medical Decision Making - Medical Decision Making 66-year-old male presents with lacerations to lower extremity from a 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 Unknown tetanus status. Unknown debris in wound. Will update tetanus and obtain x-ray to rule out any foreign object. After x-ray will cleanse wounds and closed. X-ray negative for foreign bodies. Wounds extensively irrigated and second wound margins mildly revised due to burnt tissue from that. Sutures placed in lacerations 3. Area cleansed well. Procedure tolerated well. Localized wound care and suture care discussed with patient. Advised to follow-up with primary care provider or return to emergency room for suture removal in 7-10 days. Will give short course of clindamycin for prophylaxis in the setting of penicillin and sulfa allergy. Case discussed with Dr. Issa. - Radiology Data Radiology results: report reviewed, image reviewed X-ray negative left tibia and fibula exam. No fracture no foreign body. Disposition Clinical Impression: Laceration Disposition: HOME SELF-CARE Condition: Stable Instructions (If sedation given, give patient instructions): Care For Your Stitches (ED), Laceration (ED) Additional Instructions: Please complete course of antibiotics to prevent infection. Monitor lacerations for signs and symptoms of infection. Please cover wound is known to her in debris exposure. Please follow-up with your primary care provider for suture removal in 7-10 days. Your tetanus vaccine was updated during your states today and is current for the next 10 years. Please return to the Emergency Department if symptoms worsen or any other concerns. Prescriptions: clindamycin HCL [Cleocin] 300 mg PO Q6HR 3 Days #12 cap Is patient prescribed a controlled substance at d/c from ED?: No Referrals: Rishi Pettit DO [Primary Care Provider] - 1-2 days Time of Disposition: 18:34
[2022-01-22] MEDS ORDERED: LIDOCAINE 1% INJ 10MG/ML (20 ML MDV) SQ STA (17:08)
[2022-01-22] MEDS ORDERED: DIPH,PERTUS(ACELL)TETVAC-LF 0.5 ML VIAL IM ONE (17:09)
--- NOTE | 2022-01-22 17:31 | XR ---
EXAMINATION TYPE: XR tibia fibula LT DATE OF EXAM: 01/22/2022 COMPARISON: NONE HISTORY: Laceration TECHNIQUE: 4 views FINDINGS: There is a left knee prosthesis. Components are in anatomic position the ankle joint is int act. No fracture seen. There is no evidence of a foreign body. IMPRESSION: Negative left tibia and fibula exam. No fracture. No foreign body.
[2022-01-22 18:55] VITALS: BP 132/69; PULSE 77; RESP 16
== END 2022-01-22 18:54 | disposition home or self-care (01) ==
LOC: EC 16:31
DX: S81.812A Laceration without foreign body, left lower leg, initial encounter (principal); E11.9 Type 2 diabetes mellitus without complications; E78.5 Hyperlipidemia, unspecified; I10 Essential (primary) hypertension; F17.200 Nicotine dependence, unspecified, uncomplicated; Z23 Encounter for immunization; Z88.5 Allergy status to narcotic agent; Z88.6 Allergy status to analgesic agent; Z88.0 Allergy status to penicillin; Z88.2 Allergy status to sulfonamides; W19.XXXA Unspecified fall, initial encounter
CPT/HCPCS: 73590; 90715; 12004; 90471; 99283; J2001

== ENCOUNTER → 2022-04-20 | Outpatient (CLI) | payer MEDICARE, OTHER ==
--- NOTE | 2022-04-20 10:38 | CTL ---
EXAMINATION TYPE: CT Low Dose Lung DATE OF EXAM ORDERED: 04/20/2022 HISTORY: Long-term tobacco use. Lung cancer screening. And prior abnormal study. CT DLP: 115.[address] CTDI: 3.1 mGy Automated exposure control for dose reduction was used. SCREENING VISIT: First after baseline COMPARISON: Prior study October 23, 2021 TECHNIQUE: Low dose computed tomography scan was performed through the chest at 1 mm thick sections a nd reconstructed images in multiple planes at 1 mm and [address] DIAGNOSTIC QUALITY: Satisfactory FINDINGS: LUNG NODULES: Present, detailed below: Rjme-to-ajtottlv focal linear scarring in the anterior inferio r lingula has slightly more nodular appearance on coronal and sagittal images measuring near 1.6 x 1. 2 cm axial image 198. No significant change favoring focal scarring over true pulmonary nodule. No new greater than 6 mm pulmonary nodules. LUNGS: COPD: Severity: Mild to moderate Fibrosis: Severity: Additional focal curvilinear scarring in the right middle lobe abutting the peric ardial fat pad is redemonstrated Lymph nodes: Stable prominent 1.5 x 1.0 cm paratracheal lymph node axial image 23 series 5. Other findings: Slightly Elevated left hemidiaphragm. RIGHT PLEURAL SPACE: Effusion: None Calcification: None Thickening: None Pneumothorax: None LEFT PLEURAL SPACE: Effusion: None Calcification: None Thickening: None Pneumothorax: None HEART: Heart Size: Normal Coronary Calcification: Moderate 3 vessel Pericardial Effusion: None OTHER FINDINGS: Upper abdomen: Cholecystectomy clips redemonstrated. Benign calcification posterior right hepatic dom e image 51 redemonstrated. Partial visualization of coils from ventral wall hernia repair surgery red emonstrated. Bony thorax: Slight scoliotic curvature with multilevel spurring redemonstrated. Supraclavicular region: None Other: Prominent right pulmonary artery suggests underlying pulmonary artery hypertension. IMPRESSION: No new or enlarging nodules. CT LUNG RAD AND CT CHEST RECOMMENDATION: Lung-Rad 2 Benign Appearance or Behavior: Continue annual sc reening with in 12 months. S Modifier (other clinically significant findings): None
== END | disposition home or self-care (01) ==
LOC: RADCTMAIN 09:30
PROVIDERS: ATTEND Family Medicine
DX: Z12.2 Encounter for screening for malignant neoplasm of respiratory organs (principal); Z87.891 Personal history of nicotine dependence
CPT/HCPCS: 71271

== ENCOUNTER 2022-06-25 15:28 | Emergency (ER) | payer MEDICARE, OTHER ==
[2022-06-25 15:32] VITALS: TEMP 98.4
[2022-06-25] MEDS ORDERED: HYDROcodone/APAP 5-325MG 1 EACH TAB PO STA (15:41)
--- NOTE | 2022-06-25 15:46 | ED ---
Upper Extremity HPI - General Chief Complaint: Extremity Injury, Upper Stated Complaint: arm pain Time Seen by Provider: 06/25/22 15:33 Source: patient, RN notes reviewed, old records reviewed Mode of arrival: ambulatory Limitations: no limitations - History of Present Illness Initial Comments: This is a nontoxic-appearing 67-year-old male that presents to the emergency room with complaints of right wrist pain for a month. Denies any injuries. States that he did buy a brace at [facility] that has helped with his discomfort however today states pain is 10 out of 10. Denies any fevers. No other joint pain. Does have history of diabetes, hypertension, hyperlipidemia, neuropathy and rheumatoid arthritis. MD Complaint: Injury to:: right, wrist -: month(s) (1) Other Injuries: none Severity scale (1-10): 10 Improves With: immobilization, other (splint) Worsens With: movement of extremity Associated Symptoms: denies other symptoms - Related Data Home Medications Medication Instructions Recorded Confirmed Amitriptyline HCl [Elavil] 75 mg PO HS 07/25/14 10/17/19 Aspirin EC [Ecotrin Low Dose] 81 mg PO DAILY 07/25/14 10/17/19 Atorvastatin [Lipitor] 10 mg PO DAILY 07/25/14 10/17/19 Multivitamin [Men's Multi-Vitamin] 1 tab PO DAILY 07/25/14 10/17/19 Potassium Chloride [K-Tab ER] 10 meq PO Q48H 07/25/14 10/17/19 Sertraline HCl [Zoloft] 100 mg PO DAILY 07/25/14 10/17/19 lamoTRIgine [LaMICtal] 150 mg PO BID 07/25/14 10/17/19 metFORMIN HCL [Glucophage] 500 mg PO DAILY 07/25/14 10/17/19 modafiniL [Provigil] 100 mg PO DAILY 07/25/14 10/17/19 Fish Oil/Dha/Epa [Fish Oil 1,200 1 cap PO DAILY 03/06/17 10/17/19 mg Fish Oil] Gabapentin 800 mg PO TID 03/06/17 10/17/19 HYDROcodone/APAP 7.5-325MG [[place] 1 tab PO BID 04/21/17 10/17/19 7.5-325] Ferrous Sulfate [Feosol] 325 mg PO DAILY 10/17/19 10/17/19 Previous Rx's Medication Instructions Recorded Azithromycin [Zithromax] 500 mg PO DAILY@1800 4 Days #4 tab 10/19/19 Azithromycin [Zithromax Z-pack (6 0 mg PO DIRECTED #1 packet 05/23/21 tabs)] Cyclobenzaprine [Flexeril] 10 mg PO TID PRN #15 tab 05/23/21 clindamycin HCL [Cleocin] 300 mg PO Q6HR 3 Days #12 cap 01/22/22 Allergies Allergy/AdvReac Type Severity Reaction Status Date / Time codeine Allergy Hallucinati Verified 06/25/22 15:32 ons donepezil HCl [From Aricept] Allergy Hallucinati Verified 06/25/22 15:32 ons ibuprofen Allergy Anaphylaxis Verified 06/25/22 15:32 Penicillins Allergy Unknown Verified 06/25/22 15:32 Childhood Sulfa (Sulfonamide Allergy Unknown Verified 06/25/22 15:32 Antibiotics) Childhood Review of Systems ROS Statement: Those systems with pertinent positive or pertinent negative responses have been documented in the HPI. ROS Other: All systems not noted in ROS Statement are negative. Past Medical History Past Medical History: Diabetes Mellitus, Hyperlipidemia, Hypertension, Rheumatoid Arthritis (RA) Additional Past Medical History / Comment(s): brain injury, neuropathy, chronic back and shoulder pain History of Any Multi-Drug Resistant Organisms: None Reported Past Surgical History: Cholecystectomy, Hernia Repair Additional Past Surgical History / Comment(s): splenectomy, neck surg, left eye Past Psychological History: Anxiety, Bipolar, Depression, Schizophrenia Smoking Status: Current every day smoker Past Alcohol Use History: Daily, Heavy Past Drug Use History: None Reported General Exam Limitations: no limitations General appearance: alert, in no apparent distress Head exam: Present: atraumatic Respiratory exam: Absent: respiratory distress, accessory muscle use Cardiovascular Exam: Present: regular rate Right Upper Arm exam: Absent: tenderness, swelling Elbow exam: Present: full ROM. Absent: tenderness, swelling Forearm Wrist exam: Absent: tenderness, swelling Hand Wrist exam: Present: tenderness, swelling. Absent: laceration, ecchymosis, deformity, crepitus, dislocation, erythema Neuro motor exam: Present: wrist extension intact, thumb opposition intact Neurosensory exam: Present: radial nerve intact, ulnar nerve intact, median nerve intact Vascular: Present: normal capillary refill, radial pulse. Absent: vascular compromise Neurological exam: Present: alert, oriented X3 Psychiatric exam: Present: normal affect, normal mood Skin exam: Present: warm, dry, normal color. Absent: cyanosis, diaphoretic, petechiae, pallor Course Vital Signs 06/25/22 15:30 Temperature 98.4 F Pulse Rate 71 Respiratory 20 Rate Blood Pressure 122/75 O2 Sat by Pulse 99 Oximetry Medical Decision Making - Medical Decision Making X-ray of the right wrist interpreted by me shows no evidence of fracture or dislocation. Radiologist's interpretation no significant abnormality seen. He will be directed to continue wearing the splint that he purchased for immobilization and follow-up with orthopedics. Tylenol and aspirin as needed for pain as he states he is ALLERGIC to ibuprofen. Case discussed with Dr. Fry Was pt. sent in by a medical professional or institution? @ -no Did you speak to anyone other than the patient for history? @ -no Did you review nursing and triage notes? @ -yes i agree Were old charts reviewed? @ -no Differential Diagnosis? @ -Ganglion cyst, fracture, de Quervain's, rheumatoid arthritis, osteoarthritis EKG interpreted by me (3pts min.)? @ -[none] X-rays interpreted by me (1pt min.)? @ -yes as above CT interpreted by me (1pt min.)? @ -[none] U/S interpreted by me (1pt. min.)? @ -[none] What testing was considered but not performed? (CT, X-rays, U/S, labs)? Why? @ none What meds were considered but not given? Why? @ -Toradol and Motrin were considered however patient is ALLERGIC Did you discuss the management of the patient with other professionals? @ -no Did you reconcile home meds? @ -no Was smoking cessation discussed for >3mins.? @ -no Was critical care preformed (if so, how long)? @ -no Were there social determinants of health that impacted care today? How? (Homelessness, low income, unemployed, alcoholism, drug addiction, transportation, low edu. Level, literacy, decrease access to med. care, usp, rehab)? @ -alcoholism Was there de-escalation of care discussed even if they declined? (Discuss DNR or withdrawal of care, Hospice)? @ -no What co-morbidities impacted this encounter? (DM, HTN, Smoking, COPD, CAD, Cancer, CVA, Hep., AIDS, mental health diagnosis, sleep apnea, morbid obesity)? @ -Diabetes, hypertension, hyperlipidemia, neuropathy, rheumatoid arthritis Was patient admitted / discharged? @ -discharged Undiagnosed new problem with uncertain prognosis? @ -[none] Drug Therapy requiring intensive monitoring for toxicity (Heparin, Nitro, Insulin, Cardizem)? @ -no Were any procedures done? @ -none Diagnosis/symptom? @ -Right wrist pain, de Quervain's Acute, or Chronic, or Acute on Chronic? @ -acute Uncomplicated (without systemic symptoms) or Complicated (systemic symptoms)? @ -[default] Side effects of treatment? @ -[none] Exacerbation, Progression, or Severe Exacerbation] @ -[no] Poses a threat to life or bodily function? @ -[no] Disposition Clinical Impression: Wrist pain, right, De Quervain's disease (radial styloid tenosynovitis) Disposition: HOME SELF-CARE Condition: Good Instructions (If sedation given, give patient instructions): Swollen Joint (ED) Additional Instructions: Rest, ice, elevate and wear splint to immobilize joint. Tylenol and aspiring as needed for pain. Follow-up with orthopedics next week as persistent pain can sometimes be treated with steroid injections. Is patient prescribed a controlled substance at d/c from ED?: No Referrals: Rishi Pettit DO [Primary Care Provider] - 1-2 days Rishi Rush DO [Doctor of Osteopathic Medicine] - 1-2 days Time of Disposition: 16:14
--- NOTE | 2022-06-25 16:03 | XR ---
Right wrist HISTORY: Pain for one month COMPARISON: None. TECHNIQUE: 4 views the right wrist are obtained. FINDINGS: There is no fracture, dislocation, intraosseous or intra-articular abnormality. There is no radiopaqu e foreign body or abnormal soft tissue calcification. IMPRESSION: No significant abnormality seen.
[2022-06-25 16:31] VITALS: BP 123/72; PULSE 65; RESP 18
== END 2022-06-25 16:30 | disposition home or self-care (01) ==
LOC: EC 15:28
DX: M65.4 Radial styloid tenosynovitis [de Quervain] (principal); E11.9 Type 2 diabetes mellitus without complications; E78.5 Hyperlipidemia, unspecified; I10 Essential (primary) hypertension; M06.9 Rheumatoid arthritis, unspecified; F41.9 Anxiety disorder, unspecified; F31.9 Bipolar disorder, unspecified; F17.200 Nicotine dependence, unspecified, uncomplicated; Z88.5 Allergy status to narcotic agent; Z88.0 Allergy status to penicillin; Z88.2 Allergy status to sulfonamides; Z88.6 Allergy status to analgesic agent; Z88.8 Allergy status to other drugs, medicaments and biological substances; Z79.82 Long term (current) use of aspirin; Z79.84 Long term (current) use of oral hypoglycemic drugs; Z79.899 Other long term (current) drug therapy
CPT/HCPCS: 99283

== ENCOUNTER 2022-11-22 16:09 | Emergency (ER) | payer MEDICARE, OTHER ==
[2022-11-22] MEDS ORDERED: KETOROLAC 15 MG/ML 1 ML VIAL IM STA (16:58)
[2022-11-22] MEDS ORDERED: ORPHENADRINE 30 MG/ML 2 ML VIAL IM STA (16:58)
--- NOTE | 2022-11-22 18:00 | CT ---
EXAMINATION TYPE: CT cervical spine wo con CT DLP: 492.6 mGycm, Automated exposure control for dose reduction was used. DATE OF EXAM: 11/22/2022 5:42 PM COMPARISON: 04/21/2017. CLINICAL INDICATION:Male, 67 years old with history of L sided neck pain, midline pain, L sided neck pain TECHNIQUE: Axial CT images from the skull base to the inferior aspect of T2 we obtained without intra venous contrast. Coronal and sagittal reformatted images were also reviewed. Contrast used: mL of , (if blank None) Oral contrast used: (if blank None) FINDINGS: Fracture: None. Osseous structures: Fixation changes to the spine involving L4 and L5. Hardware appears intact and si milar to prior in 2017. Multilevel degenerative disc disease changes with endplate spurring and disc osteophyte complex's. Vertebral alignment: Alignment within normal limits. Spinal canal/Neural Foramina: Disc osteophyte complexes at C4-C5 to C6-C7 with at least mild spinal c anal stenosis. Facet joint uncovertebral joint arthropathy scattered throughout the cervical spine wi th varying degrees of neural foraminal stenosis. Findings are worse at multiple levels with moderate to severe neural foraminal stenosis. Neck soft tissues: Prevertebral soft tissues are within normal limits. Other: The airway is patent. Paraseptal emphysema changes in the lung apices. IMPRESSION: 1. No evidence of cervical spine fracture. 2. Post fixation changes of the spine with hardware intact. 3. Moderate multilevel degenerative disc disease with anterior osteophytes which impress upon the eso phagus. 4. Ivua-ud-bjledwtr emphysema changes in lung apices.
[2022-11-22 18:49] VITALS: BP 113/69; PULSE 64; RESP 16; TEMP 98.3
--- NOTE | 2022-11-22 19:07 | ED ---
General Adult HPI - General Chief complaint: Neck Pain/Injury Stated complaint: Neck Pain Time Seen by Provider: 11/22/22 16:28 Source: patient Mode of arrival: ambulatory Limitations: no limitations - History of Present Illness Initial comments: This is a 67-year-old male with a past medical history including diabetes and hypertension as well as previous cervical spine surgery presents emergency department for left-sided neck pain that is been present over the last 1-1/2 months. The patient stated that over the last several nights however he went to bed and stated that the pain in the left side of his neck was severe to the point where he could not sleep. The patient denied any trauma to the neck and stated that he had pain on the lateral aspect of his left neck down to the superior trapezius. The patient was able to move his neck back and forth without any pain and denied any other acute pain or complaints at this time. The patient was resting in bed. - Related Data Home Medications Medication Instructions Recorded Confirmed Amitriptyline HCl [Elavil] 75 mg PO HS 07/25/14 10/17/19 Aspirin EC [Ecotrin Low Dose] 81 mg PO DAILY 07/25/14 10/17/19 Atorvastatin [Lipitor] 10 mg PO DAILY 07/25/14 10/17/19 Multivitamin [Men's Multi-Vitamin] 1 tab PO DAILY 07/25/14 10/17/19 Potassium Chloride [K-Tab ER] 10 meq PO Q48H 07/25/14 10/17/19 Sertraline HCl [Zoloft] 100 mg PO DAILY 07/25/14 10/17/19 lamoTRIgine [LaMICtal] 150 mg PO BID 07/25/14 10/17/19 metFORMIN HCL [Glucophage] 500 mg PO DAILY 07/25/14 10/17/19 modafiniL [Provigil] 100 mg PO DAILY 07/25/14 10/17/19 Fish Oil/Dha/Epa [Fish Oil 1,200 1 cap PO DAILY 03/06/17 10/17/19 mg Fish Oil] Gabapentin 800 mg PO TID 03/06/17 10/17/19 HYDROcodone/APAP 7.5-325MG [[place] 1 tab PO BID 04/21/17 10/17/19 7.5-325] Ferrous Sulfate [Feosol] 325 mg PO DAILY 10/17/19 10/17/19 Previous Rx's Medication Instructions Recorded Azithromycin [Zithromax] 500 mg PO DAILY@1800 4 Days #4 tab 10/19/19 Azithromycin [Zithromax Z-pack (6 0 mg PO DIRECTED #1 packet 05/23/21 tabs)] Cyclobenzaprine [Flexeril] 10 mg PO TID PRN #15 tab 05/23/21 clindamycin HCL [Cleocin] 300 mg PO Q6HR 3 Days #12 cap 01/22/22 methocarbamoL [Robaxin-750] 750 mg PO TID #30 tab 11/22/22 Allergies Allergy/AdvReac Type Severity Reaction Status Date / Time codeine Allergy Hallucinati Verified 06/25/22 15:32 ons donepezil HCl [From Aricept] Allergy Hallucinati Verified 06/25/22 15:32 ons ibuprofen Allergy Anaphylaxis Verified 06/25/22 15:32 Penicillins Allergy Unknown Verified 06/25/22 15:32 Childhood Sulfa (Sulfonamide Allergy Unknown Verified 06/25/22 15:32 Antibiotics) Childhood Review of Systems ROS Statement: Those systems with pertinent positive or pertinent negative responses have been documented in the HPI. ROS Other: All systems not noted in ROS Statement are negative. Past Medical History Past Medical History: Diabetes Mellitus, Hyperlipidemia, Hypertension, Rheumatoid Arthritis (RA) Additional Past Medical History / Comment(s): brain injury, neuropathy, chronic back and shoulder pain History of Any Multi-Drug Resistant Organisms: None Reported Past Surgical History: Cholecystectomy, Hernia Repair Additional Past Surgical History / Comment(s): splenectomy, neck surg, left eye, carpal tunnel surgery Past Psychological History: Anxiety, Bipolar, Depression, Schizophrenia Smoking Status: Current every day smoker Past Alcohol Use History: Daily, Heavy Past Drug Use History: None Reported General Exam Limitations: no limitations General appearance: alert, in no apparent distress Head exam: Present: atraumatic, normocephalic, normal inspection Eye exam: Present: normal appearance, PERRL Pupils: Present: normal accommodation ENT exam: Present: normal exam, normal oropharynx, mucous membranes moist Neck exam: Present: tenderness (Tenderness noted to the left lateral cervical spine with full range of motion noted.), full ROM Respiratory exam: Present: normal lung sounds bilaterally Cardiovascular Exam: Present: regular rate, normal rhythm GI/Abdominal exam: Present: soft, normal bowel sounds Extremities exam: Present: normal inspection, full ROM Back exam: Present: normal inspection, full ROM Neurological exam: Present: alert, oriented X3, CN II-XII intact Psychiatric exam: Present: normal affect, normal mood Skin exam: Present: warm, dry Course Vital Signs 11/22/22 18:47 Temperature 98.3 F Pulse Rate 64 Respiratory 16 Rate Blood Pressure 113/69 O2 Sat by Pulse 95 Oximetry Medical Decision Making - Medical Decision Making Was pt. sent in by a medical professional or institution (, PA, MARKETING TRAFFIC COORDINATOR, urgent care, hospital, or senior living...) When possible be specific @ -No Did you speak to anyone other than the patient for history (EMS, parent, family, police, friend...)? What history was obtained from this source @ -No Did you review nursing and triage notes (agree or disagree)? Why? @ -I reviewed and agree with nursing and triage notes Were old charts reviewed (outside hosp., previous admission, EMS record, old EKG, old radiological studies, urgent care reports/EKG's, senior living records)? Report findings @ -No old charts were reviewed Differential Diagnosis (chest pain, altered mental status, abdominal pain women, abdominal pain men, vaginal bleeding, weakness, fever, dyspnea, syncope, headache, dizziness, GI bleed, back pain, seizure, CVA, palpatations, mental health)? @ -Cervical spinal fracture, muscle strain, cervical sprain EKG interpreted by me (3pts min.). @ -None X-rays interpreted by me (1pt min.). @ -None done CT interpreted by me (1pt min.). @ -CT of the C-spine was obtained was interpreted by myself showing no evidence of cervical spine fracture. There was post fixation changes of the spinal however intact. There is moderate multilevel degenerative disc disease with anterior osteophytes was impressed upon the esophagus. The patient was asked about this and he denied any difficulty swallowing or any pain noted. U/S interpreted by me (1pt. min.). @ -None done What testing was considered but not performed or refused? (CT, X-rays, U/S, labs)? Why? @ -None What meds were considered but not given or refused? Why? @ -None Did you discuss the management of the patient with other professionals (professionals i.e. , PA, MARKETING TRAFFIC COORDINATOR, lab, RT, psych nurse, professor of social work, machine inspector, teacher, chief resource officer, case repairer)? Give summary @ -No Was smoking cessation discussed for >3mins.? @ -Yes Was critical care preformed (if so, how long)? @ -No Were there social determinants of health that impacted care today? How? (Homelessness, low income, unemployed, alcoholism, drug addiction, transportation, low edu. Level, literacy, decrease access to med. care, [facility], rehab)? @ -No Was there de-escalation of care discussed even if they declined (Discuss DNR or withdrawal of care, Hospice)? DNR status @ -No What co-morbidities impacted this encounter? (DM, HTN, Smoking, COPD, CAD, Cancer, CVA, ARF, Chemo, Hep., AIDS, mental health diagnosis, sleep apnea, morbid obesity)? @ -Hypertension, diabetes, previous cervical spinal surgery Was patient admitted / discharged? Hospital course, mention meds given and route, prescriptions, significant lab abnormalities, going to OR and other pertinent info. @ -The patient was seen and evaluated emergency department. Physical exam, the patient was resting in bed in any acute distress. Vital signs admission were stable. Due to the nature the patient's complaints, a computed tomography scan of the C-spine was obtained that did not show any acute fractures. The patient was given Toradol as well as Norflex and on reevaluation had significant improvement of his pain. Due to the findings, and the setting of the patient's chronicity of pain, the patient was stable for discharge home. The patient was given a prescription for Robaxin to be taken at home and told to follow-up with his neurosurgeon for further workup and evaluation. The patient was advised to report back to the emergency department if he had numbness or tingling as well as any bowel or bladder incontinence. The patient was agreeable to this and all his questions were answered appropriate. The patient was discharged home in stable condition. Undiagnosed new problem with uncertain prognosis? @ -No Drug Therapy requiring intensive monitoring for toxicity (Heparin, Nitro, Insulin, Cardizem)? @ -No Were any procedures done? @ -No Diagnosis/symptom? @ -Left-sided cervical strain Acute, or Chronic, or Acute on Chronic? @ -Chronic Uncomplicated (without systemic symptoms) or Complicated (systemic symptoms)? @ -Uncomplicated Side effects of treatment? @ -No Exacerbation, Progression, or Severe Exacerbation? @ -No Poses a threat to life or bodily function? How? (Chest pain, [place], [place], pneumonia, PE, COPD, DKA, ARF, appy, cholecystitis, CVA, Diverticulitis, Homicidal, Suicidal, threat to staff... and all critical care pts) @ -No Disposition Clinical Impression: Strain of neck muscle Disposition: HOME SELF-CARE Condition: Stable Instructions (If sedation given, give patient instructions): Cervical Strain (ED) Prescriptions: methocarbamoL [Robaxin-750] 750 mg PO TID #30 tab Is patient prescribed a controlled substance at d/c from ED?: No Referrals: Rishi Pettit DO [Primary Care Provider] - 1-2 days Time of Disposition: 18:20
== END 2022-11-22 19:16 | disposition home or self-care (01) ==
LOC: EC 16:09
DX: S16.1XXA Strain of muscle, fascia and tendon at neck level, initial encounter (principal); J43.9 Emphysema, unspecified; I10 Essential (primary) hypertension; F41.9 Anxiety disorder, unspecified; F31.9 Bipolar disorder, unspecified; E11.9 Type 2 diabetes mellitus without complications; E78.5 Hyperlipidemia, unspecified; F17.200 Nicotine dependence, unspecified, uncomplicated; Z79.82 Long term (current) use of aspirin; Z79.84 Long term (current) use of oral hypoglycemic drugs; Z79.899 Other long term (current) drug therapy; Z88.0 Allergy status to penicillin; Z88.1 Allergy status to other antibiotic agents; Z88.2 Allergy status to sulfonamides; Z88.8 Allergy status to other drugs, medicaments and biological substances; Z90.49 Acquired absence of other specified parts of digestive tract; X58.XXXA Exposure to other specified factors, initial encounter
CPT/HCPCS: 72125; 99284; 96372 ×2; J2360; J1885

== ENCOUNTER → 2023-01-04 | Outpatient (CLI) | payer MEDICARE, OTHER ==
--- NOTE | 2023-01-04 12:05 | XR ---
EXAMINATION TYPE: XR knee complete RT DATE OF EXAM: 01/04/2023 COMPARISON: NONE HISTORY: Pain TECHNIQUE: Three views are submitted. FINDINGS: Osseous structures are intact. No acute fracture seen. The leak There is a marginal spur involving t he patella and medial and lateral margins of the joint space with mild narrowing. No erosive changes. Hypertrophic spurring of the tibial tubercle noted. There is a small amount of fluid in the supra pa tellar bursa. Prepatellar soft tissue edema. IMPRESSION: 1. Mild osteoarthritis with small suprapatellar bursal fluid collection. 2. No acute fracture.
== END | disposition home or self-care (01) ==
LOC: RADXRYALE 10:31
PROVIDERS: ATTEND Physician Assistant Medical
DX: S83.91XA Sprain of unspecified site of right knee, initial encounter (principal); M17.11 Unilateral primary osteoarthritis, right knee; M25.461 Effusion, right knee

== ENCOUNTER → 2023-03-28 | Outpatient (CLI) | payer MEDICARE, OTHER ==
[2023-03-28 21:51] LABS: Basophils # (A) 0.09 X 10*3/uL (0.00-0.10); Basophils % (A) 0.9 %; Eosinophils % (A) 5.1 %; HCT 48.2 % (39.6-50.0); HGB 15.7 d/dL (13.0-17.0); Lymphocytes # (A) 4.13 X 10*3/uL (0.90-5.00); Lymphocytes % (A) 41.9 %; MCH 31.9 pg (27.0-32.0); MCHC 32.6 d/dL (32.0-37.0); Mean Platelet Volume 10.5 FL (9.5-12.2); Monocytes # (A) 0.71 X 10*3/uL (0.20-1.00); Monocytes % (A) 7.2 %; NRBC Per 100 WBC 0 X 10*3/uL (0.00-0.01); Neutrophils # (A) 4.41 X 10*3/uL (1.80-7.70); Neutrophils % (A) 44.7 %; Platelet Count 328 X 10*3/uL (140-440); RBC 4.92 X 10*6/uL (4.40-5.60); RDW 15.3 % (11.5-14.5); WBC 9.86 X 10*3/uL (4.50-10.00)
[2023-03-28 22:24] LABS: ALT 24 U/L (10-49); AST 23 U/L (14-35); Albumin 4.6 d/dL (3.8-4.9); Albumin/Globulin Ratio 1.59 Ratio (1.60-3.17); Alkaline Phosphatase 135 U/L (41-126); BUN/Creat Ratio 20.14 Ratio (12.00-20.00); Blood Urea Nitrogen 14.1 mg/dL (9.0-27.0); Calcium 10.5 mg/dL (8.7-10.3); Carbon Dioxide 27.9 mmol/L (21.6-31.8); Chloride 98 mmol/L (96-109); Chol/HDL Ratio 3.46 Ratio; Creatine Kinase 73 U/L (35-257); Globulin 2.9 d/dL (1.6-3.3); Glucose 85 mg/dL (70-110); Potassium 5.1 mmol/L (3.5-5.5); Prostate Specific Antigen 5.01 ng/mL (0.000-4.500); Sodium 139 mmol/L (135-145); Total Bilirubin 0.5 mg/dL (0.3-1.2); Total Protein 7.5 d/dL (6.2-8.2)
== END | disposition home or self-care (01) ==
LOC: LABWHC1 10:41
PROVIDERS: ATTEND Family Medicine
DX: Z12.5 Encounter for screening for malignant neoplasm of prostate (principal); I10 Essential (primary) hypertension; E78.2 Mixed hyperlipidemia; E11.42 Type 2 diabetes mellitus with diabetic polyneuropathy; F33.0 Major depressive disorder, recurrent, mild; Z87.820 Personal history of traumatic brain injury
CPT/HCPCS: 36415; 80053; 80061; 82550; 83036; 84153; 84443; 85025

== ENCOUNTER → 2023-05-06 | Outpatient (CLI) | payer MEDICARE, OTHER ==
--- NOTE | 2023-05-06 20:05 | MR ---
EXAMINATION TYPE: MR cervical spine wo/w con DATE OF EXAM: 05/06/2023 6:55 PM CLINICAL INDICATION:Male, 67 years old with history of M47.812 M54.16, Neck pain into both arms, COMPARISON: 12/20/2018. TECHNIQUE: Multi planar, multi sequence imaging was performed utilizing: T1-weighted, T2-weighted, an d turbo inversion recovery imaging of the cervical spine. IV Contrast: 9 cc Gadavist (none if empty) FINDINGS: Alignment: The cervical vertebral bodies have preserved heights. Alignment is within normal limits gi hermelinda patient positioning. Bones: Postsurgical changes at C4-C5. Bone signal is otherwise within normal limits. No abnormal bone marrow edema on inversion recovery sequences. No abnormal postcontrast enhancement. Degeneration ashvin nges with osteophyte formation disc space narrowing and facet and uncovertebral joint arthropathy. Cord: The spinal cord is unremarkable with regards to their signal intensity and morphology. No abnor mal postcontrast enhancement Discs: Intervertebral disc signal is maintained. C2-C3: No significant disc pathology. The spinal canal is patent. Bilateral facet and uncovertebral joint arthropathy are present with moderate to severe right and mild left neural foraminal stenosis. C3-C4: A disc osteophyte complex is present with mild spinal canal stenosis. Bilateral facet and unc overtebral joint arthropathy are present with moderate bilateral neural foraminal stenosis. C4-C5: No significant disc pathology. The spinal canal is patent. Bilateral facet and uncovertebral joint arthropathy are present with moderate bilateral left neural foraminal stenosis. C5-C6: A disc osteophyte complex is present with moderate to severe spinal canal stenosis. Bilateral facet and uncovertebral joint arthropathy are present with severe bilateral neural foraminal stenosi s. C6-C7: No significant disc pathology. The spinal canal is patent. Bilateral facet and uncovertebral joint arthropathy are present with severe bilateral neural foraminal stenosis. C7-T1: No significant disc pathology. The spinal canal is patent. Bilateral facet and uncovertebral joint arthropathy are present with moderate bilateral neural foraminal stenosis. Other: None. IMPRESSION: 1. Moderate to severe C5-C6 spinal canal stenosis. Cord signal is maintained. 2. Multilevel disc degeneration with associated osteoarthritic changes with severe bilateral C5-C6 an d C6-C7 neural foraminal stenosis.
--- NOTE | 2023-05-07 15:35 | MR ---
EXAMINATION TYPE: MR lumbar spine wo con DATE OF EXAM: 05/06/2023 COMPARISON: 07/14/2016 HISTORY: Low back pain into legs TECHNIQUE: Multiplanar, multisequence images of the lumbar spine were acquired without IV contrast. Findings: Lumbar vertebral segments are normal in height. There is a grade 2 anterolisthesis of L4 on L5. There is bilateral spondylolysis of L4. There is marked degenerative disc disease throughout the lumbar region where there is marked disc spa ce narrowing, loss signal intensity, disc bulge and spondylosis. There are no focal disc herniations. Secondary to facet hypertrophy, thickening ligamentum flavum and circumferential disc bulge there is a mild spinal stenosis at T12/L1, mild to moderate spinal stenosis at the L1-2 level, mild spinal cody nosis at the L2-3 and L3-4 levels and moderate to severe spinal stenosis at the L4-5 level. There is multilevel neural foraminal stenosis as follows; mild to moderate the L1-2, L2-3 and L3-4 le vels on the right, moderate to severe at the L4-5 and L5-S1 levels on the right, moderate to severe a t the L3-4, L4-5 and L5-S1 levels on the left, and mild at the L1-2 and L2-3 levels on the left. There is marked facet arthropathy at the L2-3, L3-4 and L4-5 levels and mild facet arthropathy at the L1-2 and L5-S1 levels. Comparison to the prior study reveals significant worsening of the anterolisthesis and spinal stenosi s at the L4-5 level. IMPRESSION: 1. Grade 2 anterolisthesis of L4 on L5 secondary to bilateral spondylolysis of L4. There has been sig nificant interval worsening compared to the prior study. 2. Marked degenerative disease throughout the lumbar region. 3. Multilevel spinal stenosis as described above. 4 multilevel bilateral neural foraminal stenosis as described above. There is severe neural foraminal stenosis in the lower lumbar spine bilaterally, left greater than right as described above.
== END | disposition home or self-care (01) ==
LOC: RADMRIMAIN 17:13
PROVIDERS: ATTEND Neurological Surgery
DX: M47.22 Other spondylosis with radiculopathy, cervical region (principal); M99.71 Connective tissue and disc stenosis of intervertebral foramina of cervical region; M50.10 Cervical disc disorder with radiculopathy, unspecified cervical region; M48.061 Spinal stenosis, lumbar region without neurogenic claudication; M48.02 Spinal stenosis, cervical region; M43.16 Spondylolisthesis, lumbar region; M47.26 Other spondylosis with radiculopathy, lumbar region; M51.16 Intervertebral disc disorders with radiculopathy, lumbar region; M99.73 Connective tissue and disc stenosis of intervertebral foramina of lumbar region
CPT/HCPCS: 72148; 72156; A9585

== ENCOUNTER 2023-06-11 16:38 | Emergency (ER) | payer MEDICARE, OTHER ==
[2023-06-11] MEDS ORDERED: SODIUM CHLORIDE 0.9% 1,000 ML IV ONE (17:10)
[2023-06-11 17:53] LABS: Basophils # (A) 0.1 k/uL (0-0.2); Basophils % (A) 1 %; Eosinophils # (A) 0.4 k/uL (0-0.7); Eosinophils % (A) 3 %; HCT 50.9 % (39.0-53.0); HGB 16.8 gm/dL (13.0-17.5); Lymphocytes # (A) 4.6 k/uL (1.0-4.8); Lymphocytes % (A) 40 %; MCH 31.4 pg (25.0-35.0); MCHC 33.1 g/dL (31.0-37.0); MCV 95.1 fL (80.0-100.0); Mean Platelet Volume 8.5; Monocytes # (A) 0.7 k/uL (0-1.0); Monocytes % (A) 6 %; Neutrophils # (A) 5.3 k/uL (1.3-7.7); Neutrophils % (A) 47 %; Platelet Count 310 k/uL (150-450); RBC 5.35 m/uL (4.30-5.90); RDW 13.2 % (11.5-15.5); WBC 11.4 k/uL (3.8-10.6)
[2023-06-11 18:05] LABS: ALT 29 U/L (4-49); AST 32 U/L (17-59); African American GFR (CKD) >90 (>60 ml/min/1.73 sqM); Albumin 4.6 g/dL (3.5-5.0); Alcohol <10 mg/dL; Alkaline Phosphatase 101 U/L (38-126); Anion Gap 9 mmol/L; Blood Urea Nitrogen 13 mg/dL (9-20); Calcium 10.3 mg/dL (8.4-10.2); Carbon Dioxide 31 mmol/L (22-30); Chloride 103 mmol/L (98-107); Glucose 116 mg/dL (74-99); Non-African American GFR(CKD) >90 (>60 ml/min/1.73 sqM); Potassium 4.3 mmol/L (3.5-5.1); Sodium 143 mmol/L (137-145); Total Bilirubin 0.7 mg/dL (0.2-1.3); Total Protein 7.9 g/dL (6.3-8.2)
[2023-06-11 18:07] LABS: INR 0.9 (<1.2); Partial Thromboplastin Time 25.8 sec (22.0-30.0); Prothrombin Time 10.4 sec (10.0-12.5)
--- NOTE | 2023-06-11 18:16 | CT ---
EXAMINATION TYPE: CT brain wo con DATE OF EXAM: 06/11/2023 COMPARISON: 10/16/19 HISTORY: AMS CT DLP: 1124.[address] of the brain was performed. The ventricles, basal cisterns and sulci overlying the cerebral convexities demonstrate mild enlargem ent. There is no evidence for intracranial hemorrhage or sulcal effacement. There is decreased attenuation about the periventricular white matter and deep white matter of both c erebral hemispheres, compatible with chronic small vessel ischemia. Differential diagnosis does inclu de demyelination. No mass effects are seen.No midline shift. Osseous calvarium is intact. If symptoms persist consider MRI. IMPRESSION: 1. Age related atrophic and chronic small vessel ischemic change without acute intracranial process s een at this time.
--- NOTE | 2023-06-11 18:31 | XR ---
EXAMINATION TYPE: XR chest 2V DATE OF EXAM: 06/11/2023 COMPARISON: 05/23/2021 HISTORY: Shortness of breath TECHNIQUE: Frontal and lateral views of the chest are obtained. FINDINGS: Scattered senescent parenchymal changes noted. Hyperinflation compatible with COPD. No evidence for infiltrate. No evidence for atelectasis. Heart size is stable. Mediastinal structures are stable and grossly unremarkable. No evidence for hilar prominence. Degenerative changes dorsal spine. IMPRESSION: 1. No evidence for acute pulmonary disease.
[2023-06-11 18:39] VITALS: TEMP 98
--- NOTE | 2023-06-11 18:47 | ED ---
General Adult HPI - General Chief complaint: Altered Mental Status Stated complaint: Lethargic Time Seen by Provider: 06/11/23 16:45 Source: patient, EMS, RN notes reviewed, old records reviewed Mode of arrival: EMS Limitations: no limitations - History of Present Illness Initial comments: Patient is a 67-year-old male brought in by over concern for altered mental status. Has a history of a TBI. His is his primary caregiver and helps him with his normal ADLs. Pain medications to change today as he took a Percocet instead of his normal [place] this morning. Had an episode at home of 1 suspects may have been a syncopal episode. Was what she describes as "sleeping while sitting up." Took minutes to wake him. Called EMS to have him brought here for evaluation. Currently seems still more tired than normal. Patient has no obvious complaints at this time. Presents for further evaluation at this time. - Related Data Home Medications Medication Instructions Recorded Confirmed Amitriptyline HCl [Elavil] 75 mg PO HS 07/25/14 06/11/23 Aspirin EC [Ecotrin Low Dose] 81 mg PO DAILY 07/25/14 06/11/23 Atorvastatin [Lipitor] 10 mg PO HS 07/25/14 06/11/23 Potassium Chloride [K-Tab ER] 10 meq PO DAILY 07/25/14 06/11/23 Sertraline HCl [Zoloft] 100 mg PO HS 07/25/14 06/11/23 lamoTRIgine [LaMICtal] 150 mg PO BID 07/25/14 06/11/23 metFORMIN HCL [Glucophage] 500 mg PO BID 07/25/14 06/11/23 Gabapentin 800 mg PO BID 03/06/17 06/11/23 Metoprolol Tartrate [Lopressor] 25 mg PO BID 06/11/23 06/11/23 Multivit/Iron Sulf/Folic Acid 1 tab PO DAILY 06/11/23 06/11/23 [Multivitamin with Iron] [place]-3/Dha/Epa/Fish Oil [Fish Oil 1 cap PO DAILY 06/11/23 06/11/23 1,000 mg Softgel] hydroCHLOROthiazide [Hydrodiuril] 25 mg PO DAILY 06/11/23 06/11/23 lisinopriL [Zestril] 10 mg PO HS 06/11/23 06/11/23 oxyCODONE-APAP 5-325MG [Percocet 1 tab PO ONCE 06/11/23 06/11/23 5-325 mg] Allergies Allergy/AdvReac Type Severity Reaction Status Date / Time codeine Allergy Hallucinati Verified 06/11/23 18:02 ons donepezil HCl [From Aricept] Allergy Hallucinati Verified 06/11/23 18:02 ons ibuprofen Allergy Anaphylaxis Verified 06/11/23 18:02 Penicillins Allergy Unknown Verified 06/11/23 18:02 Childhood Sulfa (Sulfonamide Allergy Unknown Verified 06/11/23 18:02 Antibiotics) Childhood Review of Systems ROS Statement: Those systems with pertinent positive or pertinent negative responses have been documented in the HPI. Review of Systems: CONST: Denies fever EYES: Denies blurry vision ENT: Denies nasal congestion C/V: Denies Chest pain RESP: Denies shortness of breath GI: Denies abdominal pain : Denies dysuria SKIN: Denies rash. MSK: Denies joint pain. NEURO: Denies headache ROS Other: All systems not noted in ROS Statement are negative. Past Medical History Past Medical History: Diabetes Mellitus, Hyperlipidemia, Hypertension, Rheumatoid Arthritis (RA) Additional Past Medical History / Comment(s): brain injury, neuropathy, chronic back and shoulder pain History of Any Multi-Drug Resistant Organisms: None Reported Past Surgical History: Cholecystectomy, Hernia Repair Additional Past Surgical History / Comment(s): splenectomy, neck surg, left eye, carpal tunnel surgery Past Psychological History: Anxiety, Bipolar, Depression, Schizophrenia Smoking Status: Current every day smoker Past Alcohol Use History: Daily, Heavy Past Drug Use History: None Reported General Exam - General Exam Comments Initial Comments: General: Appears in no acute distress. HEAD: Normal with no signs of head trauma. EYES: PERRLA, EOMI, conjunctiva normal, no discharge. ENT: Hearing grossly intact, normal oropharynx. RESPIRATORY: Clear breath sounds bilaterally. No wheezes, rales, or rhonchi. C/V: Regular rate and rhythm. S1 and S2 auscultated, no edema, peripheral pulses 2+ and intact throughout ABD: Abd is soft, nontender, nondistended EXT: Normal range of motion, no obvious deformity SKIN: No rashes or lesions observed on exposed skin. NEURO: Alert and oriented x 4. Cranial nerves II-XII intact. No focal sensory or strength deficits. Limitations: no limitations Course Vital Signs 06/11/23 06/11/23 18:17 20:15 Temperature 98.0 F 98.0 F Pulse Rate 74 72 Respiratory 18 16 Rate Blood Pressure 144/76 135/74 O2 Sat by Pulse 94 L 96 Oximetry Medical Decision Making - Medical Decision Making Was pt. sent in by a medical professional or institution (, [facility]URI[facility], ANTIQUE REPAIRER, urgent care, hospital, or half-way...) When possible be specific @ -No Did you speak to anyone other than the patient for history (EMS, parent, family, police, friend...)? What history was obtained from this source @ -No Did you review nursing and triage notes (agree or disagree)? Why? @ -I reviewed and agree with nursing and triage notes Were old charts reviewed (outside hosp., previous admission, EMS record, old EKG, old radiological studies, urgent care reports/EKG's, half-way records)? Report findings @ -Old charts reviewed Differential Diagnosis (chest pain, altered mental status, abdominal pain women, abdominal pain men, vaginal bleeding, weakness, fever, dyspnea, syncope, headac he, dizziness, GI bleed, back pain, seizure, CVA, palpatations, mental health, musculoskeletal)? @ -Differential Altered Mental Status: Hypoglycemia, DKA, hypercapnia, ETOH, overdose, CO poisoning, trauma, myxedema coma, HTN encephalopathy, infection, encephalitis, psychosis, intercranial hemorrhage, hepatic encephalopathy, meningitis, CVA, this is not meant to be an all-inclusive list EKG interpreted by me (3pts min.). @ -As above X-rays interpreted by me (1pt min.). @ -Chest x-ray reveals no obvious acute cardiopulmonary process. CT interpreted by me (1pt min.). @ -CT brain is remarkable for no obvious acute intracranial process. U/S interpreted by me (1pt. min.). @ -None done What testing was considered but not performed or refused? (CT, X-rays, U/S, labs)? Why? @ -None What meds were considered but not given or refused? Why? @ -None Did you discuss the management of the patient with other professionals (professionals i.e. , MURIEL, ANTIQUE REPAIRER, lab, RT, psych nurse, social work coordinator, clinical associate, teacher, public safety officer, egg caser)? Give summary @ -Spoke with [facility] who accepted the admission. Was smoking cessation discussed for >3mins.? @ -No Was critical care preformed (if so, how long)? @ -No Were there social determinants of health that impacted care today? How? (Homelessness, low income, unemployed, alcoholism, drug addiction, transportation, low edu. Level, literacy, decrease access to med. care, custodial, rehab)? @ -No Was there de-escalation of care discussed even if they declined (Discuss DNR or withdrawal of care, Hospice)? DNR status @ -No What co-morbidities impacted this encounter? (DM, HTN, Smoking, COPD, CAD, Cancer, CVA, ARF, Chemo, Hep., AIDS, mental health diagnosis, sleep apnea, morbid obesity)? @ -None Was patient admitted / discharged? Hospital course, mention meds given and route, prescriptions, significant lab abnormalities, going to OR and other pe rtinent info. @ -Based on the patient's presentation and physical exam, presents complaining of altered mental status. His is his primary caregiver. Is a history of a TBI. No obvious deficits at this time. We will obtain altered mental status workup. Vital signs are within acceptable limits.I do suspect the patient's complaints likely secondary to taking Percocet which may be started on his baseline [place]. EKG shows no signs of acute ischemia. CT brain and chest x-ray unremarkable. Patient's labs remarkable for mild leukocytosis of 11. Remainder of the labs un remarkable. Urine is still pending at this time. On reevaluation, patient is back to his normal baseline. Patient's would like to take the patient home. We both agreed is likely the Percocet as this is the only medication change in after taking endorses when he had the symptoms. He'll stop taking Percocet at this time. Patient will be given a starter pack of Tylenol 3. Patient's was in agreement this plan. Strict return precautions discussed. I did offer observation admission which was declined. I will provide the patient with a prescription for starter pack of Tylenol 3. I instructed the patient to follow up with their PCP in the next 1-3 days. I explained that the patient should return to the emergency department if they experience any worsening symptoms. Strict return precautions were discussed with the patient. The patient expressed understanding of these instructions. I answered all questions that the patient had. The patient was discharged home in good condition with their prescriptions and follow up information. Undiagnosed new problem with uncertain prognosis? @ -No Drug Therapy requiring intensive monitoring for toxicity (Heparin, Nitro, Insulin, Cardizem)? @ -No Were any procedures done? @ -No Diagnosis/symptom? @ -altered mentation, likely secondary to medication, resolved Acute, or Chronic, or Acute on Chronic? @ -Acute Uncomplicated (without systemic symptoms) or Complicated (systemic symptoms)? @ -Complicated Side effects of treatment? @ -No Exacerbation, Progression, or Severe Exacerbation? @ -No Poses a threat to life or bodily function? How? (Chest pain, [place], SC, pneumonia, PE, COPD, DKA, ARF, appy, cholecystitis, CVA, Diverticulitis, Homicidal, Suicidal, threat to staff... and all critical care pts) @ -Yes - Lab Data Result diagrams: 06/11/23 17:35 06/11/23 17:35 Lab Results 06/11/23 06/11/23 06/11/23 Range/Units 17:35 17:35 17:35 WBC 11.4 H (3.8-10.6) k/uL RBC 5.35 (4.30-5.90) m/uL Hgb 16.8 (13.0-17.5) gm/dL Hct 50.9 (39.0-53.0) % MCV 95.1 (80.0-100.0) fL MCH 31.4 (25.0-35.0) pg MCHC 33.1 (31.0-37.0) g/dL RDW 13.2 (11.5-15.5) % Plt Count 310 (150-450) k/uL MPV 8.5 Neutrophils % 47 % Lymphocytes % 40 % Monocytes % 6 % Eosinophils % 3 % Basophils % 1 % Neutrophils # 5.3 (1.3-7.7) k/uL Lymphocytes # 4.6 (1.0-4.8) k/uL Monocytes # 0.7 (0-1.0) k/uL Eosinophils # 0.4 (0-0.7) k/uL Basophils # 0.1 (0-0.2) k/uL PT 10.4 (10.0-12.5) sec INR 0.9 (<1.2) APTT 25.8 (22.0-30.0) sec Sodium (137-145) mmol/L Potassium (3.5-5.1) mmol/L Chloride (98-107) mmol/L Carbon Dioxide (22-30) mmol/L Anion Gap mmol/L BUN (9-20) mg/dL Creatinine (0.66-1.25) mg/dL Est GFR (CKD-EPI)AfAm (>60 ml/min/1.73 sqM) Est GFR (CKD-EPI)NonAf (>60 ml/min/1.73 sqM) Glucose (74-99) mg/dL Calcium (8.4-10.2) mg/dL Total Bilirubin (0.2-1.3) mg/dL AST (17-59) U/L ALT (4-49) U/L Alkaline Phosphatase (38-126) U/L Ammonia (<30) umol/L Troponin I (0.000-0.034) ng/mL Total Protein (6.3-8.2) g/dL Albumin (3.5-5.0) g/dL Urine Color Light Yellow Urine Appearance Clear (Clear) Urine pH 7.0 (5.0-8.0) Ur Specific [place] 1.017 (1.001-1.035) Urine Protein Negative (Negative) Urine Glucose (UA) Negative (Negative) Urine Ketones Negative (Negative) Urine Blood Negative (Negative) Urine Nitrite Negative (Negative) Urine Bilirubin Negative (Negative) Urine Urobilinogen <2.0 (<2.0) mg/dL Ur Leukocyte Esterase Negative (Negative) Urine Opiates Screen Not Detected (NotDetected) Ur Oxycodone Screen Detected H (NotDetected) Urine Methadone Screen Not Detected (NotDetected) Ur Barbiturates Screen Not Detected (NotDetected) U Tricyclic Antidepress Detected H (NotDetected) Ur Phencyclidine Scrn Not Detected (NotDetected) Ur Amphetamines Screen Not Detected (NotDetected) U Methamphetamines Scrn Not Detected (NotDetected) U Benzodiazepines Scrn Not Detected (NotDetected) Urine Cocaine Screen Not Detected (NotDetected) U Marijuana (THC) Screen Not Detected (NotDetected) Serum Alcohol mg/dL Influenza Type A (PCR) (Not Detectd) Influenza Type B (PCR) (Not Detectd) RSV (PCR) (Not Detectd) SARS-CoV-2 (PCR) (Not Detectd) 06/11/23 06/11/23 06/11/23 Range/Units 17:35 17:35 17:35 WBC (3.8-10.6) k/uL RBC (4.30-5.90) m/uL Hgb (13.0-17.5) gm/dL Hct (39.0-53.0) % MCV (80.0-100.0) fL MCH (25.0-35.0) pg MCHC (31.0-37.0) g/dL RDW (11.5-15.5) % Plt Count (150-450) k/uL MPV Neutrophils % % Lymphocytes % % Monocytes % % Eosinophils % % Basophils % % Neutrophils # (1.3-7.7) k/uL Lymphocytes # (1.0-4.8) k/uL Monocytes # (0-1.0) k/uL Eosinophils # (0-0.7) k/uL Basophils # (0-0.2) k/uL PT (10.0-12.5) sec INR (<1.2) APTT (22.0-30.0) sec Sodium 143 (137-145) mmol/L Potassium 4.3 (3.5-5.1) mmol/L Chloride 103 (98-107) mmol/L Carbon Dioxide 31 H (22-30) mmol/L Anion Gap 9 mmol/L BUN 13 (9-20) mg/dL Creatinine 0.70 (0.66-1.25) mg/dL Est GFR (CKD-EPI)AfAm >90 (>60 ml/min/1.73 sqM) Est GFR (CKD-EPI)NonAf >90 (>60 ml/min/1.73 sqM) Glucose 116 H (74-99) mg/dL Calcium 10.3 H (8.4-10.2) mg/dL Total Bilirubin 0.7 (0.2-1.3) mg/dL AST 32 (17-59) U/L ALT 29 (4-49) U/L Alkaline Phosphatase 101 (38-126) U/L Ammonia <9 (<30) umol/L Troponin I <0.012 (0.000-0.034) ng/mL Total Protein 7.9 (6.3-8.2) g/dL Albumin 4.6 (3.5-5.0) g/dL Urine Color Urine Appearance (Clear) Urine pH (5.0-8.0) Ur Specific [place] (1.001-1.035) Urine Protein (Negative) Urine Glucose (UA) (Negative) Urine Ketones (Negative) Urine Blood (Negative) Urine Nitrite (Negative) Urine Bilirubin (Negative) Urine Urobilinogen (<2.0) mg/dL Ur Leukocyte Esterase (Negative) Urine Opiates Screen (NotDetected) Ur Oxycodone Screen (NotDetected) Urine Methadone Screen (NotDetected) Ur Barbiturates Screen (NotDetected) U Tricyclic Antidepress (NotDetected) Ur Phencyclidine Scrn (NotDetected) Ur Amphetamines Screen (NotDetected) U Methamphetamines Scrn (NotDetected) U Benzodiazepines Scrn (NotDetected) Urine Cocaine Screen (NotDetected) U Marijuana (THC) Screen (NotDetected) Serum Alcohol <10 mg/dL Influenza Type A (PCR) (Not Detectd) Influenza Type B (PCR) (Not Detectd) RSV (PCR) (Not Detectd) SARS-CoV-2 (PCR) (Not Detectd) 06/11/23 Range/Units 17:35 WBC (3.8-10.6) k/uL RBC (4.30-5.90) m/uL Hgb (13.0-17.5) gm/dL Hct (39.0-53.0) % MCV (80.0-100.0) fL MCH (25.0-35.0) pg MCHC (31.0-37.0) g/dL RDW (11.5-15.5) % Plt Count (150-450) k/uL MPV Neutrophils % % Lymphocytes % % Monocytes % % Eosinophils % % Basophils % % Neutrophils # (1.3-7.7) k/uL Lymphocytes # (1.0-4.8) k/uL Monocytes # (0-1.0) k/uL Eosinophils # (0-0.7) k/uL Basophils # (0-0.2) k/uL PT (10.0-12.5) sec INR (<1.2) APTT (22.0-30.0) sec Sodium (137-145) mmol/L Potassium (3.5-5.1) mmol/L Chloride (98-107) mmol/L Carbon Dioxide (22-30) mmol/L Anion Gap mmol/L BUN (9-20) mg/dL Creatinine (0.66-1.25) mg/dL Est GFR (CKD-EPI)AfAm (>60 ml/min/1.73 sqM) Est GFR (CKD-EPI)NonAf (>60 ml/min/1.73 sqM) Glucose (74-99) mg/dL Calcium (8.4-10.2) mg/dL Total Bilirubin (0.2-1.3) mg/dL AST (17-59) U/L ALT (4-49) U/L Alkaline Phosphatase (38-126) U/L Ammonia (<30) umol/L Troponin I (0.000-0.034) ng/mL Total Protein (6.3-8.2) g/dL Albumin (3.5-5.0) g/dL Urine Color Urine Appearance (Clear) Urine pH (5.0-8.0) Ur Specific [place] (1.001-1.035) Urine Protein (Negative) Urine Glucose (UA) (Negative) Urine Ketones (Negative) Urine Blood (Negative) Urine Nitrite (Negative) Urine Bilirubin (Negative) Urine Urobilinogen (<2.0) mg/dL Ur Leukocyte Esterase (Negative) Urine Opiates Screen (NotDetected) Ur Oxycodone Screen (NotDetected) Urine Methadone Screen (NotDetected) Ur Barbiturates Screen (NotDetected) U Tricyclic Antidepress (NotDetected) Ur Phencyclidine Scrn (NotDetected) Ur Amphetamines Screen (NotDetected) U Methamphetamines Scrn (NotDetected) U Benzodiazepines Scrn (NotDetected) Urine Cocaine Screen (NotDetected) U Marijuana (THC) Screen (NotDetected) Serum Alcohol mg/dL Influenza Type A (PCR) Not Detected (Not Detectd) Influenza Type B (PCR) Not Detected (Not Detectd) RSV (PCR) Not Detected (Not Detectd) SARS-CoV-2 (PCR) Not Detected (Not Detectd) - EKG Data -: EKG Interpreted by Me EKG Comments: 12-lead Electrocardiogram Interpretation Note EKG was reviewed and interpreted by myself. 12-lead ECG performed at 1746 is interpreted by me as revealing normal sinus rhythm at a rate of 76 beats per minute. [place] is normal. PA interval is 176 ms, QRS durations 107 ms, QTc is 41 0 ms.. There were no ST or T wave abnormalities to suggest myocardial ischemia or injury. R wave progression across the precordium was satisfactory. By my interpretation this EKG is non-diagnostic for acute ischemia. Disposition Clinical Impression: Fatigue, Confusion Disposition: HOME SELF-CARE Condition: Good Instructions (If sedation given, give patient instructions): Altered Mental Status (ED) Is patient prescribed a controlled substance at d/c from ED?: No Referrals: Rishi Pettit DO [Primary Care Provider] - 1-2 days Time of Disposition: 19:35
[2023-06-11 19:24] LABS: Amphetamine Screen,Urine Not Detected (NotDetected); Barbiturate Screen,Urine Not Detected (NotDetected); Benzodiazepines Screen,Urine Not Detected (NotDetected); Cocaine Screen,Urine Not Detected (NotDetected); Methadone Screen, Urine Not Detected (NotDetected); Opiate Screen,Urine Not Detected (NotDetected); Oxycodone Screen, Urine Detected (NotDetected); Phencyclidine Screen,Urine Not Detected (NotDetected); Tricyclic Antidepressant,Urine Detected (NotDetected); Urn Cannabinoid Scrn Not Detected (NotDetected)
[2023-06-11 19:32] LABS: Appearance,Urine Clear (Clear); Bilirubin,Urine Negative (Negative); Blood,Urine Negative (Negative); Color,Urine Light Yellow; Glucose,Urine (UA) Negative (Negative); Ketones,Urine Negative (Negative); Leukocyte Esterase,Urine Negative (Negative); Nitrite,Urine Negative (Negative); Protein,Urine Negative (Negative); Specific Gravity,Urine 1.017 (1.001-1.035); Urobilinogen,Urine <2.0 mg/dL (<2.0)
[2023-06-11] MEDS ORDERED: ACET/COD 300 MG/30 MG STARTER PACK 6 TAB BTL PO STA (19:59)
[2023-06-11 20:29] VITALS: BP 135/74; PULSE 72; RESP 16
== END 2023-06-11 20:23 | disposition home or self-care (01) ==
LOC: EC 16:38
DX: R41.82 Altered mental status, unspecified (principal); R53.83 Other fatigue; D72.829 Elevated white blood cell count, unspecified; E11.40 Type 2 diabetes mellitus with diabetic neuropathy, unspecified; I10 Essential (primary) hypertension; F31.9 Bipolar disorder, unspecified; F41.9 Anxiety disorder, unspecified; F17.200 Nicotine dependence, unspecified, uncomplicated; E78.5 Hyperlipidemia, unspecified; Z20.822 Contact with and (suspected) exposure to COVID-19; Z79.84 Long term (current) use of oral hypoglycemic drugs; Z79.82 Long term (current) use of aspirin; Z79.899 Other long term (current) drug therapy; Z88.0 Allergy status to penicillin; Z88.2 Allergy status to sulfonamides; Z88.6 Allergy status to analgesic agent; Z88.8 Allergy status to other drugs, medicaments and biological substances; Z90.49 Acquired absence of other specified parts of digestive tract
CPT/HCPCS: 99285 ×2; 36415; 93005; 80053; 82140; 84484; 85025; 85610; 85730; 81003; 80306; 87636; 71046; 70450; G0480; 80320

== ENCOUNTER 2023-07-21 12:45 | Emergency (ER) | payer MEDICARE, OTHER ==
--- NOTE | 2023-07-21 12:55 | ED ---
Wound/Laceration HPI - General Stated Complaint: Hand Laceration Time Seen by Provider: 07/21/23 12:54 Source: patient, family, RN notes reviewed Mode of arrival: wheelchair - History of Present Illness Initial Comments: Patient is a 68-year-old male presented to ER with chief complaint of laceration. Patient states he was cutting onions and accidentally cut his hand on a mandallion slicer. Denies any other injuries. States he takes a baby aspirin daily. States he would like his bleeding to be "cauterized". Patient has full active range of motion. Tetanus is up-to-date. Denies any blood thin ners. - Related Data Home Medications Medication Instructions Recorded Confirmed Amitriptyline HCl [Elavil] 75 mg PO HS 07/25/14 06/11/23 Aspirin EC [Ecotrin Low Dose] 81 mg PO DAILY 07/25/14 06/11/23 Atorvastatin [Lipitor] 10 mg PO HS 07/25/14 06/11/23 Potassium Chloride [K-Tab ER] 10 meq PO DAILY 07/25/14 06/11/23 Sertraline HCl [Zoloft] 100 mg PO HS 07/25/14 06/11/23 lamoTRIgine [LaMICtal] 150 mg PO BID 07/25/14 06/11/23 metFORMIN HCL [Glucophage] 500 mg PO BID 07/25/14 06/11/23 Gabapentin 800 mg PO BID 03/06/17 06/11/23 Metoprolol Tartrate [Lopressor] 25 mg PO BID 06/11/23 06/11/23 Multivit/Iron Sulf/Folic Acid 1 tab PO DAILY 06/11/23 06/11/23 [Multivitamin with Iron] [place]-3/Dha/Epa/Fish Oil [Fish Oil 1 cap PO DAILY 06/11/23 06/11/23 1,000 mg Softgel] hydroCHLOROthiazide [Hydrodiuril] 25 mg PO DAILY 06/11/23 06/11/23 lisinopriL [Zestril] 10 mg PO HS 06/11/23 06/11/23 oxyCODONE-APAP 5-325MG [Percocet 1 tab PO ONCE 06/11/23 06/11/23 5-325 mg] Allergies Allergy/AdvReac Type Severity Reaction Status Date / Time acetaminophen [From Percocet] Allergy Hallucinati Verified 07/21/23 12:57 ons codeine Allergy Hallucinati Verified 07/21/23 12:56 ons donepezil HCl [From Aricept] Allergy Hallucinati Verified 07/21/23 12:56 ons ibuprofen Allergy Anaphylaxis Verified 07/21/23 12:56 oxycodone [From Percocet] Allergy Hallucinati Verified 07/21/23 12:57 ons Penicillins Allergy Unknown Verified 07/21/23 12:56 Childhood Sulfa (Sulfonamide Allergy Unknown Verified 07/21/23 12:56 Antibiotics) Childhood Review of Systems ROS Statement: Those systems with pertinent positive or pertinent negative responses have been documented in the HPI. ROS Other: All systems not noted in ROS Statement are negative. Past Medical History Past Medical History: Diabetes Mellitus, Hyperlipidemia, Hypertension, Rheumatoid Arthritis (RA) Additional Past Medical History / Comment(s): brain injury, neuropathy, chronic back and shoulder pain History of Any Multi-Drug Resistant Organisms: None Reported Past Surgical History: Cholecystectomy, Hernia Repair Additional Past Surgical History / Comment(s): splenectomy, neck surg, left eye, carpal tunnel surgery Past Psychological History: Anxiety, Bipolar, Depression, Schizophrenia Smoking Status: Current every day smoker Past Alcohol Use History: Daily, Heavy Past Drug Use History: None Reported General Exam - General Exam Comments Initial Comments: Visual Physical Exam Vital signs reviewed General: Well-appearing, nontoxic, no acute distress. Head: Normocephalic, atraumatic Eyes: PERRLA, EOMI ENT: Airway patent Chest: Nonlabored breathing Skin: No visual rash, normal skin tone, laceration to right thenar eminence. Active bleeding present. Neuro: Alert and oriented 3 Musculoskeletal: No gross abnormalities General appearance: alert, in no apparent distress Head exam: Present: atraumatic, normocephalic, normal inspection Respiratory exam: Present: normal lung sounds bilaterally. Absent: respiratory distress, wheezes, rales, rhonchi, stridor Cardiovascular Exam: Present: regular rate, normal rhythm, normal heart sounds. Absent: systolic murmur, diastolic murmur, rubs, gallop, clicks Neurological exam: Present: alert, oriented X3, CN II-XII intact Psychiatric exam: Present: normal affect, normal mood Skin exam: Present: other (2 cm superficial avulsion to right thenar eminence. 2+ right radial pulse. Sensation intact. Patient has full active range of motion. Structures intact.) Course Vital Signs 07/21/23 12:53 Temperature 98.6 F Pulse Rate 69 Respiratory 20 Rate Blood Pressure 117/71 O2 Sat by Pulse 95 Oximetry Medical Decision Making - Medical Decision Making I performed the quick note portion of this chart. Electronically signed by Brianda Cortez PA-C Was pt. sent in by a medical professional or institution (, [facility], FIRST ASSISTANT, urgent care, hospital, or detention...) When possible be specific @ -No Did you speak to anyone other than the patient for history (EMS, parent, family, police, friend...)? What history was obtained from this source @ -No Did you review nursing and triage notes (agree or disagree)? Why? @ -I reviewed and agree with nursing and triage notes Were old charts reviewed (outside hosp., previous admission, EMS record, old EKG, old radiological studies, urgent care reports/EKG's, detention records)? Report findings @ -No old charts were reviewed Differential Diagnosis (chest pain, altered mental status, abdominal pain women, abdominal pain men, vaginal bleeding, weakness, fever, dyspnea, syncope, headache, dizziness, GI bleed, back pain, seizure, CVA, palpatations, mental health, musculoskeletal)? @ -Laceration, abrasion, contusion, avulsion, foreign body this list is not meant to be all-inclusive EKG interpreted by me (3pts min.). @ -[None X-rays interpreted by me (1pt min.). @ -None done CT interpreted by me (1pt min.). @ -None done U/S interpreted by me (1pt. min.). @ -None done What testing was considered but not performed or refused? (CT, X-rays, U/S, labs)? Why? @ -None What meds were considered but not given or refused? Why? @ -None Did you discuss the management of the patient with other professionals (professionals i.e. MURIEL Campbell, FIRST ASSISTANT, lab, RT, psych nurse, social sciences professor, vegetable tester, teacher, building drafting officer, test case developer)? Give summary @ -No Was smoking cessation discussed for >3mins.? @ -I discussed smoking cessation for greater than 3 minutes. The risk of smoking were discussed with the patient including but not limited to risks of cancer, stroke, coronary artery disease and COPD. Also discussed with patient were multiple methods of quitting smoking. Lastly we discussed the financial cost of smoking. Was critical care preformed (if so, how long)? @ -No Were there social determinants of health that impacted care today? How? (Homelessness, low income, unemployed, alcoholism, drug addiction, transportation, low edu. Level, literacy, decrease access to med. care, halfway, rehab)? @ -No Was there de-escalation of care discussed even if they declined (Discuss DNR or withdrawal of care, Hospice)? DNR status @ -No What co-morbidities impacted this encounter? (DM, HTN, Smoking, COPD, CAD, Cancer, CVA, ARF, Chemo, Hep., AIDS, mental health diagnosis, sleep apnea, morbid obesity)? @ -Smoker Was patient admitted / discharged? Hospital course, mention meds given and route, prescriptions, significant lab abnormalities, going to OR and other pertinent info. @ -Discharge. Patient is a 68-year-old male presented to the ER with a chief complaint of a laceration. History and physical exam completed. Vital stable. 2 cm actively bleeding laceration to right thenar eminence. Patient has full active range of motion. Right upper extremity neurovascular intact. Patient no signs of acute distress. Tetanus is up-to-date. Gelfoam placed over wound and wrapped with gauze and Coban as sutures were not appropriate. Wound care was discussed with patient. I advised him to follow-up with PCP. Return parameters discussed. Patient discharged stable condition with follow-up to PCP. Patient expressed understanding and agreement with care plan. Undiagnosed new problem with uncertain prognosis? @ -No Drug Therapy requiring intensive monitoring for toxicity (Heparin, Nitro, Insulin, Cardizem)? @ -No Were any procedures done? @ -No Diagnosis/symptom? @ -Avulsion wound Acute, or Chronic, or Acute on Chronic? @ -Acute Uncomplicated (without systemic symptoms) or Complicated (systemic symptoms)? @ -Uncomplicated Side effects of treatment? @ -No Exacerbation, Progression, or Severe Exacerbation? @ -No Poses a threat to life or bodily function? How? (Chest pain, [place], [place], pneumonia, PE, COPD, DKA, ARF, appy, cholecystitis, CVA, Diverticulitis, Homicidal, Suicidal, threat to staff... and all critical care pts) @ -No Disposition Clinical Impression: Laceration Disposition: HOME SELF-CARE Condition: Stable Instructions (If sedation given, give patient instructions): Acute Wound Care (ED) Additional Instructions: Please keep area clean and dry. Monitor for signs of infection including surrounding redness or drainage. Follow-up with PCP. Return to the ER for any new or worsening symptoms. Is patient prescribed a controlled substance at d/c from ED?: No Referrals: Rishi Pettit DO [Primary Care Provider] - 1-2 days Time of Disposition: 13:33
[2023-07-21 13:18] VITALS: BP 117/71; PULSE 69; RESP 20; TEMP 98.6
[2023-07-21] MEDS: GELATIN SPONGE,ABSORB (SMALL) 1 EACH SPONGE TOPICAL STA (13:32)
== END 2023-07-21 13:48 | disposition home or self-care (01) ==
LOC: EC 12:45
DX: S61.411A Laceration without foreign body of right hand, initial encounter (principal); E11.40 Type 2 diabetes mellitus with diabetic neuropathy, unspecified; I10 Essential (primary) hypertension; E78.5 Hyperlipidemia, unspecified; F31.9 Bipolar disorder, unspecified; F41.9 Anxiety disorder, unspecified; F17.210 Nicotine dependence, cigarettes, uncomplicated; Z79.84 Long term (current) use of oral hypoglycemic drugs; Z79.82 Long term (current) use of aspirin; Z79.899 Other long term (current) drug therapy; Z88.0 Allergy status to penicillin; Z88.2 Allergy status to sulfonamides; Z88.5 Allergy status to narcotic agent; Z88.6 Allergy status to analgesic agent; Z88.8 Allergy status to other drugs, medicaments and biological substances
CPT/HCPCS: 12001; 99282; 99406

== ENCOUNTER → 2023-09-01 | Outpatient (CLI) | payer MEDICARE, OTHER ==
[2023-09-01 10:17] LABS: INR 0.9 (<1.2); Partial Thromboplastin Time 26.5 sec (22.0-30.0); Prothrombin Time 9.9 sec (10.0-12.5)
[2023-09-01 15:31] LABS: Basophils # (A) 0.12 X 10*3/uL (0.00-0.10); Basophils % (A) 1.1 %; Eosinophils # (A) 0.71 X 10*3/uL (0.04-0.35); Eosinophils % (A) 6.7 %; HCT 46.6 % (39.6-50.0); HGB 15.3 g/dL (13.0-17.0); Lymphocytes # (A) 4.27 X 10*3/uL (0.90-5.00); Lymphocytes % (A) 40.2 %; MCH 31.6 pg (27.0-32.0); MCHC 32.8 g/dL (32.0-37.0); MCV 96.3 FL (80.0-97.0); Mean Platelet Volume 10.9 FL (9.5-12.2); Monocytes # (A) 1.05 X 10*3/uL (0.20-1.00); Monocytes % (A) 9.9 %; NRBC Per 100 WBC 0 X 10*3/uL (0.00-0.01); Neutrophils # (A) 4.43 X 10*3/uL (1.80-7.70); Neutrophils % (A) 41.8 %; Platelet Count 294 X 10*3/uL (140-440); RBC 4.84 X 10*6/uL (4.40-5.60); WBC 10.61 X 10*3/uL (4.50-10.00)
[2023-09-01 16:03] LABS: ALT 26 U/L (10-49); AST 15 U/L (14-35); Albumin 4.2 g/dL (3.8-4.9); Alkaline Phosphatase 115 U/L (41-126); Blood Urea Nitrogen 11.2 mg/dL (9.0-27.0); Calcium 9.4 mg/dL (8.7-10.3); Carbon Dioxide 26.5 mmol/L (21.6-31.8); Chloride 100 mmol/L (96-109); Chol/HDL Ratio 6.52 Ratio; Creatine Kinase 78 U/L (35-257); Globulin 2.8 g/dL (1.6-3.3); Glucose 106 mg/dL (70-110); Potassium 4.1 mmol/L (3.5-5.5); Sodium 138 mmol/L (135-145); Total Bilirubin 0.2 mg/dL (0.3-1.2)
== END | disposition home or self-care (01) ==
LOC: LABWHC1 09:35
PROVIDERS: ATTEND Physician Assistant Medical
DX: Z01.812 Encounter for preprocedural laboratory examination (principal); I10 Essential (primary) hypertension; E11.42 Type 2 diabetes mellitus with diabetic polyneuropathy; G47.00 Insomnia, unspecified; E78.2 Mixed hyperlipidemia; F33.0 Major depressive disorder, recurrent, mild
CPT/HCPCS: 36415; 80053; 80061; 82550; 83721; 84443; 85025; 85610; 85730

== ENCOUNTER → 2023-09-16 | Outpatient (CLI) | payer MEDICARE, OTHER ==
--- NOTE | 2023-09-16 18:42 | XR ---
EXAMINATION TYPE: XR chest 2V DATE OF EXAM: 09/16/2023 COMPARISON: 06/11/2023 HISTORY: 68-year-old male E782,I10 HYPERLIPIDEMIA, HTN TECHNIQUE: Frontal and lateral views FINDINGS: Reverse left shoulder arthroplasty. Heart normal size. Aorta and pulmonary vasculature within normal limits. Hyperinflation. Strandy atelectasis at the left base. IMPRESSION: COPD. Some strandy atelectasis at the left base. No acute process seen.
== END | disposition home or self-care (01) ==
LOC: RADXRYALE 10:52
PROVIDERS: ATTEND Physician Assistant Medical
DX: J44.9 Chronic obstructive pulmonary disease, unspecified (principal); I10 Essential (primary) hypertension; E78.2 Mixed hyperlipidemia; J98.11 Atelectasis
CPT/HCPCS: 71046

== ENCOUNTER 2023-10-22 18:41 | Inpatient (IN) | payer MEDICARE, OTHER ==
--- NOTE | 2023-10-22 21:38 | ED ---
General Adult HPI - General Chief complaint: Chest Pain Stated complaint: Chest pain, back pain Time Seen by Provider: 10/22/23 21:24 Source: patient, RN notes reviewed, old records reviewed Mode of arrival: wheelchair Limitations: no limitations - History of Present Illness Initial comments: 68-year-old male presenting for evaluation of chest discomfort. Patient symptoms began earlier today while eating. There was associated episode of vomiting which did seem to elicit some of the pain or at least worsen the pain. Patient is 2 weeks postop anterior approach of cervical fusion. This was done at outside hospital. Patient is also being weaned off of his pain medication currently. - Related Data Home Medications Medication Instructions Recorded Confirmed Amitriptyline HCl [Elavil] 75 mg PO HS 07/25/14 06/11/23 Aspirin EC [Ecotrin Low Dose] 81 mg PO DAILY 07/25/14 06/11/23 Atorvastatin [Lipitor] 10 mg PO HS 07/25/14 06/11/23 Potassium Chloride [K-Tab ER] 10 meq PO DAILY 07/25/14 06/11/23 Sertraline HCl [Zoloft] 100 mg PO HS 07/25/14 06/11/23 lamoTRIgine [LaMICtal] 150 mg PO BID 07/25/14 06/11/23 metFORMIN HCL [Glucophage] 500 mg PO BID 07/25/14 06/11/23 Gabapentin 800 mg PO BID 03/06/17 06/11/23 Metoprolol Tartrate [Lopressor] 25 mg PO BID 06/11/23 06/11/23 Multivit/Iron Sulf/Folic Acid 1 tab PO DAILY 06/11/23 06/11/23 [Multivitamin with Iron] [place]-3/Dha/Epa/Fish Oil [Fish Oil 1 cap PO DAILY 06/11/23 06/11/23 1,000 mg Softgel] hydroCHLOROthiazide [Hydrodiuril] 25 mg PO DAILY 06/11/23 06/11/23 lisinopriL [Zestril] 10 mg PO HS 06/11/23 06/11/23 oxyCODONE-APAP 5-325MG [Percocet 1 tab PO ONCE 06/11/23 06/11/23 5-325 mg] Allergies Allergy/AdvReac Type Severity Reaction Status Date / Time acetaminophen [From Percocet] Allergy Hallucinati Verified 10/22/23 18:46 ons codeine Allergy Hallucinati Verified 10/22/23 18:46 ons donepezil HCl [From Aricept] Allergy Hallucinati Verified 10/22/23 18:46 ons ibuprofen Allergy Anaphylaxis Verified 10/22/23 18:46 oxycodone [From Percocet] Allergy Hallucinati Verified 10/22/23 18:46 ons Penicillins Allergy Unknown Verified 10/22/23 18:46 Childhood Sulfa (Sulfonamide Allergy Unknown Verified 10/22/23 18:46 Antibiotics) Childhood Review of Systems ROS Statement: Those systems with pertinent positive or pertinent negative responses have been documented in the HPI. ROS Other: All systems not noted in ROS Statement are negative. Past Medical History Past Medical History: Diabetes Mellitus, Hyperlipidemia, Hypertension, Rheumatoid Arthritis (RA) Additional Past Medical History / Comment(s): brain injury, neuropathy, chronic back and shoulder pain History of Any Multi-Drug Resistant Organisms: None Reported Past Surgical History: Cholecystectomy, Hernia Repair Additional Past Surgical History / Comment(s): splenectomy, neck surg, left eye, carpal tunnel surgery. cervial and shoulder surgery Past Psychological History: Anxiety, Bipolar, Depression, Schizophrenia Smoking Status: Current every day smoker Past Alcohol Use History: Daily, Heavy Past Drug Use History: None Reported General Exam Limitations: no limitations General appearance: alert, in no apparent distress Head exam: Present: atraumatic, normocephalic Eye exam: Present: normal appearance, PERRL ENT exam: Present: normal exam Neck exam: Present: normal inspection, other (Giltner collar in place, incision is well-healed without signs of infection). Absent: tenderness, meningismus, full ROM Respiratory exam: Present: normal lung sounds bilaterally. Absent: respiratory distress, wheezes Cardiovascular Exam: Present: regular rate, normal rhythm GI/Abdominal exam: Present: soft. Absent: distended, tenderness Extremities exam: Present: normal inspection, normal capillary refill. Absent: pedal edema Neurological exam: Present: alert, oriented X3, CN II-XII intact. Absent: motor sensory deficit Psychiatric exam: Present: normal affect, normal mood Skin exam: Present: warm, dry Course Vital Signs 10/22/23 10/22/23 10/23/23 18:43 23:44 02:24 Temperature 99.9 F H Pulse Rate 98 94 86 Respiratory 18 20 16 Rate Blood Pressure 142/66 126/71 133/79 O2 Sat by Pulse 93 L 91 L 94 L Oximetry Medical Decision Making - Medical Decision Making Was pt. sent in by a medical professional or institution (MURIEL Campbell, EXPRESSIVE THERAPIST, urgent care, hospital, or skilled nursing...) When possible be specific @ -No Did you speak to anyone other than the patient for history (EMS, parent, family, police, friend...)? What history was obtained from this source @ -No Did you review nursing and triage notes (agree or disagree)? Why? @ -I reviewed and agree with nursing and triage notes Were old charts reviewed (outside hosp., previous admission, EMS record, old EKG, old radiological studies, urgent care reports/EKG's, skilled nursing records)? Report findings @ -No old charts were reviewed Differential Diagnosis (chest pain, altered mental status, abdominal pain women, abdominal pain men, vaginal bleeding, weakness, fever, dyspnea, syncope, headache, dizziness, GI bleed, back pain, seizure, CVA, palpatations, mental health, musculoskeletal)? @ -Not applicable EKG interpreted by me (3pts min.). @ -Sinus rhythm rate of 95, [place] interval 150, QRS duration [address] segment elevation X-rays interpreted by me (1pt min.). @ -None done CT interpreted by me (1pt min.). @ -CT angiography negative for PE or acute findings.] U/S interpreted by me (1pt. min.). @ -None done What testing was considered but not performed or refused? (CT, X-rays, U/S, labs)? Why? @ -None What meds were considered but not given or refused? Why? @ -None Did you discuss the management of the patient with other professionals (professionals i.e. MURIEL Campbell, EXPRESSIVE THERAPIST, lab, RT, psych nurse, high school social studies tutor, outside plant engineer, teacher, correction officer reformatory, rn field case manager)? Give summary @ Dr. Quevedo Was smoking cessation discussed for >3mins.? @ -No Was critical care preformed (if so, how long)? @ -No Were there social determinants of health that impacted care today? How? (Homelessness, low income, unemployed, alcoholism, drug addiction, transportation, low edu. Level, literacy, decrease access to med. care, [facility], rehab)? @ -No Was there de-escalation of care discussed even if they declined (Discuss DNR or withdrawal of care, Hospice)? DNR status @ -No What co-morbidities impacted this encounter? (DM, HTN, Smoking, COPD, CAD, Cancer, CVA, ARF, Chemo, Hep., AIDS, mental health diagnosis, sleep apnea, morbid obesity)? @Recent cervical fusion Was patient admitted / discharged? Hospital course, mention meds given and route, prescriptions, significant lab abnormalities, going to OR and other pertinent info. @ -68-year-old male with chest pain and vomiting. Patient's symptoms are overall atypical. His EKG is sinus without ST segment elevation. I did perform CT angiography given the recent surgery this was negative for PE, no acute findings. Patient has leukocytosis of 17, otherwise unremarkable laboratory testing. Initial troponin is negative. Patient requires significant pain medication in the emergency department. He will be kept for intractable pain and serial cardiac enzymes. Case discussed with Dr. Quevedo who will admit. Undiagnosed new problem with uncertain prognosis? @ -No Drug Therapy requiring intensive monitoring for toxicity (Heparin, Nitro, Insulin, Cardizem)? @ -No Were any procedures done? @ -No Diagnosis/symptom? @ -[Chest pain, Acute, or Chronic, or Acute on Chronic? @ -Acute Uncomplicated (without systemic symptoms) or Complicated (systemic symptoms)? @ -Default Side effects of treatment? @ -No Exacerbation, Progression, or Severe Exacerbation? @ -No Poses a threat to life or bodily function? How? (Chest pain, [place], [place], pneumonia, PE, COPD, DKA, ARF, appy, cholecystitis, CVA, Diverticulitis, Homicidal, Suicidal, threat to staff... and all critical care pts) @ -Yes, chest pain - Lab Data Result diagrams: 10/22/23 19:00 10/22/23 19:00 Lab Results 10/22/23 10/22/23 10/22/23 Range/Units 19:00 19:00 19:00 WBC 17.7 H (3.8-10.6) k/uL RBC 4.65 (4.30-5.90) m/uL Hgb 14.6 (13.0-17.5) gm/dL Hct 45.4 (39.0-53.0) % MCV 97.7 (80.0-100.0) fL MCH 31.5 (25.0-35.0) pg MCHC 32.2 (31.0-37.0) g/dL RDW 12.7 (11.5-15.5) % Plt Count 436 (150-450) k/uL MPV 8.6 Neutrophils % 77 % Lymphocytes % 16 % Monocytes % 6 % Eosinophils % 1 % Basophils % 0 % Neutrophils # 13.5 H (1.3-7.7) k/uL Lymphocytes # 2.8 (1.0-4.8) k/uL Monocytes # 1.0 (0-1.0) k/uL Eosinophils # 0.1 (0-0.7) k/uL Basophils # 0.1 (0-0.2) k/uL PT 10.6 (10.0-12.5) sec INR 1.0 (<1.2) APTT 27.7 (22.0-30.0) sec Sodium 133 L (137-145) mmol/L Potassium 4.5 (3.5-5.1) mmol/L Chloride 98 (98-107) mmol/L Carbon Dioxide 24 (22-30) mmol/L Anion Gap 11 mmol/L BUN 19 (9-20) mg/dL Creatinine 0.76 (0.66-1.25) mg/dL Est GFR (CKD-EPI)AfAm >90 (>60 ml/min/1.73 sqM) Est GFR (CKD-EPI)NonAf >90 (>60 ml/min/1.73 sqM) Glucose 161 H (74-99) mg/dL Calcium 9.4 (8.4-10.2) mg/dL Magnesium 1.8 (1.6-2.3) mg/dL Total Bilirubin 0.8 (0.2-1.3) mg/dL AST 34 (17-59) U/L ALT 29 (4-49) U/L Alkaline Phosphatase 131 H (38-126) U/L Troponin I (0.000-0.034) ng/mL Total Protein 7.6 (6.3-8.2) g/dL Albumin 4.3 (3.5-5.0) g/dL Lipase 55 (23-300) U/L 10/22/23 Range/Units 19:00 WBC (3.8-10.6) k/uL RBC (4.30-5.90) m/uL Hgb (13.0-17.5) gm/dL Hct (39.0-53.0) % MCV (80.0-100.0) fL MCH (25.0-35.0) pg MCHC (31.0-37.0) g/dL RDW (11.5-15.5) % Plt Count (150-450) k/uL MPV Neutrophils % % Lymphocytes % % Monocytes % % Eosinophils % % Basophils % % Neutrophils # (1.3-7.7) k/uL Lymphocytes # (1.0-4.8) k/uL Monocytes # (0-1.0) k/uL Eosinophils # (0-0.7) k/uL Basophils # (0-0.2) k/uL PT (10.0-12.5) sec INR (<1.2) APTT (22.0-30.0) sec Sodium (137-145) mmol/L Potassium (3.5-5.1) mmol/L Chloride (98-107) mmol/L Carbon Dioxide (22-30) mmol/L Anion Gap mmol/L BUN (9-20) mg/dL Creatinine (0.66-1.25) mg/dL Est GFR (CKD-EPI)AfAm (>60 ml/min/1.73 sqM) Est GFR (CKD-EPI)NonAf (>60 ml/min/1.73 sqM) Glucose (74-99) mg/dL Calcium (8.4-10.2) mg/dL Magnesium (1.6-2.3) mg/dL Total Bilirubin (0.2-1.3) mg/dL AST (17-59) U/L ALT (4-49) U/L Alkaline Phosphatase (38-126) U/L Troponin I <0.012 (0.000-0.034) ng/mL Total Protein (6.3-8.2) g/dL Albumin (3.5-5.0) g/dL Lipase (23-300) U/L Disposition Clinical Impression: Chest pain Disposition: ADMITTED IP TO THIS HOSP Condition: Stable Is patient prescribed a controlled substance at d/c from ED?: No Referrals: Eva Rodríguez, PAC [REFERRING] - 1-2 days Time of Disposition: 03:46
[2023-10-22 21:50] LABS: Basophils # (A) 0.1 k/uL (0-0.2); Basophils % (A) 0 %; Eosinophils # (A) 0.1 k/uL (0-0.7); Eosinophils % (A) 1 %; HCT 45.4 % (39.0-53.0); HGB 14.6 gm/dL (13.0-17.5); Lymphocytes # (A) 2.8 k/uL (1.0-4.8); Lymphocytes % (A) 16 %; MCH 31.5 pg (25.0-35.0); MCHC 32.2 g/dL (31.0-37.0); MCV 97.7 fL (80.0-100.0); Mean Platelet Volume 8.6; Monocytes % (A) 6 %; Neutrophils # (A) 13.5 k/uL (1.3-7.7); Neutrophils % (A) 77 %; Platelet Count 436 k/uL (150-450); RBC 4.65 m/uL (4.30-5.90); RDW 12.7 % (11.5-15.5); WBC 17.7 k/uL (3.8-10.6)
[2023-10-22] MEDS: HYDROmorphone 1 MG/ML 1 ML SYRINGE IVP STA (21:57)
[2023-10-22 22:00] LABS: Prothrombin Time 10.6 sec (10.0-12.5)
[2023-10-22 22:01] LABS: Partial Thromboplastin Time 27.7 sec (22.0-30.0)
[2023-10-22 22:06] LABS: ALT 29 U/L (4-49); African American GFR (CKD) >90 (>60 ml/min/1.73 sqM); Albumin 4.3 g/dL (3.5-5.0); Blood Urea Nitrogen 19 mg/dL (9-20); Calcium 9.4 mg/dL (8.4-10.2); Carbon Dioxide 24 mmol/L (22-30); Glucose 161 mg/dL (74-99); Lipase 55 U/L (23-300); Non-African American GFR(CKD) >90 (>60 ml/min/1.73 sqM); Total Bilirubin 0.8 mg/dL (0.2-1.3); Total Protein 7.6 g/dL (6.3-8.2)
[2023-10-22 22:10] LABS: Anion Gap 11 mmol/L; Chloride 98 mmol/L (98-107); Sodium 133 mmol/L (137-145)
[2023-10-22 22:16] LABS: AST 34 U/L (17-59); Alkaline Phosphatase 131 U/L (38-126); Magnesium 1.8 mg/dL (1.6-2.3); Potassium 4.5 mmol/L (3.5-5.1)
[2023-10-23] MEDS: HYDROmorphone 1 MG/ML 1 ML SYRINGE IVP STA ×2 (00:08→02:19)
--- NOTE | 2023-10-23 02:28 | CT ---
EXAM: CT Angiography Chest With Intravenous Contrast CLINICAL HISTORY: ITS.REASON CT Reason: cp pos op TECHNIQUE: Axial computed tomographic angiography images of the chest with intravenous contrast. CTDI is 14.8 mGy and DLP is 456.9 mGy-cm. This CT exam was performed using one or more of the following dose reduction techniques: automated exposure control, adjustment of the mA and/or kV according to patient size, and/or use of iterative reconstruction technique. MIP reconstructed images were created and reviewed. COMPARISON: No relevant prior studies available. FINDINGS: Pulmonary arteries: Unremarkable. No pulmonary embolism. Aorta: No acute findings. No thoracic aortic aneurysm. Lungs: Linear atelectasis both lower lobes. No mass. Pleural space: Unremarkable. No significant effusion. No pneumothorax. Heart: Unremarkable. No cardiomegaly. No significant pericardial effusion. No evidence of RV dysfunction. Bones/joints: No acute fracture. No dislocation. Soft tissues: Unremarkable. Lymph nodes: Unremarkable. No enlarged lymph nodes. IMPRESSION: No acute findings in the visualized arteries of the chest.
[2023-10-23] MEDS ORDERED: NALOXONE 0.4 MG/ML 1 ML VIAL IV PRN (03:43)
[2023-10-23] MEDS ORDERED: ONDANSETRON 4 MG/2 ML VIAL IVP PRN (03:43)
[2023-10-23] MEDS ORDERED: HYDROmorphone 0.5 MG/0.5 ML SYRINGE IVP PRN (03:43)
--- NOTE | 2023-10-23 04:03 | P.HPIM ---
History of Present Illness H&P Date: 10/23/23 Patient is a 68-year-old male with a PMH of TBI, hypertension, hyperlipidemia, type II DM, recent anterior cervical fusion who presents to the emergency room with complaints of chest pain. Patient reports that his pain medications had recently been adjusted as his orthopedic surgeons are planning for lumbar procedure in January and that they have completely discontinued his opiates over the past few days. He reports being at a park earlier today having food when he suddenly developed the chest tightness radiating to his back. He decided to come to the emergency room and reported ongoing pain, 10 out of 10 since his arrival which was minimally relieved with IV Dilaudid. He denied experiencing shortness of breath, nausea, vomiting, diaphoresis, or dizziness. Also denies fever, chills, cough, lower extremity swelling, lower extremity pain. Chest CTA in the emergency room was unremarkable with EKG showing sinus rhythm at 95 bpm with right axis deviation as reviewed by me. Laboratory evaluation was remarkable for WBC count 17.7, sodium 133, glucose 161, troponin less than 0.012. ED documentation reviewed and case discussed with ED provider. Review of systems: Pertinent positives and negatives as discussed in HPI, a complete review of systems was performed and all other systems are negative. Physical examination: Vital signs reviewed General: non toxic, no distress, appears at stated age, overweight Derm: no unusual rashes/lesions, warm Head: atraumatic, normocephalic, symmetric Eyes: EOMI, no lid lag, anicteric sclera, pupils equal round reactive to light ENT: Nose and ears atraumatic Neck: No cervical lymphadenopathy, trachea midline, supple, cervical collar in p lace Mouth: no lip lesion, mucus membranes moist Cardiovascular: S1S2 reg, no murmur, positive dorsalis pedis pulse bilateral, no edema Lungs: CTA bilateral, no rhonchi, no rales, no accessory muscle use Abdominal: soft, nontender to palpation, no guarding Ext: muscle strength 5 out of 5 in all 4 extremities grossly, no gross muscle atrophy, no contractures, Neuro: CN II-XI grossly intact, no gross focal neuro deficits Psych: Alert, oriented, appropriate affect Assessment: Chest pain, rule out ACS Leukocytosis, likely secondary to acute stressor with no signs of active infection at this time Chronic conditions: Type II DM, hypertension, hyperlipidemia, TBI Imaging: Chest CTA in the emergency room was unremarkable with EKG showing sinus rhythm at 95 bpm with right axis deviation as reviewed by me. Data Review: Laboratory evaluation was remarkable for WBC count 17.7, sodium 133, glucose 161, troponin less than 0.012. Plan: Cardiology consulted Cardiac monitoring Trend troponin Pain control with morphine Resume home medications once reconciled DVT prophylaxis: Lovenox The patient is admitted with an anticipated less than 2 midnight stay for evaluation of chest pain CODE STATUS: Full Code Discussed with: Patient Anticipated discharge place: Home Past Medical History Past Medical History: Diabetes Mellitus, Hyperlipidemia, Hypertension, Rheumatoid Arthritis (RA) Additional Past Medical History / Comment(s): brain injury, neuropathy, chronic back and shoulder pain History of Any Multi-Drug Resistant Organisms: None Reported Past Surgical History: Cholecystectomy, Hernia Repair Additional Past Surgical History / Comment(s): splenectomy, neck surg, left eye, carpal tunnel surgery. cervial and shoulder surgery Past Psychological History: Anxiety, Bipolar, Depression, Schizophrenia Smoking Status: Current every day smoker Past Alcohol Use History: Daily, Heavy Past Drug Use History: None Reported - Past Family History Mother Family Medical History: Hyperlipidemia Medications and Allergies Home Medications Medication Instructions Recorded Confirmed Type Amitriptyline HCl [Elavil] 75 mg PO HS 07/25/14 06/11/23 History Aspirin EC [Ecotrin Low Dose] 81 mg PO DAILY 07/25/14 06/11/23 History Atorvastatin [Lipitor] 10 mg PO HS 07/25/14 06/11/23 History Potassium Chloride [K-Tab ER] 10 meq PO DAILY 07/25/14 06/11/23 History Sertraline HCl [Zoloft] 100 mg PO HS 07/25/14 06/11/23 History lamoTRIgine [LaMICtal] 150 mg PO BID 07/25/14 06/11/23 History metFORMIN HCL [Glucophage] 500 mg PO BID 07/25/14 06/11/23 History Gabapentin 800 mg PO BID 03/06/17 06/11/23 History Metoprolol Tartrate [Lopressor] 25 mg PO BID 06/11/23 06/11/23 History Multivit/Iron Sulf/Folic Acid 1 tab PO DAILY 06/11/23 06/11/23 History [Multivitamin with Iron] [place]-3/Dha/Epa/Fish Oil [Fish Oil 1 cap PO DAILY 06/11/23 06/11/23 History 1,000 mg Softgel] hydroCHLOROthiazide [Hydrodiuril] 25 mg PO DAILY 06/11/23 06/11/23 History lisinopriL [Zestril] 10 mg PO HS 06/11/23 06/11/23 History oxyCODONE-APAP 5-325MG [Percocet 1 tab PO ONCE 06/11/23 06/11/23 History 5-325 mg] Allergies Allergy/AdvReac Type Severity Reaction Status Date / Time acetaminophen [From Percocet] Allergy Hallucinati Verified 10/22/23 18:46 ons codeine Allergy Hallucinati Verified 10/22/23 18:46 ons donepezil HCl [From Aricept] Allergy Hallucinati Verified 10/22/23 18:46 ons ibuprofen Allergy Anaphylaxis Verified 10/22/23 18:46 oxycodone [From Percocet] Allergy Hallucinati Verified 10/22/23 18:46 ons Penicillins Allergy Unknown Verified 10/22/23 18:46 Childhood Sulfa (Sulfonamide Allergy Unknown Verified 10/22/23 18:46 Antibiotics) Childhood Physical Exam Vitals: Vital Signs Temp Pulse Resp BP Pulse Ox 10/23/23 02:24 86 16 133/79 94 L 10/22/23 23:44 94 20 126/71 91 L 10/22/23 18:43 99.9 F H 98 18 142/66 93 L Intake and Output 10/22/23 10/22/23 10/23/23 14:59 22:59 06:59 Other: Weight 88.451 kg Results CBC & Chem 7: 10/22/23 19:00 10/22/23 19:00 Labs: Abnormal Lab Results - Last 24 Hours (Table) 10/22/23 10/22/23 Range/Units 19:00 19:00 WBC 17.7 H (3.8-10.6) k/uL Neutrophils # 13.5 H (1.3-7.7) k/uL Sodium 133 L (137-145) mmol/L Glucose 161 H (74-99) mg/dL Alkaline Phosphatase 131 H (38-126) U/L
[2023-10-23] MEDS: HYDROmorphone 1 MG/ML 1 ML SYRINGE IVP PRN (04:47)
[2023-10-23] MEDS: ATORVASTATIN 80 MG TAB PO STA (04:49)
[2023-10-23] MEDS ORDERED: MORPHINE SULFATE 4 MG/ML SYRINGE IVP PRN (06:59)
[2023-10-23] MEDS: ACETAMINOPHEN IV (For NPO) 1,000 MG in EMPTY BAG 1 BAG IVPB STA (11:26)
[2023-10-23] MEDS: ENOXAPARIN 40 MG/0.4 ML SYRINGE SQ SCH (11:27)
[2023-10-23] MEDS: NICOTINE 21MG/24HR PATCH TRANSDERM SCH (12:45)
[2023-10-23] MEDS: HYDROcodone/APAP 7.5-325MG 1 EACH TAB PO PRN (13:28)
[2023-10-23] MEDS ORDERED: DEXTROSE 50% SYRINGE 50 ML IVP PRN ×2 (13:44)
--- NOTE | 2023-10-23 13:47 | P.PN ---
Progress Note - Text Progress Note Date: 10/23/23 (delayed charting seen at 0830) Hospitalist Interval Note Patient seen and examined at bedside. Significant other present. He is complaining of diffuse pain everywhere. Apparently he recently had adverse reactions to Percocet and morphine when hospitalized for his neck surgery. He currently endorses continued chest pain and shortness of breath. We did loren discussion that he has a lot of risk factors including hypertension, dyslipidemia, and diabetes mellitus type 2 which would make him at increased risk for coronary artery disease. However he likely could have a worsening of his pain due to being more up and active after his surgery yesterday as well as changing of his Stephen from 7.5 to 5 mg. Patient and significant other are in agreement. Vital signs reviewed General: Non toxic, no distress, appears at stated age Derm: Warm, dry, hard cervical collar in place Cardiovascular: S1S2 reg, no murmur, positive posterior tibial pulse bilateral, Lungs: CTA bilateral, no rhonchi, no rales, no accessory muscle use Neuro: CN II-XI grossly intact, no focal neuro deficits Psych: Alert, oriented, appropriate affect Assessment/Plan: Chest pain -Possibly ACS versus musculoskeletal pain -Await cardiology consultation -Increase Stephen back to home dose of 7.5/325, resume Neurontin -Aspirin 81 mg daily, Lipitor 80 mg daily, metoprolol 25 mg twice daily Febrile x 1 with leukocytosis meeting SIRS criteria -Likely secondary to pain and acute reaction. However will need to monitor closely given that the patient had surgery recently. -Repeat CBC in a.m. Diabetes mellitus type II -Hold metformin -Start sliding scale insulin This is an update note for patient , for full note on 10/23/2023 see H&P. There is no charge associated with this note.
[2023-10-23] MEDS: GABAPENTIN 400 MG CAP PO SCH (15:46)
[2023-10-23] MEDS: methocarbamoL 500 MG TAB PO SCH (15:46)
[2023-10-23 17:40] LABS: Glucose,Whole Blood 177 mg/dL (70-110)
[2023-10-23] MEDS: INSULIN ASPART (NovoLOG) 100 UNIT/ML VIAL SQ SCH (17:47)
[2023-10-23] MEDS ORDERED: HEPARIN SODIUM 1,000 UN/ML (10ML VL) IV PRN (20:06)
[2023-10-23] MEDS ORDERED: HEPARIN SOD,PORK IN 0.45% NACL 25,000 UNIT in 0.45% NACL 1 250ML.BAG IV SCH (20:15)
[2023-10-23] MEDS: lamoTRIgine 100 MG TAB PO SCH (22:34)
[2023-10-23] MEDS: ATORVASTATIN 80 MG TAB PO SCH (22:34)
[2023-10-23] MEDS: AMITRIPTYLINE HCL 25 MG TAB PO SCH (22:34)
[2023-10-23] MEDS: METOPROLOL TARTRATE 25 MG TAB PO SCH (22:35)
[2023-10-23] MEDS: SERTRALINE 100 MG TAB PO SCH (22:35)
[2023-10-23] MEDS: lisinopriL 10 MG TAB PO SCH (22:35)
[2023-10-23 22:39] LABS: Glucose,Whole Blood 117 mg/dL (70-110)
[2023-10-23] MEDS: HEPARIN SODIUM 1,000 UN/ML (10ML VL) IV ONE (23:50)
[2023-10-24 06:26] LABS: Glucose,Whole Blood 127 mg/dL (70-110)
[2023-10-24] MEDS: IPRATROPIUM 0.5 MG/2.5 ML NEBU INHALATION SCH (08:38)
[2023-10-24] MEDS: SYMBICORT 80-4.5 MCG INHALER INHALATION SCH (08:38)
[2023-10-24] MEDS: hydroCHLOROthiazide 25 MG TAB PO SCH (08:42)
[2023-10-24 08:46] LABS: HGB 13.3 g/dL (13.0-17.0); MCH 31.9 pg (27.0-32.0); MCHC 33.3 g/dL (32.0-37.0); MCV 95.9 FL (80.0-97.0); NRBC Per 100 WBC 0 X 10*3/uL (0.00-0.01); Platelet Count 423 X 10*3/uL (140-440); RBC 4.17 X 10*6/uL (4.40-5.60); RDW 13.8 % (11.5-14.5); WBC 18.18 X 10*3/uL (4.50-10.00)
[2023-10-24 09:02] LABS: ALT 28 U/L (10-49); AST 22 U/L (14-35); Albumin 3.9 g/dL (3.8-4.9); Albumin/Globulin Ratio 1.34 Ratio (1.60-3.17); Alkaline Phosphatase 147 U/L (41-126); BUN/Creat Ratio 18.83 Ratio (12.00-20.00); Blood Urea Nitrogen 11.3 mg/dL (9.0-27.0); Calcium 9.9 mg/dL (8.7-10.3); Carbon Dioxide 26.4 mmol/L (21.6-31.8); Chloride 94 mmol/L (96-109); Globulin 2.9 g/dL (1.6-3.3); Glucose 121 mg/dL (70-110); Potassium 4.7 mmol/L (3.5-5.5); Sodium 133 mmol/L (135-145); Total Bilirubin 0.5 mg/dL (0.3-1.2); Total Protein 6.8 g/dL (6.2-8.2)
[2023-10-24] MEDS: NON FORMULARY DRUG (Omega-3/Dha/Epa/Fish Oil [Fish Oil 1,000 Mg Softgel] 1 EACH Capsule) PO SCH (09:25)
[2023-10-24 11:23] LABS: Basophils # (A) 0.09 X 10*3/uL (0.00-0.10); Basophils % (A) 0.5 %; Eosinophils # (A) 0.25 X 10*3/uL (0.04-0.35); Eosinophils % (A) 1.4 %; Lymphocytes # (A) 3.62 X 10*3/uL (0.90-5.00); Lymphocytes % (A) 19.9 %; Monocytes # (A) 1.63 X 10*3/uL (0.20-1.00); Neutrophils # (A) 12.52 X 10*3/uL (1.80-7.70); Neutrophils % (A) 68.8 %; RBC Morphology Normal (Normal)
[2023-10-24 12:00] LABS: Glucose,Whole Blood 314 mg/dL (70-110)
--- NOTE | 2023-10-24 16:37 | P.PN ---
Subjective Progress Note Date: 10/24/23 Hospital Course: 68-year-old male with history of recent neck surgery 2 weeks ago, hypertension, diabetes, dyslipidemia, COPD, depression presenting with bilateral shoulder pain, chest pressure. He claims that the majority of his chest pressure has now resolved. He is still having significant shoulder pain due to hard cervical collar in place. Cardiology was initially consulted for chest pressure however pain is more musculoskeletal in nature. Patient has had mildly elevated temperature 99.9, rest of the vital signs within normal limits. Laboratory workup showed elevated white count of 17.7, troponin negative x 3. EKG on admission showed sinus rhythm. Nonspecific ST-T wave changes. Chest CTA showed no acute findings. Concern for possible postsurgical infection of cervical spi ne. Neck CT pending. Subjective: Patient seen and and examined at bedside. No acute events overnight. Still complaining of significant bilateral shoulder pain. Pertinent positives and negatives as discussed above, a complete review of systems was performed and all other systems are negative. Vitals Signs Reviewed. General: Nontoxic, no distress, appears at stated age Derm: Warm, dry, anterior neck incision clean, dry, intact Head: Atraumatic, normocephalic, symmetric, cervical collar in place Eyes: EOMI, no lid lag, anicteric sclera Mouth: No lip lesion, mucus membranes moist Cardiovascular: S1S2 reg, no murmur Lungs: CTA bilateral, no rhonchi, no rales, no accessory muscle use Abdominal: Soft, nontender to palpation, no guarding, no appreciable organomegaly Ext: No gross muscle atrophy, no edema, no contractures Neuro: CN II-XI grossly intact, no focal neuro deficits Psych: Alert, oriented, appropriate affect Data Reviewed Today: Pertinent Labs: Troponin negative x 3, WBC 18.18, creatinine 0.6, A1c 6.4, blood sugars range between 1 21-1 27 Imaging: CT neck with contrast pending Assessment and Plan: Active: Chest pain, suspected musculoskeletal in nature, ACS ruled out Recent cervical spine surgery with increased pain Leukocytosis -Cardiology consult discontinued, ACS has been ruled out, story not consistent with cardiac problems -Telemetry has been discontinued as well -Concern for possible infectious process involving recent cervical spine surgery -CT neck with contrast pending -ESR and CRP ordered -Repeat CBC tomorrow -Pain control with gabapentin 1200 3 times daily, [place] 7.5 every 6 hours as needed, monitor for sedation, Robaxin 500 every 8 hours Type 2 diabetes -Sliding scale insulin, monitor for sedation Chronic: Hypertension Dyslipidemia History of TBI Depression/anxiety DVT ppx: Lovenox Code status: Full code Anticipated discharge place: Pending clinical course Anticipated discharge time: Pending clinical course Objective - Vital Signs Vital signs: Vital Signs Temp 97.5 F L 10/24/23 07:00 Pulse 69 10/24/23 07:00 Resp 14 10/24/23 07:00 BP 136/64 10/24/23 07:00 Pulse Ox 93 L 10/24/23 08:40 FiO2 21 10/24/23 08:40 Intake & Output 10/23/23 10/24/23 10/24/23 18:59 06:59 18:59 Weight 88.451 kg Other: Voiding Method Urinal Urinal Toilet Urinal # Voids 2 2 # Bowel Movements 0 - Labs CBC & Chem 7: 10/24/23 04:02 10/24/23 04:02 Labs: Abnormal Lab Results - Last 24 Hours (Table) 10/23/23 10/23/23 10/24/23 Range/Units 17:38 22:36 04:02 WBC (4.50-10.00) X 10*3/uL RBC (4.40-5.60) X 10*6/uL Immature Gran # (0.00-0.04) X 10*3/uL Neutrophils # (1.80-7.70) X 10*3/uL Monocytes # (0.20-1.00) X 10*3/uL Sodium (135-145) mmol/L Chloride (96-109) mmol/L Anion Gap (4.00-12.00) mmol/L Glucose (70-110) mg/dL POC Glucose (mg/dL) 177 H 117 H (70-110) mg/dL Hemoglobin A1c 6.4 H (<=6.0) % Alkaline Phosphatase (41-126) U/L Albumin/Globulin Ratio (1.60-3.17) Ratio 10/24/23 10/24/23 10/24/23 Range/Units 04:02 04:02 06:24 WBC 18.18 H (4.50-10.00) X 10*3/uL RBC 4.17 L (4.40-5.60) X 10*6/uL Immature Gran # 0.07 H (0.00-0.04) X 10*3/uL Neutrophils # 12.52 H (1.80-7.70) X 10*3/uL Monocytes # 1.63 H (0.20-1.00) X 10*3/uL Sodium 133 L (135-145) mmol/L Chloride 94 L (96-109) mmol/L Anion Gap 12.60 H (4.00-12.00) mmol/L Glucose 121 H (70-110) mg/dL POC Glucose (mg/dL) 127 H (70-110) mg/dL Hemoglobin A1c (<=6.0) % Alkaline Phosphatase 147 H (41-126) U/L Albumin/Globulin Ratio 1.34 L (1.60-3.17) Ratio 10/24/23 Range/Units 11:58 WBC (4.50-10.00) X 10*3/uL RBC (4.40-5.60) X 10*6/uL Immature Gran # (0.00-0.04) X 10*3/uL Neutrophils # (1.80-7.70) X 10*3/uL Monocytes # (0.20-1.00) X 10*3/uL Sodium (135-145) mmol/L Chloride (96-109) mmol/L Anion Gap (4.00-12.00) mmol/L Glucose (70-110) mg/dL POC Glucose (mg/dL) 314 H (70-110) mg/dL Hemoglobin A1c (<=6.0) % Alkaline Phosphatase (41-126) U/L Albumin/Globulin Ratio (1.60-3.17) Ratio
[2023-10-24 17:06] LABS: Glucose,Whole Blood 96 mg/dL (70-110)
[2023-10-24] MEDS: HYDROcodone/APAP 5-325MG 1 EACH TAB PO STA (18:37)
[2023-10-24] MEDS: MORPHINE SULFATE 2 MG/ML SYRINGE IVP STA (20:02)
[2023-10-24 20:34] LABS: Glucose,Whole Blood 149 mg/dL (70-110)
[2023-10-25] MEDS: HYDROcodone/APAP 10-325MG 1 EACH TAB PO PRN (05:05)
[2023-10-25 06:03] LABS: Glucose,Whole Blood 138 mg/dL (70-110)
[2023-10-25] MEDS ORDERED: VANCOMYCIN IV PER PHARMACY 1 EACH MISC MISCELLANE PRN (08:24)
--- NOTE | 2023-10-25 08:38 | CT ---
EXAMINATION TYPE: CT neck chest w con CT DLP: 737 mGycm, Automated exposure control for dose reduction was used. DATE OF EXAM: 10/25/2023 8:33 AM COMPARISON: 10/22/2023 7323. CLINICAL INDICATION:Male, 68 years old with history of recent surgery, increased pain;, neck and shou lder pain TECHNIQUE: Standard enhanced CT of the neck and chest. Axial sections with coronal and sagittal refo rmats were obtained. Contrast used:100 mL of Isovue 300 with IV Contrast, (none if empty) Oral contrast used: (none if empty) FINDINGS: Brain: Visualized portions are grossly unremarkable. Orbits: Unremarkable Sinuses: Grossly unremarkable. Spaces of the neck: There is a prevertebral space and plaque fluid collection with multiple foci of g as and some peripheral enhancement measuring at least 3.8 x 1.9 x 6.2 cm extending from the superior endplate of C4 to the proximal C6/C7 Musculoskeletal: Fixation hardware of the anterior cervical spine hardware is intact and in appropria te position. Prior removal of hardware with abandoned fragment/screw tip in C4. Hardware remains in a ppropriate position at C5-C7. Lymph nodes: Multiple nonenlarged lymph nodes are seen along both anterior chains of the neck. Vascular structures: Visualized major arteries are patent without evidence of aneurysm. Atherosclerot ic consultations at the bilateral carotid bifurcations with at least 25% stenosis on the right and no significant stenosis on the left. Thoracic Inlet/airway: Airway is patent. The lung apices are clear. Soft tissues/Thyroid: Thyroid and remainder of the soft tissues are unremarkable. Other: none. LUNGS/ PLEURA: Mild paracentral edema changes. No evidence of focal consolidation, pneumothorax or pl eural effusion. AIRWAY: Patent and unremarkable. HEART: Size within normal limits. MEDIASTINUM: No gross evidence of adenopathy. VASCULATURE: No aortic aneurysm. MUSCULOSKELETAL: No acute osseous abnormalities SOFT TISSUES/LYMPH NODES: Unremarkable. LOWER NECK: No significant findings. UPPER ABDOMEN: Is suspected gastric diverticulum near the left adrenal gland. IMPRESSION 1. Prevertebral space fluid collection with gas concerning for abscess formatio given 2 weeks since surgery. 2. Abandoned screw tip in the C4 vertebral body. 3. Postsurgical hardware in appropriate position at C5-C7. Findings communicated to : Gavin Phillips on 10/25/2023 8:[address] Meir Minor.
[2023-10-25] MEDS: VANCOMYCIN 1,750 MG in SODIUM CHLORIDE 0.9% 500 ML 500 ML IVPB ONE (09:52)
[2023-10-25 10:21] LABS: Basophils # (A) 0.08 X 10*3/uL (0.00-0.10); Basophils % (A) 0.5 %; Eosinophils # (A) 0.21 X 10*3/uL (0.04-0.35); Eosinophils % (A) 1.2 %; HCT 39.3 % (39.6-50.0); HGB 13.4 g/dL (13.0-17.0); Lymphocytes # (A) 3.11 X 10*3/uL (0.90-5.00); Lymphocytes % (A) 17.8 %; MCH 32.4 pg (27.0-32.0); MCHC 34.1 g/dL (32.0-37.0); MCV 94.9 FL (80.0-97.0); Mean Platelet Volume 10.1 FL (9.5-12.2); Monocytes % (A) 8.6 %; NRBC Per 100 WBC 0 X 10*3/uL (0.00-0.01); Neutrophils # (A) 12.49 X 10*3/uL (1.80-7.70); Neutrophils % (A) 71.6 %; Platelet Count 457 X 10*3/uL (140-440); RBC 4.14 X 10*6/uL (4.40-5.60); RDW 13.3 % (11.5-14.5); WBC 17.45 X 10*3/uL (4.50-10.00)
[2023-10-25] MEDS: MORPHINE SULFATE 4 MG/ML SYRINGE IVP PRN (10:22)
[2023-10-25 10:33] LABS: Blood Urea Nitrogen 11.1 mg/dL (9.0-27.0); Calcium 9.7 mg/dL (8.7-10.3); Carbon Dioxide 24.2 mmol/L (21.6-31.8); Chloride 98 mmol/L (96-109); Glucose 124 mg/dL (70-110); Potassium 4.4 mmol/L (3.5-5.5); Sodium 137 mmol/L (135-145)
[2023-10-25 12:16] LABS: Glucose,Whole Blood 196 mg/dL (70-110)
[2023-10-25] MEDS: CEFEPIME 2 GM in SODIUM CHLORIDE 0.9% 100 ML IVPB SCH (12:16)
[2023-10-25] MEDS: metroNIDAZOLE-NS PMX 500 MG in SALINE 1 100ML.BAG IVPB SCH (12:16)
--- NOTE | 2023-10-25 14:37 | P.PN ---
Subjective Progress Note Date: 10/25/23 Hospital Course: 68-year-old male with history of recent neck surgery 2 weeks ago, hypertension, diabetes, dyslipidemia, COPD, depression presenting with bilateral shoulder pain, chest pressure. He claims that the majority of his chest pressure has now resolved. He is still having significant shoulder pain due to hard cervical collar in place. Cardiology was initially consulted for chest pressure however pain is more musculoskeletal in nature. Patient has had mildly elevated temperature 99.9, rest of the vital signs within normal limits. Laboratory workup showed elevated white count of 17.7, troponin negative x 3. EKG on admission showed sinus rhythm. Nonspecific ST-T wave changes. Chest CTA showed no acute findings. Concern for possible postsurgical infection of cervical spi ne. Neck CT showed prevertebral space fluid collection with gas concerning for abscess formation, abandoned screw tip in the C4 vertebral body, poor surgical hardware in appropriate position at C5-C7. Pending transfer to [facility]. Patient accepted by Dr. Guajardo. Subjective: Patient seen and and examined at bedside. No acute events overnight. Still complaining of significant bilateral shoulder pain. Pertinent positives and negatives as discussed above, a complete review of systems was performed and all other systems are negative. Vitals Signs Reviewed. General: Nontoxic, no distress, appears at stated age Derm: Warm, dry, anterior neck incision clean, dry, intact Head: Atraumatic, normocephalic, symmetric, cervical collar in place Eyes: EOMI, no lid lag, anicteric sclera Mouth: No lip lesion, mucus membranes moist Cardiovascular: S1S2 reg, no murmur Lungs: CTA bilateral, no rhonchi, no rales, no accessory muscle use Abdominal: Soft, nontender to palpation, no guarding, no appreciable organomegaly Ext: No gross muscle atrophy, no edema, no contractures Neuro: CN II-XI grossly intact, no focal neuro deficits Psych: Alert, oriented, appropriate affect Data Reviewed Today: Pertinent Labs: Troponin negative x 3, WBC 18.18, creatinine 0.6, A1c 6.4, blood sugars range between 1 21-1 27 Imaging: CT neck with contrast pending Assessment and Plan: Active: Prevertebral abscess Recent cervical spine surgery with increased pain Leukocytosis -Discussed imaging findings with radiology -Started on cefepime 2 g IV every 8 hours, Flagyl 500 mg IV every 8 hours, vancomycin IV, monitor renal function -Also started on morphine 4 mg IV every 4 hours as needed, monitor for sedation -Pain control with gabapentin 1200 3 times daily, [place] 7.5 every 6 hours as needed, monitor for sedation, Robaxin 500 every 8 hours -Pending transfer to [facility] Type 2 diabetes -Sliding scale insulin, monitor for hypoglycemia Chronic: Hypertension Dyslipidemia History of TBI Depression/anxiety DVT ppx: heparin sq Code status: Full code Anticipated discharge place: Pending clinical course Anticipated discharge time: Pending clinical course Objective - Vital Signs Vital signs: Vital Signs Temp 98.3 F 10/25/23 14:30 Pulse 79 10/25/23 14:30 Resp 16 10/25/23 14:30 BP 107/58 10/25/23 14:30 Pulse Ox 93 L 10/25/23 14:30 FiO2 21 10/24/23 08:40 Intake & Output 10/24/23 10/25/23 10/25/23 18:59 06:59 18:59 Intake Total 818 Output Total 300 Balance -300 818 Intake: Intake, IV Titration 700 Amount Cefepime 2 gm In Sodium 100 Chloride 0.9% 100 ml @ 25 mls/hr IVPB Q8HR [facility] Rx# :[id number] Vancomycin 1,750 mg In 500 Sodium Chloride 0.9% 500 ml 500 ml @ 167 mls/hr IVPB ONCE ONE Rx#: [id number] metroNIDAZOLE-NS PMX 500 100 mg In Saline 1 100ml.bag @ 100 mls/hr IVPB Q8H [facility] Rx#:[id number] Oral 118 Output: Urine 300 Other: Voiding Method Toilet Toilet Urinal Urinal # Voids 2 1 # Bowel Movements 0 - Labs CBC & Chem 7: 10/25/23 07:18 10/25/23 07:18 Labs: Abnormal Lab Results - Last 24 Hours (Table) 10/24/23 10/24/23 10/24/23 Range/Units 17:22 17:22 20:33 WBC (4.50-10.00) X 10*3/uL RBC (4.40-5.60) X 10*6/uL Hct (39.6-50.0) % MCH (27.0-32.0) pg Plt Count (140-440) X 10*3/uL Immature Gran # (0.00-0.04) X 10*3/uL Neutrophils # (1.80-7.70) X 10*3/uL Monocytes # (0.20-1.00) X 10*3/uL ESR 86 H (0-20) mm/Hr Anion Gap (4.00-12.00) mmol/L Glucose (70-110) mg/dL POC Glucose (mg/dL) 149 H (70-110) mg/dL C-Reactive Protein 16.3 H (<1.0) mg/dL 10/25/23 10/25/23 10/25/23 Range/Units 06:01 07:18 07:18 WBC 17.45 H (4.50-10.00) X 10*3/uL RBC 4.14 L (4.40-5.60) X 10*6/uL Hct 39.3 L (39.6-50.0) % MCH 32.4 H (27.0-32.0) pg Plt Count 457 H (140-440) X 10*3/uL Immature Gran # 0.06 H (0.00-0.04) X 10*3/uL Neutrophils # 12.49 H (1.80-7.70) X 10*3/uL Monocytes # 1.50 H (0.20-1.00) X 10*3/uL ESR (0-20) mm/Hr Anion Gap 14.80 H (4.00-12.00) mmol/L Glucose 124 H (70-110) mg/dL POC Glucose (mg/dL) 138 H (70-110) mg/dL C-Reactive Protein (<1.0) mg/dL 10/25/23 Range/Units 12:14 WBC (4.50-10.00) X 10*3/uL RBC (4.40-5.60) X 10*6/uL Hct (39.6-50.0) % MCH (27.0-32.0) pg Plt Count (140-440) X 10*3/uL Immature Gran # (0.00-0.04) X 10*3/uL Neutrophils # (1.80-7.70) X 10*3/uL Monocytes # (0.20-1.00) X 10*3/uL ESR (0-20) mm/Hr Anion Gap (4.00-12.00) mmol/L Glucose (70-110) mg/dL POC Glucose (mg/dL) 196 H (70-110) mg/dL C-Reactive Protein (<1.0) mg/dL
--- NOTE | 2023-10-25 15:05 | P.PN ---
Subjective Progress Note Date: 10/25/23 Hospital Course: 87-year-old male with history of atrial fibrillation, coronary artery disease, diabetes, hypertension, dyslipidemia, prior TIA, and multiple other comorbid conditions who presented to the ER with complaints of pain in the left side of his chest which radiated into his shoulders. In the ER he underwent extensive evaluation. Initial troponin was 0.023 and BNP was 2330. His CBC, CMP, and coags were within normal. EKG showed no signs of acute ischemia but prior known right bundle branch block. Chest x-ray showed no acute process. Patient was given a dose of aspirin and morphine as well as having Nitropaste placed. Arrangements are made for observation. Seen by cardiology, recommended outpatient stress testing. Already scheduled. He has a history of bad lumbar spine degenerative disc disease. He has had multiple surgeries as one of them became infected with staph. His most recent surgeon was out of [facility]. He also follows with Dr. Bush for chronic pain and has a implanted pain pump which was last filled [address] head did not show any acute process. MRI lumbar spine shows findings consistent with L1-L2 severe spinal canal stenosis secondary to degeneration of the disc base, severe bilateral neuroforaminal stenosis, surgical bed seroma. Subjective: Patient seen and examined at bedside. No acute events overnight. Still having low back pain radiating to his right leg.. No CP. Pertinent positives and negatives as discussed above, a complete review of systems was performed and all other systems are negative. Vitals Signs Reviewed. General: Nontoxic, no distress, appears at stated age Derm: Warm, dry Head: Atraumatic, normocephalic, symmetric Eyes: EOMI, no lid lag, anicteric sclera Mouth: No lip lesion, mucus membranes moist Cardiovascular: S1S2 reg, no murmur Lungs: CTA bilateral, no rhonchi, no rales, no accessory muscle use Abdominal: Soft, nontender to palpation, no guarding, no appreciable organomegaly Ext: No gross muscle atrophy, no edema, no contractures Neuro: CN II-XI grossly intact, no focal neuro deficits Psych: Alert, oriented, appropriate affect Data Reviewed Today: Pertinent Labs: Hemoglobin 10.5, creatinine 1.3, glucose range between 1 20-1 94 Imaging: MRI lumbar spine shows findings consistent with L1-L2 severe spinal canal stenosis secondary to degeneration of the disc base, severe bilateral neuroforaminal stenosis, surgical bed seroma. Assessment and Plan: L1-L2 severe spinal stenosis Severe bilateral neural foraminal stenosis Surgical bed seroma Right lower extremity weakness and pain Possible hx of fall 3 weeks ago Known severe lumbar disc disease with hx of multiple surgeries for stap infection Has pain pump in place, last filled 3 weeks ago follows isidro Veras -Orthopedic surgery note reviewed, tentatively plan for surgery on Tuesday -Morphine 4 mg IV push every 4 hours as needed for pain, [place] 5/325 as needed for pain -Continue increase Neurontin to 450 3 times daily -PT/OT evaluation -Hold Eliquis tomorrow Chest pain, ACS ruled out Coronary artery disease status post stenting x 2 Discovered paroxysmal atrial fibrillation, currently in sinus rhythm Hypertension Dyslipidemia -Cardiology note reviewed, patient to get outpatient stress testing, signed off -Continue telemetry monitoring -Aspirin 81 mg daily, Lipitor 80 mg daily, metoprolol 25 mg daily -Echocardiogram was recently completed on 09/30/2023 which demonstrated ejection fraction 45 to 50%. DM 2 - Hold pioglitazone and glipizide -Sliding scale insulin, monitor for hypoglycemia Right hip stage II pressure ulcer -Appears healing -Honey -Cover with foam dressing Chronic: Coronary artery disease GERD Chronic kidney disease DVT ppx: Subcu heparin Code status: Full code Anticipated discharge place: pending clinical course Anticipated discharge time: pending clinical course Objective - Vital Signs Vital signs: Vital Signs Temp 98.3 F 10/25/23 14:30 Pulse 79 10/25/23 14:30 Resp 16 10/25/23 14:30 BP 107/58 10/25/23 14:30 Pulse Ox 93 L 10/25/23 14:30 FiO2 21 10/24/23 08:40 Intake & Output 10/24/23 10/25/23 10/25/23 18:59 06:59 18:59 Intake Total 818 Output Total 300 Balance -300 818 Intake: Intake, IV Titration 700 Amount Cefepime 2 gm In Sodium 100 Chloride 0.9% 100 ml @ 25 mls/hr IVPB Q8HR [facility] Rx# :[id number] Vancomycin 1,750 mg In 500 Sodium Chloride 0.9% 500 ml 500 ml @ 167 mls/hr IVPB ONCE ONE Rx#: [id number] metroNIDAZOLE-NS PMX 500 100 mg In Saline 1 100ml.bag @ 100 mls/hr IVPB Q8H [facility] Rx#:[id number] Oral 118 Output: Urine 300 Other: Voiding Method Toilet Toilet Urinal Urinal # Voids 2 1 # Bowel Movements 0 - Labs CBC & Chem 7: 10/25/23 07:18 10/25/23 07:18 Labs: Abnormal Lab Results - Last 24 Hours (Table) 10/24/23 10/24/23 10/24/23 Range/Units 17:22 17:22 20:33 WBC (4.50-10.00) X 10*3/uL RBC (4.40-5.60) X 10*6/uL Hct (39.6-50.0) % MCH (27.0-32.0) pg Plt Count (140-440) X 10*3/uL Immature Gran # (0.00-0.04) X 10*3/uL Neutrophils # (1.80-7.70) X 10*3/uL Monocytes # (0.20-1.00) X 10*3/uL ESR 86 H (0-20) mm/Hr Anion Gap (4.00-12.00) mmol/L Glucose (70-110) mg/dL POC Glucose (mg/dL) 149 H (70-110) mg/dL C-Reactive Protein 16.3 H (<1.0) mg/dL 10/25/23 10/25/23 10/25/23 Range/Units 06:01 07:18 07:18 WBC 17.45 H (4.50-10.00) X 10*3/uL RBC 4.14 L (4.40-5.60) X 10*6/uL Hct 39.3 L (39.6-50.0) % MCH 32.4 H (27.0-32.0) pg Plt Count 457 H (140-440) X 10*3/uL Immature Gran # 0.06 H (0.00-0.04) X 10*3/uL Neutrophils # 12.49 H (1.80-7.70) X 10*3/uL Monocytes # 1.50 H (0.20-1.00) X 10*3/uL ESR (0-20) mm/Hr Anion Gap 14.80 H (4.00-12.00) mmol/L Glucose 124 H (70-110) mg/dL POC Glucose (mg/dL) 138 H (70-110) mg/dL C-Reactive Protein (<1.0) mg/dL 10/25/23 Range/Units 12:14 WBC (4.50-10.00) X 10*3/uL RBC (4.40-5.60) X 10*6/uL Hct (39.6-50.0) % MCH (27.0-32.0) pg Plt Count (140-440) X 10*3/uL Immature Gran # (0.00-0.04) X 10*3/uL Neutrophils # (1.80-7.70) X 10*3/uL Monocytes # (0.20-1.00) X 10*3/uL ESR (0-20) mm/Hr Anion Gap (4.00-12.00) mmol/L Glucose (70-110) mg/dL POC Glucose (mg/dL) 196 H (70-110) mg/dL C-Reactive Protein (<1.0) mg/dL
[2023-10-25] MEDS: HEPARIN SODIUM,PORCINE 5,000 UNIT/ML 1 ML VIAL SQ SCH (15:40)
[2023-10-25 17:19] LABS: Glucose,Whole Blood 131 mg/dL (70-110)
--- NOTE | 2023-10-25 17:19 | P.DS ---
Providers Date of admission: 10/23/23 03:44 Expected date of discharge: 10/25/23 Attending physician: Luis Quevedo MD [facility] Course: Discharge Diagnosis: Prevertebral abscess Recent cervical spine surgery with increased pain Leukocytosis Type 2 diabetes Hypertension Dyslipidemia History of TBI Depression/anxiety Hospital Course: 68-year-old male with history of recent neck surgery 2 weeks ago, hypertension, diabetes, dyslipidemia, COPD, depression presenting with bilateral shoulder pain, chest pressure. He claims that the majority of his chest pressure has now resolved. He is still having significant shoulder pain due to hard cervical collar in place. Cardiology was initially consulted for chest pressure however pain is more musculoskeletal in nature. Patient has had mildly elevated temperature 99.9, rest of the vital signs within normal limits. Laboratory workup showed elevated white count of 17.7, troponin negative x 3. EKG on admission showed sinus rhythm. Nonspecific ST-T wave changes. Chest CTA showed no acute findings. Concern for possible postsurgical infection of cervical spine. Neck CT showed prevertebral space fluid collection with gas concerning f or abscess formation, abandoned screw tip in the C4 vertebral body, poor surgical hardware in appropriate position at C5-C7. Pending transfer to [facility]. Patient accepted by Dr. Guajardo. Patient seen and examined at bedside. Vital signs reviewed and stable. General: Nontoxic, no distress, appears at stated age Derm: Warm, dry, anterior neck incision clean, dry, intact Head: Atraumatic, normocephalic, symmetric, cervical collar in place Eyes: EOMI, no lid lag, anicteric sclera Mouth: No lip lesion, mucus membranes moist Cardiovascular: S1S2 reg, no murmur Lungs: CTA bilateral, no rhonchi, no rales, no accessory muscle use Abdominal: Soft, nontender to palpation, no guarding, no appreciable organomegaly Ext: No gross muscle atrophy, no edema, no contractures Neuro: CN II-XI grossly intact, no focal neuro deficits Psych: Alert, oriented, appropriate affect Patient pending transfer. Plan - Discharge Summary Discharge Rx Participant: No New Discharge Prescriptions: No Action metFORMIN HCL [Glucophage] 500 mg PO BID Aspirin EC [Ecotrin Low Dose] 81 mg PO DAILY Atorvastatin [Lipitor] 10 mg PO HS Sertraline HCl [Zoloft] 100 mg PO HS Potassium Chloride [K-Tab ER] 10 meq PO SUMOWEFR Amitriptyline HCl [Elavil] 75 mg PO HS lamoTRIgine [LaMICtal] 150 mg PO BID [place]-3/Dha/Epa/Fish Oil [Fish Oil 1,000 mg Softgel] 1 cap PO DAILY lisinopriL [Zestril] 10 mg PO HS hydroCHLOROthiazide [Hydrodiuril] 25 mg PO DAILY methocarbamoL [Robaxin] 500 mg PO Q8H HYDROcodone/APAP 7.5-325MG [[place] 7.5-325] 1 tab PO BID Gabapentin 1,200 mg PO TID Nicotine 21Mg/24Hr Patch [Habitrol] 1 patch TRANSDERM DAILY Cholecalciferol (Vitamin D3) [Vitamin D3 (50 Mcg = 2000 Iu)] 50 mcg PO DAILY Metoprolol Tartrate [Lopressor] 25 mg PO BID Fluticasone/Umeclidin/Vilanter [Trelegy Ellipta 200-62.5-25] 1 puff INHALATION RT-DAILY Discharge Medication List Amitriptyline HCl [Elavil] 75 mg PO HS 07/25/14 [History] Aspirin EC [Ecotrin Low Dose] 81 mg PO DAILY 07/25/14 [History] Atorvastatin [Lipitor] 10 mg PO HS 07/25/14 [History] Potassium Chloride [K-Tab ER] 10 meq PO SUMOWEFR 07/25/14 [History] Sertraline HCl [Zoloft] 100 mg PO HS 07/25/14 [History] lamoTRIgine [LaMICtal] 150 mg PO BID 07/25/14 [History] metFORMIN HCL [Glucophage] 500 mg PO BID 07/25/14 [History] Metoprolol Tartrate [Lopressor] 25 mg PO BID 06/11/23 [History] [place]-3/Dha/Epa/Fish Oil [Fish Oil 1,000 mg Softgel] 1 cap PO DAILY 06/11/23 [History] hydroCHLOROthiazide [Hydrodiuril] 25 mg PO DAILY 06/11/23 [History] lisinopriL [Zestril] 10 mg PO HS 06/11/23 [History] Cholecalciferol (Vitamin D3) [Vitamin D3 (50 Mcg = 2000 Iu)] 50 mcg PO DAILY 10/23/23 [History] Fluticasone/Umeclidin/Vilanter [Trelegy Ellipta 200-62.5-25] 1 puff INHALATION RT-DAILY 10/23/23 [History] Gabapentin 1,200 mg PO TID 10/23/23 [History] HYDROcodone/APAP 7.5-325MG [[place] 7.5-325] 1 tab PO BID 10/23/23 [History] Nicotine 21Mg/24Hr Patch [Habitrol] 1 patch TRANSDERM DAILY 10/23/23 [History] methocarbamoL [Robaxin] 500 mg PO Q8H 10/23/23 [History] Follow up Appointment(s)/Referral(s): Eva Rodríguez, PAC [REFERRING] - 1-2 days
[2023-10-25] MEDS: VANCOMYCIN 1,500 MG in SODIUM CHLORIDE 0.9% 500 ML 500 ML IVPB SCH (17:50)
[2023-10-25 20:37] LABS: Glucose,Whole Blood 180 mg/dL (70-110)
[2023-10-26 05:30] LABS: Glucose,Whole Blood 157 mg/dL (70-110)
[2023-10-26 07:30] VITALS: BP 121/64; PULSE 71; RESP 18; TEMP 97.5
--- NOTE | 2023-10-26 12:16 | P.DS ---
Providers Date of admission: 10/23/23 03:44 Expected date of discharge: 10/26/23 Attending physician: Luis Quevedo MD [facility] Course: Discharge Diagnosis: Prevertebral abscess Recent cervical spine surgery with increased pain Leukocytosis Type 2 diabetes Hypertension Dyslipidemia History of TBI Depression/anxiety Hospital Course: 68-year-old male with history of recent neck surgery 2 weeks ago, hypertension, diabetes, dyslipidemia, COPD, depression presenting with bilateral shoulder pain, chest pressure. He claims that the majority of his chest pressure has now resolved. He is still having significant shoulder pain due to hard cervical collar in place. Cardiology was initially consulted for chest pressure however pain is more musculoskeletal in nature. Patient has had mildly elevated temperature 99.9, rest of the vital signs within normal limits. Laboratory workup showed elevated white count of 17.7, troponin negative x 3. EKG on admission showed sinus rhythm. Nonspecific ST-T wave changes. Chest CTA showed no acute findings. Concern for possible postsurgical infection of cervical spine. Neck CT showed prevertebral space fluid collection with gas concerning f or abscess formation, abandoned screw tip in the C4 vertebral body, poor surgical hardware in appropriate position at C5-C7. Patient being transferred to [facility]. Patient accepted by Dr. Guajardo. Patient seen and examined at bedside. Vital signs reviewed and stable. General: Nontoxic, no distress, appears at stated age Derm: Warm, dry, anterior neck incision clean, dry, intact Head: Atraumatic, normocephalic, symmetric, cervical collar in place Eyes: EOMI, no lid lag, anicteric sclera Mouth: No lip lesion, mucus membranes moist Cardiovascular: S1S2 reg, no murmur Lungs: CTA bilateral, no rhonchi, no rales, no accessory muscle use Abdominal: Soft, nontender to palpation, no guarding, no appreciable organomegaly Ext: No gross muscle atrophy, no edema, no contractures Neuro: CN II-XI grossly intact, no focal neuro deficits Psych: Alert, oriented, appropriate affect A total of 33 minutes of time were spent preparing this complex discharge summary. Patient was discharged on 10/26/2023 at 1145. Plan - Discharge Summary Discharge Rx Participant: No New Discharge Prescriptions: No Action metFORMIN HCL [Glucophage] 500 mg PO BID Aspirin EC [Ecotrin Low Dose] 81 mg PO DAILY Atorvastatin [Lipitor] 10 mg PO HS Sertraline HCl [Zoloft] 100 mg PO HS Potassium Chloride [K-Tab ER] 10 meq PO SUMOWEFR Amitriptyline HCl [Elavil] 75 mg PO HS lamoTRIgine [LaMICtal] 150 mg PO BID [place]-3/Dha/Epa/Fish Oil [Fish Oil 1,000 mg Softgel] 1 cap PO DAILY lisinopriL [Zestril] 10 mg PO HS hydroCHLOROthiazide [Hydrodiuril] 25 mg PO DAILY methocarbamoL [Robaxin] 500 mg PO Q8H HYDROcodone/APAP 7.5-325MG [[place] 7.5-325] 1 tab PO BID Gabapentin 1,200 mg PO TID Nicotine 21Mg/24Hr Patch [Habitrol] 1 patch TRANSDERM DAILY Cholecalciferol (Vitamin D3) [Vitamin D3 (50 Mcg = 2000 Iu)] 50 mcg PO DAILY Metoprolol Tartrate [Lopressor] 25 mg PO BID Fluticasone/Umeclidin/Vilanter [Trelegy Ellipta 200-62.5-25] 1 puff INHALATION RT-DAILY Discharge Medication List Amitriptyline HCl [Elavil] 75 mg PO HS 07/25/14 [History] Aspirin EC [Ecotrin Low Dose] 81 mg PO DAILY 07/25/14 [History] Atorvastatin [Lipitor] 10 mg PO HS 07/25/14 [History] Potassium Chloride [K-Tab ER] 10 meq PO SUMOWEFR 07/25/14 [History] Sertraline HCl [Zoloft] 100 mg PO HS 07/25/14 [History] lamoTRIgine [LaMICtal] 150 mg PO BID 07/25/14 [History] metFORMIN HCL [Glucophage] 500 mg PO BID 07/25/14 [History] Metoprolol Tartrate [Lopressor] 25 mg PO BID 06/11/23 [History] [place]-3/Dha/Epa/Fish Oil [Fish Oil 1,000 mg Softgel] 1 cap PO DAILY 06/11/23 [History] hydroCHLOROthiazide [Hydrodiuril] 25 mg PO DAILY 06/11/23 [History] lisinopriL [Zestril] 10 mg PO HS 06/11/23 [History] Cholecalciferol (Vitamin D3) [Vitamin D3 (50 Mcg = 2000 Iu)] 50 mcg PO DAILY 10/23/23 [History] Fluticasone/Umeclidin/Vilanter [Trelegy Ellipta 200-62.5-25] 1 puff INHALATION RT-DAILY 10/23/23 [History] Gabapentin 1,200 mg PO TID 10/23/23 [History] HYDROcodone/APAP 7.5-325MG [[place] 7.5-325] 1 tab PO BID 10/23/23 [History] Nicotine 21Mg/24Hr Patch [Habitrol] 1 patch TRANSDERM DAILY 10/23/23 [History] methocarbamoL [Robaxin] 500 mg PO Q8H 10/23/23 [History] Follow up Appointment(s)/Referral(s): Eva Rodríguez, JAZZY [REFERRING] - 1-2 days Discharge Disposition: OTHER INSTITUTION NOT DEFINED
[2023-10-26 12:27] LABS: Glucose,Whole Blood 293 mg/dL (70-110)
[2023-10-26] MEDS ORDERED: VANCOMYCIN TROUGH DUE 1 EACH MISC MISCELLANE ONE (17:00)
== END 2023-10-26 13:33 | disposition short-term general hospital (02) | DRG 862 ==
LOC: EC 18:41 → 6NMEDSUR 10-23 03:43 → OBSVTOIN 10-23 03:44 → 6NMEDSUR 10-23 06:48
PROVIDERS: ADMIT Internal Medicine; ATTEND Internal Medicine
DX: T81.49XA Infection following a procedure, other surgical site, initial encounter (principal); G06.1 Intraspinal abscess and granuloma; Y84.8 Other medical procedures as the cause of abnormal reaction of the patient, or of later complication, without mention of misadventure at the time of the procedure; R07.89 Other chest pain; Z88.5 Allergy status to narcotic agent; Z88.6 Allergy status to analgesic agent; M25.512 Pain in left shoulder; M25.511 Pain in right shoulder; E78.5 Hyperlipidemia, unspecified; E11.9 Type 2 diabetes mellitus without complications; F41.9 Anxiety disorder, unspecified; F17.210 Nicotine dependence, cigarettes, uncomplicated; F20.9 Schizophrenia, unspecified; I10 Essential (primary) hypertension; F31.9 Bipolar disorder, unspecified; M06.9 Rheumatoid arthritis, unspecified; G89.29 Other chronic pain; Z87.820 Personal history of traumatic brain injury; M54.9 Dorsalgia, unspecified; Z79.82 Long term (current) use of aspirin; Z79.899 Other long term (current) drug therapy; Z79.84 Long term (current) use of oral hypoglycemic drugs; Z90.81 Acquired absence of spleen; Z87.19 Personal history of other diseases of the digestive system; Z88.2 Allergy status to sulfonamides; Z88.0 Allergy status to penicillin; Z90.49 Acquired absence of other specified parts of digestive tract
CPT/HCPCS: 36415; 70491; 71260; 71275; 80048; 80053; 83036; 83690; 83735; 84484; 85025; 85610; 85652; 85730; 86140; 93005; 94760; 96365; 96375; 96376; 99285

== ENCOUNTER → 2024-01-30 | Outpatient (CLI) | payer MEDICARE, OTHER ==
--- NOTE | 2024-01-30 19:09 | XR ---
EXAMINATION TYPE: XR knee complete RT DATE OF EXAM: 01/30/2024 3:40 PM CLINICAL INDICATION: Male, 68 years old with history of [id number] RT KNEE PAIN; [facility] COMPARISON: 01/04/2023. TECHNIQUE: XR knee complete RT; examined in Frontal, lateral and oblique projections. FINDINGS: No evidence of any acute osseous pathology, soft tissue swelling, or joint effusion is no jj. Tricompartmental osteophyte formation involving the femoral condyles, tibial plateau and patella . Mild joint space narrowing. IMPRESSION: 1. No acute osseous pathology. 2. Mild tricompartmental osteoarthritic changes.
== END | disposition home or self-care (01) ==
LOC: RADXRYALE 15:20
PROVIDERS: ATTEND Physician Assistant
DX: M17.11 Unilateral primary osteoarthritis, right knee (principal)

== ENCOUNTER → 2024-03-29 | Outpatient (CLI) | payer MEDICARE, OTHER ==
[2024-03-29 19:27] LABS: Basophils # (A) 0.12 X 10*3/uL (0.00-0.10); Eosinophils % (A) 5.2 %; HCT 46.9 % (39.6-50.0); HGB 15.7 g/dL (13.0-17.0); Lymphocytes # (A) 4.98 X 10*3/uL (0.90-5.00); Lymphocytes % (A) 42.8 %; MCH 31.2 pg (27.0-32.0); MCHC 33.5 g/dL (32.0-37.0); MCV 93.1 FL (80.0-97.0); Mean Platelet Volume 10.3 FL (9.5-12.2); Monocytes # (A) 0.93 X 10*3/uL (0.20-1.00); NRBC Per 100 WBC 0 X 10*3/uL (0.00-0.01); Neutrophils # (A) 4.97 X 10*3/uL (1.80-7.70); Neutrophils % (A) 42.7 %; Platelet Count 298 X 10*3/uL (140-440); RBC 5.04 X 10*6/uL (4.40-5.60); RDW 15.1 % (11.5-14.5); WBC 11.64 X 10*3/uL (4.50-10.00)
[2024-03-29 20:56] LABS: ALT 31 U/L (10-49); AST 23 U/L (14-35); Albumin 4.3 g/dL (3.8-4.9); Albumin/Globulin Ratio 1.59 Ratio (1.60-3.17); Alkaline Phosphatase 118 U/L (41-126); BUN/Creat Ratio 19.62 Ratio (12.00-20.00); Blood Urea Nitrogen 15.7 mg/dL (9.0-27.0); Calcium 9.7 mg/dL (8.7-10.3); Carbon Dioxide 25.6 mmol/L (21.6-31.8); Chloride 98 mmol/L (96-109); Chol/HDL Ratio 3.61 Ratio; Creatine Kinase 64 U/L (35-257); Globulin 2.7 g/dL (1.6-3.3); Glucose 75 mg/dL (70-110); LDL Cholesterol,Calculated 67.9 mg/dL (0.0-131.0); Potassium 4.3 mmol/L (3.5-5.5); Prostate Specific Antigen 5.48 ng/mL (0.000-4.500); Sodium 136 mmol/L (135-145); Total Bilirubin 0.3 mg/dL (0.3-1.2)
== END | disposition home or self-care (01) ==
LOC: LABWHC1 13:58
PROVIDERS: ATTEND Family Medicine
DX: I10 Essential (primary) hypertension (principal); E78.2 Mixed hyperlipidemia; E11.42 Type 2 diabetes mellitus with diabetic polyneuropathy; Z12.5 Encounter for screening for malignant neoplasm of prostate; F33.0 Major depressive disorder, recurrent, mild; Z87.820 Personal history of traumatic brain injury
CPT/HCPCS: 36415; 80053; 80061; 82550; 84153; 85025

== ENCOUNTER → 2024-10-04 | Outpatient (CLI) | payer MEDICARE ==
--- NOTE | 2024-10-04 10:35 | CTL ---
EXAMINATION TYPE: CT Low Dose Lung DATE OF EXAM: 10/04/2024 10:15 AM COMPARISON: 10/24/2023 CLINICAL INDICATION: Male, 69 years old with history of F17.200 nicotine dependence, current smoker, 0.8 ppd x 50 years, History of tobacco use. TECHNIQUE: Low dose computed tomography scan was performed through the chest at 1 mm thick sections a nd reconstructed images in multiple planes at 1 mm and [address] DLP: 77 mGycm, CT CTDI: 2.68 mGy, Automated exposure control for dose reduction was used. CT DIAGNOSTIC QUALITY: Satisfactory FINDINGS: Prominent metal artifact related to the patient's left shoulder arthroplasty. Heart normal size without pericardial effusion. Three-vessel coronary artery calcifications are prese nt and unremarkable. Ectatic aortic root at 3.5 cm. Ectatic ascending aorta 3.7 cm. Conventional arch vessel branching eduar thom. 9 mm right tracheobronchial angle lymph node. No thoracic lymphadenopathy size criteria. Chronic streaky scarring bilaterally in the lower lungs. There is moderate diffuse bronchial wall thi ckening and mild to moderate emphysematous disease. Stable 6 mm anterior left midlung pulmonary nodule, axial images 166. 4 mm right upper lobe pulmonary nodule, axial 3 not well seen previously. 4 mm anterior left upper lobe pulmonary nodule, axial images 61 not well seen previously. 4 mm left upper lobe pulmonary nodule, axial image 96 not well seen previously. 3 mm left mid lung pulmonary nodule, axial image 110 not well seen previously. 5 mm superior segment left lower lobe pulmonary nodule, axial image 123 not well seen previously. Visualized upper abdomen shows epigastric ventral abdominal wall mesh repair, partially visualized. T here may be some fatty infiltration of the liver. Limited by normally from low-dose technique. Bones: Moderate to severe degenerative disc disease mid to lower thoracic spine. IMPRESSION: 1. LungRADS Category 3 (probably benign, 1-2% chance of malignancy); a few new 5 mm and smaller pulmo nary nodules not well seen previously. A 6 mm left mid lung pulmonary nodule remains unchanged. Recom mend 6 month follow-up low-dose CT chest to reassess. 2. COPD with moderate emphysema. Moderate diffuse bronchial wall thickening could represent a promine nt component of chronic bronchitis versus superimposed acute bronchitis. Recommend smoking cessation. 3. Chronic strandy scarring in the mid and lower lungs. 4. Three-vessel coronary artery calcifications. CT LUNG RAD AND CT CHEST RECOMMENDATION: Lung-Rad 3 Probably Benign: 6 month follow-up LDCT. S Modifier (other clinically significant findings): None [facility], , 10/04/2024 10:33 AM
== END | disposition home or self-care (01) ==
LOC: RADCTMAIN 09:35
PROVIDERS: ATTEND Family Medicine
DX: Z12.2 Encounter for screening for malignant neoplasm of respiratory organs (principal); F17.210 Nicotine dependence, cigarettes, uncomplicated; J44.9 Chronic obstructive pulmonary disease, unspecified; I25.10 Atherosclerotic heart disease of native coronary artery without angina pectoris; J98.4 Other disorders of lung; J43.9 Emphysema, unspecified
CPT/HCPCS: 71271